=== PATIENT | female | born 1975 | race Caucasian/White ===

== ENCOUNTER 2017-01-13 13:08 | Outpatient (CLI) | payer MEDICAID | END 2017-01-13 13:09 | disposition home or self-care (01) | DX: R42 Dizziness and giddiness (principal); R25.1 Tremor, unspecified; R53.83 Other fatigue ==

== ENCOUNTER 2017-08-22 19:18 | Outpatient (CLI) | payer MEDICAID | END 2017-08-22 19:19 | disposition home or self-care (01) | LOC: LAB.R 19:18 | PROVIDERS: ATTEND Nurse Practitioner Family | DX: N39.0 Urinary tract infection, site not specified (principal); Z11.3 Encounter for screening for infections with a predominantly sexual mode of transmission | CPT/HCPCS: 87086; 87491; 87591 ==

== ENCOUNTER 2017-11-24 08:23 | Outpatient (CLI) | payer MEDICAID ==
[2017-11-24 12:44] LABS: BASOPHILS % (AUTO) 0.5 %; EOSINOPHILS # (AUTO) 0.4 10^3/uL (0.0-0.7); EOSINOPHILS % (AUTO) 6.6 %; LYMPHOCYTES % (AUTO) 31.1 %; MEAN CORPUSCULAR HEMOGLOBIN 29.8 pg (27.0-31.0); MEAN CORPUSCULAR HGB CONC 33.6 g/dL (32.0-36.0); MEAN CORPUSCULAR VOLUME 88.8 fL (81.0-99.0); MEAN PLATELET VOLUME 11.2 fL (7.9-10.8); MONOCYTES # (AUTO) 0.5 10^3/uL (0.0-1.0); MONOCYTES % (AUTO) 7.8 %; NEUTROPHILS # (AUTO) 3.4 10^3/uL (1.5-6.6); PLT - PLATELET COUNT 168 10^3/uL (130-450); RED BLOOD COUNT 4.34 10^6/uL (4.20-5.40); RED CELL DISTRIBUTION WIDTH 13.9 % (12.0-15.0); WHITE BLOOD COUNT 6.3 x10^3/uL (4.8-10.8)
[2017-11-24 13:12] LABS: PLATELET ESTIMATE, MANUAL NORMAL (130-450,000) (NORMAL); PLATELET MORPHOLOGY 1+ LARGE PLATELETS (NORMAL); RBC MORPHOLOGY (MULTIPLE) NORMAL APPEARANCE (NORMAL)
[2017-11-24 13:14] LABS: % IRON SATURATION 21 % (20-50); ALBUMIN 4.2 g/dL (3.2-5.5); ALBUMIN/GLOBULIN RATIO 1.5 (1.0-2.2); ALKALINE PHOSPHATASE 67 IU/L (42-121); ALT ALANINE AMINOTRANSFERASE 18 IU/L (10-60); AST ASPARTATE AMINOTRANSFERASE 31 IU/L (10-42); BILIRUBIN,TOTAL 0.7 mg/dL (0.2-1.0); BUN - BLOOD UREA NITROGEN 11 mg/dL (6-20); CALCIUM 8.9 mg/dL (8.5-10.3); CARBON DIOXIDE - CO2 27 mmol/L (21-32); CHLORIDE 101 mmol/L (101-111); CHOL/HDL RATIO 2.8 (<4.4); CHOLESTEROL 193 mg/dL; CREATININE 0.9 mg/dL (0.4-1.0); GFR - MDRD 68 (>89); GLUCOSE 87 mg/dL (70-100); HDL CHOLESTEROL 69 mg/dL; IRON 80 ug/dL (28-170); LDL CHOLESTEROL,CALCULATED 103 mg/dL; LDL/HDL RATIO 1.5 (<4.4); SODIUM 136 mmol/L (135-145); TOTAL IRON BINDING CAPACITY 372 ug/dL (250-450); TRANSFERRIN 266 mg/dL (192-382); VLDL CHOLESTEROL 21 mg/dL
== END 2017-11-24 08:24 | disposition home or self-care (01) ==
LOC: LAB.F 08:23
PROVIDERS: ATTEND Nurse Practitioner Family
DX: R53.83 Other fatigue (principal); Z13.6 Encounter for screening for cardiovascular disorders
CPT/HCPCS: 36415; 80053; 80061; 83540; 83721; 84443; 84466; 85025

== ENCOUNTER 2018-02-10 13:10 | Outpatient (CLI) | payer MEDICAID ==
--- NOTE | 2018-02-11 16:36 | MRI Report ---
EXAM: LEFT KNEE MRI WITHOUT CONTRAST EXAM DATE: 02/10/2018 01:51 PM. CLINICAL HISTORY: Left knee pain for years. COMPARISON: None. TECHNIQUE: Multiplanar, multisequence T1-weighted and fluid-sensitive sequences of the knee without c ontrast. Other: None. FINDINGS: Bones: No fractures. Red marrow reconversion is in the visualized bones. Articular Cartilage: Unremarkable. Medial Meniscus: The medial meniscus is intact. Lateral Meniscus: The lateral meniscus is intact. Cruciate Ligaments: The anterior and posterior cruciate ligaments are intact. Collateral Ligaments: The medial collateral and lateral collateral ligamentous structures are intact. Tendons: The quadriceps, patellar, semimembranosus, and popliteus tendons are unremarkable. Musculature: No edema or fatty atrophy. Other: No effusion. A moderate-sized popliteal cyst has ruptured. It measures 3.6 x 1.2 x 7.0 cm. No loose bodies. The medial and lateral retinacula are intact. Pre-patellar subcutaneous edema is seen. IMPRESSION: Ruptured, moderate-sized popliteal cyst. [facility]CULOSKE[facility] SECTION Referring Provider Line: [phone] SITE ID: [id number]
== END 2018-02-10 13:11 | disposition home or self-care (01) ==
LOC: DI 13:10
PROVIDERS: ATTEND Nurse Practitioner Family
DX: M25.562 Pain in left knee (principal); M66.0 Rupture of popliteal cyst

== ENCOUNTER 2018-07-26 15:54 | Outpatient (CLI) | payer MEDICAID ==
--- NOTE | 2018-07-26 16:38 | XRAY Report ---
Reason: CHEST PAIN,NON CARDIAC Procedure Date: 07/26/2018 Accession Number: [id number] / [id number] Procedure: XR - Chest 2 View X-Ray CPT Code: 05004 FULL RESULT: EXAM: CHEST RADIOGRAPHY EXAM DATE: 07/26/2018 04:18 PM. CLINICAL HISTORY: CHEST PAIN,NON CARDIAC. COMPARISON: None. TECHNIQUE: 2 views. FINDINGS: Lungs/Pleura: No focal opacities evident. No pleural effusion. No pneumothorax. Normal volumes. Mediastinum: Heart and mediastinal contours are unremarkable. Other: None. IMPRESSION: Normal 2-view chest radiography. [facility]
== END 2018-07-26 15:55 | disposition home or self-care (01) ==
LOC: DI 15:54
PROVIDERS: ATTEND Nurse Practitioner Family
DX: R07.89 Other chest pain (principal)
CPT/HCPCS: 71046

== ENCOUNTER 2019-05-05 11:17 | Emergency (ER) | payer MEDICAID ==
[2019-05-05 12:21] LABS: BASOPHILS # (AUTO) 0.1 10^3/uL (0.0-0.1); BASOPHILS % (AUTO) 0.5 %; EOSINOPHILS # (AUTO) 0.2 10^3/uL (0.0-0.7); EOSINOPHILS % (AUTO) 2.2 %; HGB - HEMOGLOBIN 14.9 g/dL (12.0-16.0); LYMPHOCYTES # (AUTO) 1.1 10^3/uL (1.5-3.5); MEAN CORPUSCULAR HEMOGLOBIN 30.7 pg (27.0-31.0); MEAN CORPUSCULAR HGB CONC 32.8 g/dL (32.0-36.0); MEAN CORPUSCULAR VOLUME 93.6 fL (81.0-99.0); MEAN PLATELET VOLUME 12.9 fL (7.9-10.8); MONOCYTES # (AUTO) 0.6 10^3/uL (0.0-1.0); MONOCYTES % (AUTO) 6.6 %; NEUTROPHILS # (AUTO) 7.1 10^3/uL (1.5-6.6); NEUTROPHILS % (AUTO) 78.3 %; PLT - PLATELET COUNT 131 10^3/uL (130-450); RED BLOOD COUNT 4.85 10^6/uL (4.20-5.40); RED CELL DISTRIBUTION WIDTH 12.8 % (12.0-15.0); WHITE BLOOD COUNT 9.1 x10^3/uL (4.8-10.8)
--- NOTE | 2019-05-05 12:32 | ED Physician Documentation ---
History of Present Illness - Stated complaint Stated Complaint: FAINTING SPELLS, DIZZINESS - Chief complaint Chief Complaint: Neuro - Additonal information Additional information: This is a 43-year-old female who presents with an episode of syncope today. Patient was at home with her son, when she began to feel lightheaded, then she passed out. Her son is with her and states that she did not obviously hit her head. She may have stopped breathing for around 20 seconds, but had a pulse. He then yelled at her and she opened her eyes and woke up, however she was slightly confused for the next several minutes. He did not see any convulsions posturing or seizure-like activity. He is very familiar seizures as his previous partner had a seizure disorder. Patient is now feeling well other than being somewhat dehydrated. She denies chest pain, shortness of breath. She has had an episode of syncope in the past, but has not had the confusion afterwards. She denies tongue biting. She had some leakage of urine but no large volume incontinence. No vomiting or nausea or fever. No headache or vision change. Review of Systems Constitutional: denies: Fever Eyes: denies: Loss of vision Throat: denies: Oral lesions / sores Cardiac: denies: Chest pain / pressure Respiratory: denies: Dyspnea GI: denies: Abdominal Pain : denies: Dysuria Skin: denies: Laceration (s) Musculoskeletal: denies: Neck pain Neurologic: reports: Syncope PD PAST MEDICAL HISTORY - Past Medical History Past Medical History: Yes Cardiovascular: None Respiratory: None Neuro: None GI: None RINKMAN: None : None HEENT: None Psych: Depression, Anxiety Musculoskeletal: None Derm: None - Past Surgical History Past Surgical History: Yes /RINKMAN: section - Allergies Allergies/Adverse Reactions: Allergies Allergy/AdvReac Type Severity Reaction Status Date / Time nortriptyline Allergy Unknown Verified 05/05/19 11:27 - Social History Does the pt smoke?: Yes Smoking Status: Current every day smoker Does the pt drink ETOH?: Yes Does the pt have substance abuse?: Yes Substance Use and Type: Marijuana - Immunizations Immunizations are current?: Yes - POLST Patient has POLST: No Results - Vitals Vitals: Vital Signs - 24 hr 05/05/19 05/05/19 05/05/19 11:27 12:14 12:30 Temperature 36.3 C L Heart Rate 53 L 52 L 52 L Respiratory 16 18 12 Rate Blood Pressure 140/77 H 151/94 H 143/96 H O2 Saturation 99 99 99 05/05/19 13:00 Temperature Heart Rate 55 L Respiratory 14 Rate Blood Pressure 132/95 H O2 Saturation 97 Oxygen O2 Source Room air - EKG (time done) 11:36 Rate: Rate (enter#) Other comments: Other comments (EKG, my interpretation: Rate 53, rhythm sinus bradycardia, axis normal, intervals within normal limits, there is no ST segment elevation or depression.) - Labs Labs: Laboratory Tests 05/05/19 05/05/19 05/05/19 12:15 12:15 12:15 WBC 9.1 RBC 4.85 Hgb 14.9 Hct 45.4 MCV 93.6 MCH 30.7 MCHC 32.8 RDW 12.8 Plt Count 131 MPV 12.9 H Neut # (Auto) 7.1 H Lymph # (Auto) 1.1 L [place] # (Auto) 0.6 Eos # (Auto) 0.2 Baso # (Auto) 0.1 Absolute Nucleated RBC 0.00 Total Counted 100 Band Neuts % (Manual) 13 H Abnorm Lymph % (Manual) 0 Metamyelocytes % 2 H Myelocytes % 1 H Nucleated RBC % 0.0 Neutrophils # (Manual) 7.7 H Lymphocytes # (Manual) 0.5 L Monocytes # (Manual) 0.5 Eosinophils # (Manual) 0.0 Basophils # (Manual) 0.1 Manual Slide Review Indicated Sodium 140 Potassium 3.9 Chloride 104 Carbon Dioxide 26 Anion Gap 10.0 BUN 9 Creatinine 0.8 Estimated GFR (MDRD) 78 L Glucose 101 H Calcium 9.2 Total Bilirubin 0.6 AST 21 ALT 14 Alkaline Phosphatase 50 Troponin I Troponin I High Sens 3.2 Total Protein 7.1 Albumin 4.5 Globulin 2.6 Albumin/Globulin Ratio 1.7 Lipase 26 Urine Color Urine Clarity Urine pH Ur Specific [place] Urine Protein Urine Glucose (UA) Urine Ketones Urine Occult Blood Urine Nitrite Urine Bilirubin Urine Urobilinogen Ur Leukocyte Esterase Ur Microscopic Review Urine Culture Comments 05/05/19 05/05/19 12:15 13:09 WBC RBC Hgb Hct MCV MCH MCHC RDW Plt Count MPV Neut # (Auto) Lymph # (Auto) [place] # (Auto) Eos # (Auto) Baso # (Auto) Absolute Nucleated RBC Total Counted Band Neuts % (Manual) Abnorm Lymph % (Manual) Metamyelocytes % Myelocytes % Nucleated RBC % Neutrophils # (Manual) Lymphocytes # (Manual) Monocytes # (Manual) Eosinophils # (Manual) Basophils # (Manual) Manual Slide Review Sodium Potassium Chloride Carbon Dioxide Anion Gap BUN Creatinine Estimated GFR (MDRD) Glucose Calcium Total Bilirubin AST ALT Alkaline Phosphatase Troponin I < 0.04 Troponin I High Sens Total Protein Albumin Globulin Albumin/Globulin Ratio Lipase Urine Color YELLOW Urine Clarity CLEAR Urine pH 7.0 Ur Specific [place] 1.010 Urine Protein NEGATIVE Urine Glucose (UA) NEGATIVE Urine Ketones NEGATIVE Urine Occult Blood NEGATIVE Urine Nitrite NEGATIVE Urine Bilirubin NEGATIVE Urine Urobilinogen 0.2 (NORMAL) Ur Leukocyte Esterase NEGATIVE Ur Microscopic Review NOT INDICATED Urine Culture Comments NOT INDICATED PD MEDICAL DECISION MAKING - ED course Complexity details: considered differential (Dysrhythmia, dehydration, ACS, vasovagal episode, anemia, electrolyte abnormality, seizure) ED course: On examination patient is well-appearing bradycardia which is patient's baseline, neurologic exam is unremarkable with no deficits. EKG was obtained which showed sinus bradycardia without signs of ischemia or dysrhythmia, no Gleqr-Csbiradde-Dfuks, no QT prolongation, no signs of Brugada syndrome Or hypertrophic cardiomyopathy. Labs are unrevealing, including CBC, CMP, troponin, Urinalysis. Patient is very asymptomatic with no chest pain, no shortness of breath, no abdominal pain. She had a witnessed syncope, with no signs of seizure, she has no tongue biting. I feel that seizure is unlikely. She has no headache, normal neurologic exam I do not feel that she will benefit from imaging of her head today. I think most likely she suffered a vasovagal episode versus lightheadedness and syncope secondary to some mild dehydration. I discussed her work-up as well as the diagnostic uncertainty, recommend that she follow-up closely with her PCP, and she states adequately hydrated, but she avoid any activities that could cause injury to her others if she passes out again. She knows to return to emerge department if she has any concerning symptoms or further episodes of passing out. She was able to ambulate independently without issue, is tolerating p.o. Patient was discharged home in care of family. Departure - Departure Disposition: 01 Home, Self Care Clinical Impression: Syncope Qualifiers: Syncope type: unspecified Qualified Code(s): R55 - Syncope and collapse Condition: Good Instructions: ED Fainting Unkn Cause Follow-Up: Gabriela Moss ARNP [Primary Care Provider] - Within 1 week Comments: You were seen today because you passed out. There is unclear what caused this, but your labs and exam today were reassuring. If you have any further passing out, any chest pain, shortness of breath, fever, confusion, or other concerning symptoms, return to the emergency department immediately. Otherwise please follow-up with your primary care provider. Make sure that you are hydrating adequately, and avoid activities that could be dangerous if you pass out, such as driving, climbing at heights, or bathing/swimming unsupervised. Discharge Date/Time: 05/05/19 15:08
[2019-05-05 12:34] LABS: ALBUMIN 4.5 g/dL (3.2-5.5); ALBUMIN/GLOBULIN RATIO 1.7 (1.0-2.2); BILIRUBIN,TOTAL 0.6 mg/dL (0.2-1.0); CALCIUM 9.2 mg/dL (8.5-10.3); CREATININE 0.8 mg/dL (0.4-1.0); TOTAL PROTEIN 7.1 g/dL (6.7-8.2)
[2019-05-05 12:59] LABS: ABNORMAL LYMPHS % (MANUAL) 0 %
[2019-05-05 13:00] LABS: BAND NEUTROPHILS % (MANUAL) 13 %; BASOPHILS # (MANUAL) 0.1 10^3/uL (0-0.1); BASOPHILS % (MANUAL) 1 %; LYMPHOCYTES # (MANUAL) 0.5 10^3/uL (1.5-3.5); LYMPHOCYTES % (MANUAL) 6 %; METAMYELOCYTES % (MANUAL) 2 %; MONOCYTES # (MANUAL) 0.5 10^3/uL (0.0-1.0); MYELOCYTES % (MANUAL) 1 %
[2019-05-05 13:15] VITALS: BP 132/95
[2019-05-05 13:17] LABS: BILIRUBIN,URINE NEGATIVE (NEGATIVE); GLUCOSE, URINE (UA) NEGATIVE (NEGATIVE); KETONES,URINE (UA) NEGATIVE (NEGATIVE); LEUKOCYTE ESTERASE, URINE NEGATIVE (NEGATIVE); NITRITE,URINE NEGATIVE (NEGATIVE); OCCULT BLOOD,URINE NEGATIVE (NEGATIVE); PROTEIN,URINE NEGATIVE (NEGATIVE); UROBILINOGEN,URINE 0.2 (NORMAL) E.U./dL (NORMAL)
[2019-05-05 13:23] LABS: CLARITY,URINE CLEAR (CLEAR)
--- NOTE | 2019-05-05 13:44 | XRAY Report ---
Reason: cough Procedure Date: 05/05/2019 Accession Number: [id number] / [id number] Procedure: XR - Chest 2 View X-Ray CPT Code: 82306 FULL RESULT: EXAM: CHEST RADIOGRAPHY EXAM DATE: 05/05/2019 01:15 PM. CLINICAL HISTORY: Cough. COMPARISON: CHEST 2 VIEW 07/26/2018 4:18 PM. TECHNIQUE: 2 views. FINDINGS: Lungs/Pleura: No focal opacities evident. No pleural effusion. No pneumothorax. Normal volumes. Mediastinum: Heart and mediastinal contours are unremarkable. Other: None. IMPRESSION: Normal 2-view chest radiography. [facility]
== END 2019-05-05 15:08 | disposition home or self-care (01) ==
LOC: ED 11:17
DX: R55 Syncope and collapse (principal); F17.200 Nicotine dependence, unspecified, uncomplicated
CPT/HCPCS: 36415; 71046; 80053; 81001; 81003; 83690; 84484; 85025; 87086; 93005; 99283; 99284

== ENCOUNTER 2019-10-28 10:00 | Outpatient (CLI) | payer MEDICAID | END 2019-10-28 23:59 | disposition home or self-care (01) | LOC: LAB.R 10:00 | PROVIDERS: ATTEND Physician Assistant Medical | DX: N39.0 Urinary tract infection, site not specified (principal) | CPT/HCPCS: 87086; 87181 ==

== ENCOUNTER 2020-10-23 08:00 | Outpatient (CLI) | payer MEDICAID | END 2020-10-23 23:59 | disposition home or self-care (01) | LOC: LAB.R 08:00 | PROVIDERS: ATTEND Physician Assistant Medical | DX: B00.89 Other herpesviral infection (principal) | CPT/HCPCS: 87252 ==

== ENCOUNTER 2020-10-23 15:00 | Outpatient (CLI) | payer MEDICAID | END 2020-10-23 23:59 | disposition home or self-care (01) | LOC: LAB.S 15:00 | PROVIDERS: ATTEND Physician Assistant Medical | DX: J02.9 Acute pharyngitis, unspecified (principal) | CPT/HCPCS: 87070 ==

== ENCOUNTER 2020-12-11 08:00 | Outpatient (CLI) | payer MEDICAID ==
[2020-12-11 20:05] LABS: BILIRUBIN,URINE NEGATIVE (NEGATIVE); GLUCOSE, URINE (UA) NEGATIVE (NEGATIVE); KETONES,URINE (UA) TRACE mg/dL (NEGATIVE); LEUKOCYTE ESTERASE, URINE NEGATIVE (NEGATIVE); NITRITE,URINE NEGATIVE (NEGATIVE); OCCULT BLOOD,URINE TRACE-INTA (NEGATIVE); PH,URINE 6.5 PH (5.0-7.5); PROTEIN,URINE NEGATIVE (NEGATIVE); UROBILINOGEN,URINE 0.2 (NORMAL) E.U./dL (NORMAL)
[2020-12-11 20:08] LABS: BASOPHILS # (AUTO) 0.1 10^3/uL (0.0-0.1); BASOPHILS % (AUTO) 0.6 %; EOSINOPHILS # (AUTO) 0.6 10^3/uL (0.0-0.7); EOSINOPHILS % (AUTO) 7.3 %; HCT - HEMATOCRIT 46.3 % (37.0-47.0); HGB - HEMOGLOBIN 15.3 g/dL (12.0-16.0); LYMPHOCYTES % (AUTO) 25.4 %; MEAN CORPUSCULAR VOLUME 93.7 fL (81.0-99.0); MEAN PLATELET VOLUME 13.3 fL (7.9-10.8); MONOCYTES # (AUTO) 0.5 10^3/uL (0.0-1.0); MONOCYTES % (AUTO) 6.8 %; NEUTROPHILS # (AUTO) 4.7 10^3/uL (1.5-6.6); NEUTROPHILS % (AUTO) 59.6 %; PLT - PLATELET COUNT 134 10^3/uL (130-450); RED BLOOD COUNT 4.94 10^6/uL (4.20-5.40); RED CELL DISTRIBUTION WIDTH 13.4 % (12.0-15.0); WHITE BLOOD COUNT 7.9 x10^3/uL (4.8-10.8)
[2020-12-11 20:12] LABS: AMORPHOUS SEDIMENT,UR Marked /LPF; BACTERIA,URINE None Seen /HPF (None Seen); CLARITY,URINE CLOUDY (CLEAR); RBC,URINE 0-5 /HPF (0-5); SQUAMOUS EPITHELIAL CELL,UR FEW Squamous (<= Few); WBC,URINE 0-3 /HPF (0-5)
[2020-12-11 20:19] LABS: ALBUMIN 4.1 g/dL (3.2-5.5); ALBUMIN/GLOBULIN RATIO 1.5 (1.0-2.2); BILIRUBIN,TOTAL 1.3 mg/dL (0.2-1.0); CALCIUM 8.6 mg/dL (8.5-10.3); CREATININE 0.8 mg/dL (0.4-1.0); POTASSIUM 3.6 mmol/L (3.5-5.0); TOTAL PROTEIN 6.9 g/dL (6.7-8.2)
[2020-12-11 20:41] LABS: PLATELET MORPHOLOGY 1+ LARGE PLATELETS (NORMAL); RBC MORPHOLOGY (MULTIPLE) NORMAL APPEARANCE (NORMAL)
[2020-12-11 20:42] LABS: PLATELET ESTIMATE, MANUAL NORMAL (130-450,000) (NORMAL)
== END 2020-12-11 23:59 | disposition home or self-care (01) ==
LOC: LAB.S 08:00
PROVIDERS: ATTEND Emergency Medicine
DX: R11.2 Nausea with vomiting, unspecified (principal)
CPT/HCPCS: 36415; 80053; 81001; 83690; 85025; 87086

== ENCOUNTER 2021-01-05 14:39 | Outpatient (CLI) | payer MEDICAID ==
[2021-01-06 02:02] LABS: CHLAMYDIA TRACHOMATIS DNA NEGATIVE (NEGATIVE); NEISSERIA GONORRHOEAE DNA NEGATIVE (NEGATIVE); TRICHOMONAS VAGINALIS DNA NEGATIVE (NEGATIVE)
== END 2021-01-05 23:59 | disposition home or self-care (01) ==
LOC: LAB.R 14:39
PROVIDERS: ATTEND Physician Assistant
DX: Z72.89 Other problems related to lifestyle (principal)
CPT/HCPCS: 87491; 87591; 87661

== ENCOUNTER 2021-03-29 13:23 | Outpatient (CLI) | payer MEDICAID | END 2021-03-29 13:24 | disposition critical access hospital (66) | LOC: EMS 13:23 | DX: R55 Syncope and collapse (principal); R11.10 Vomiting, unspecified; R61 Generalized hyperhidrosis; R53.1 Weakness; R68.83 Chills (without fever) | CPT/HCPCS: A0425; A0427; A0999 ==

== ENCOUNTER 2021-03-29 13:58 | Emergency (ER) | payer MEDICAID ==
[2021-03-29 14:14] VITALS: BP 163/76
[2021-03-29] MEDS ORDERED: SODIUM CHLORIDE 0.9% 1,000 ML IV STA (14:37)
--- NOTE | 2021-03-29 14:58 | ED Physician Documentation ---
History of Present Illness - Stated complaint Stated Complaint: VOMITING - Chief complaint Chief Complaint: Allergic Rx - History obtained from History obtained from: Patient - Additonal information Additional information: Received [employer] Covid vaccine, about a minute later became dizzy and weak and passed out. She came to quickly and her son caught her so there was no injury. 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 : None, Incontinence, Frequency HEENT: None Psych: Depression, Anxiety Musculoskeletal: None Derm: None - Past Surgical History Past Surgical History: Yes /GAME TRAPPER: section - Allergies Allergies/Adverse Reactions: Allergies Allergy/AdvReac Type Severity Reaction Status Date / Time nortriptyline Allergy Unknown Verified 03/29/21 14:10 - Social History Does the pt smoke?: Yes Smoking Status: Current every day smoker Does the pt drink ETOH?: Yes Does the pt have substance abuse?: Yes - Immunizations Immunizations are current?: Yes - POLST Patient has POLST: No PD ED PE NORMAL - Vitals Vital signs reviewed: Yes - General General: Alert and oriented X 3, No acute distress - HEENT HEENT: PERRL, Pharynx benign - Cardiac Cardiac: RRR, No murmur - Respiratory Respiratory: No respiratory distress, Clear bilaterally - Abdomen Abdomen: Soft, Non tender - Back Back: No CVA TTP, No spinal TTP - Derm Derm: Normal color, Warm and dry - Extremities Extremities: No edema, No calf tenderness / cord - Neuro Neuro: Alert and oriented X 3, Normal speech Results - Vitals Vitals: Vital Signs - 24 hr 03/29/21 03/29/21 14:10 14:14 Temperature 36.5 C 36.5 C Heart Rate 54 L 54 L Respiratory 16 16 Rate Blood Pressure 163/76 H 163/76 H O2 Saturation 98 98 Oxygen O2 Source Room air - EKG (time done) 1442 Rate: Rate (enter#) (56) Rhythm: NSR [place]: Normal QRS: LVH Ischemia: Normal ST segments - Labs Labs: Laboratory Tests 03/29/21 03/29/21 14:59 14:59 WBC 15.2 H RBC 4.94 Hgb 15.2 Hct 46.5 MCV 94.1 MCH 30.8 MCHC 32.7 RDW 13.7 Plt Count 127 L MPV 12.3 H Neut # (Auto) 12.9 H Lymph # (Auto) 1.1 L [place] # (Auto) 1.0 Eos # (Auto) 0.1 Baso # (Auto) 0.1 Absolute Nucleated RBC 0.00 Nucleated RBC % 0.0 Sodium 135 Potassium 3.4 L Chloride 100 L Carbon Dioxide 23 Anion Gap 12.0 BUN 11 Creatinine 0.7 Estimated GFR (MDRD) 90 Glucose 115 H Calcium 8.2 L Total Bilirubin 0.8 AST 18 ALT 14 Alkaline Phosphatase 54 Total Protein 6.3 L Albumin 4.0 Globulin 2.3 Albumin/Globulin Ratio 1.7 Lipase 25 PD MEDICAL DECISION MAKING - ED course ED course: 45-year-old woman presents with what sounds like a vasovagal reaction afternoon vaccination today. No signs of allergic reaction or anaphylaxis. We will observe her for a little bit and check some baseline labs. After period of observations her symptoms had resolved and she requested discharge. Departure - Departure Disposition: 01 Home, Self Care Clinical Impression: Syncope Qualifiers: Syncope type: vasovagal syncope Qualified Code(s): R55 - Syncope and collapse Condition: Good Record reviewed to determine appropriate education?: Yes Instructions: ED Syncope Vasovagal Comments: Call your doctor to arrange a follow-up appointment, make the next available appointment. In the interim, return anytime if worse or if new symptoms develop. Discharge Date/Time: 03/29/21 15:45
[2021-03-29 15:11] LABS: BASOPHILS # (AUTO) 0.1 10^3/uL (0.0-0.1); BASOPHILS % (AUTO) 0.5 %; EOSINOPHILS # (AUTO) 0.1 10^3/uL (0.0-0.7); EOSINOPHILS % (AUTO) 0.8 %; HCT - HEMATOCRIT 46.5 % (37.0-47.0); HGB - HEMOGLOBIN 15.2 g/dL (12.0-16.0); LYMPHOCYTES # (AUTO) 1.1 10^3/uL (1.5-3.5); LYMPHOCYTES % (AUTO) 7.2 %; MEAN CORPUSCULAR HEMOGLOBIN 30.8 pg (27.0-31.0); MEAN CORPUSCULAR HGB CONC 32.7 g/dL (32.0-36.0); MEAN CORPUSCULAR VOLUME 94.1 fL (81.0-99.0); MEAN PLATELET VOLUME 12.3 fL (7.9-10.8); MONOCYTES % (AUTO) 6.4 %; NEUTROPHILS # (AUTO) 12.9 10^3/uL (1.5-6.6); NEUTROPHILS % (AUTO) 84.6 %; PLT - PLATELET COUNT 127 10^3/uL (130-450); RED BLOOD COUNT 4.94 10^6/uL (4.20-5.40); RED CELL DISTRIBUTION WIDTH 13.7 % (12.0-15.0); WHITE BLOOD COUNT 15.2 x10^3/uL (4.8-10.8)
[2021-03-29 15:19] LABS: ALBUMIN/GLOBULIN RATIO 1.7 (1.0-2.2); BILIRUBIN,TOTAL 0.8 mg/dL (0.2-1.0); CALCIUM 8.2 mg/dL (8.5-10.3); CREATININE 0.7 mg/dL (0.4-1.0); POTASSIUM 3.4 mmol/L (3.5-5.0); TOTAL PROTEIN 6.3 g/dL (6.7-8.2)
== END 2021-03-29 15:45 | disposition home or self-care (01) ==
LOC: EDUNIT# → ED 13:58
DX: R55 Syncope and collapse (principal); T50.B95A Adverse effect of other viral vaccines, initial encounter; Y84.8 Other medical procedures as the cause of abnormal reaction of the patient, or of later complication, without mention of misadventure at the time of the procedure; F17.200 Nicotine dependence, unspecified, uncomplicated
CPT/HCPCS: 36415; 80053; 83690; 85025; 93005; 99282; 99283

== ENCOUNTER 2021-08-09 11:25 | Outpatient (CLI) | payer MEDICAID | END 2021-08-09 11:26 | disposition critical access hospital (66) | LOC: EMS 11:25 | DX: M25.512 Pain in left shoulder (principal) | CPT/HCPCS: A0425; A0427 ==

== ENCOUNTER 2021-08-09 11:49 | Emergency (ER) | payer MEDICAID ==
[2021-08-09] MEDS ORDERED: KETOROLAC 30 MG/ML VIAL IVP STA (12:02)
[2021-08-09] MEDS ORDERED: diazePAM INJ 5 MG/ML SYRINGE IVP STA (12:02)
--- NOTE | 2021-08-09 12:07 | ED Physician Documentation ---
History of Present Illness - Stated complaint Stated Complaint: SHOULDER PAIN - Chief complaint Chief Complaint: Ext Problem - History obtained from History obtained from: Patient - Additonal information Additional information: Comes emergency department chief complaint of left shoulder pain that started this morning. Patient states she felt the pain back by her left scapula and thought that she had "slept wrong". She states she went to take a shower and pain started getting worse. She states it hurts to move, and no position makes it better. No chest pain or shortness of breath. No lightheadedness. No injury or history of any shoulder problems previously. No other complaints at this time. Review of Systems Ten Systems: 10 systems reviewed and negative Constitutional: reports: Reviewed and negative Eyes: reports: Reviewed and negative Ears: reports: Reviewed and negative Nose: reports: Reviewed and negative Throat: reports: Reviewed and negative Cardiac: reports: Reviewed and negative Respiratory: reports: Reviewed and negative GI: reports: Reviewed and negative : reports: Reviewed and negative Skin: reports: Reviewed and negative Musculoskeletal: reports: Joint pain Neurologic: reports: Reviewed and negative Psychiatric: reports: Reviewed and negative Endocrine: reports: Reviewed and negative Immunocompromised: reports: Reviewed and negative PD PAST MEDICAL HISTORY - Past Medical History Cardiovascular: None Respiratory: None Neuro: None GI: None 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 : None, Incontinence, Frequency HEENT: None Psych: Depression, Anxiety Musculoskeletal: None Derm: None - Past Surgical History Past Surgical History: Yes /AIR LAUNCH WEAPONS 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: section - Present Medications Home Medications: Ambulatory Orders Medication Instructions Recorded Confirmed Cyclobenzaprine [Flexeril] 10 mg PO TID PRN #20 tablet 08/09/21 HYDROcod/ACETAM 5/325 [Bluejacket 5/325] 1 - 2 tablet PO Q6H PRN #14 tablet 08/09/21 - Allergies Allergies/Adverse Reactions: Allergies Allergy/AdvReac Type Severity Reaction Status Date / Time nortriptyline Allergy Unknown Verified 08/09/21 12:01 - Social History Does the pt smoke?: Yes Smoking Status: Current every day smoker Does the pt drink ETOH?: Yes Does the pt have substance abuse?: Yes - Immunizations Immunizations are current?: Yes - POLST Patient has POLST: No PD ED PE NORMAL - Vitals Vital signs reviewed: Yes - General General: Alert and oriented X 3, Well developed/nourished, Other (Patient is wincing and gripping her left shoulder) - HEENT HEENT: Atraumatic, PERRL, EOMI, Moist mucous membranes - Neck Neck: Supple, no meningeal sign - Cardiac Cardiac: RRR, No murmur - Respiratory Respiratory: No respiratory distress, Clear bilaterally - Abdomen Abdomen: Soft, Non tender, Non distended - Derm Derm: Normal color, Warm and dry, No rash - Extremities Extremities: No deformity, No edema, No calf tenderness / cord, Other (Patient is holding her left arm across her body, gripping back toward the posterior aspect of the shoulder. Marked tenderness over the lateral aspect of left shoulder as well as intrascapular musculature. No contusion, deformity, or edema.). 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, No motor deficit, No sensory deficit, Normal speech - Psych Psych: Normal mood, Normal affect Results - Vitals Vitals: Oxygen O2 Source Room air - EKG (time done) 1244 Rate: Rate (enter#) (54) Rhythm: NSR [place]: Other (indeterminate axis) Intervals: Normal MD QRS: LVH Ischemia: Normal ST segments Compare to prior EKG: Old EKG unavailable Computer interpretation: Agree with computer - Labs Labs: Laboratory Tests 08/09/21 08/09/21 08/09/21 13:02 13:02 13:02 WBC 12.3 H RBC 5.09 Hgb 16.0 Hct 48.0 H MCV 94.3 MCH 31.4 H MCHC 33.3 RDW 13.0 Plt Count 165 MPV 12.3 H Neut # (Auto) 10.4 H Lymph # (Auto) 1.0 L [place] # (Auto) 0.7 Eos # (Auto) 0.2 Baso # (Auto) 0.1 Absolute Nucleated RBC 0.00 Nucleated RBC % 0.0 D-Dimer 219.3 Sodium 139 Potassium 3.4 L Chloride 103 Carbon Dioxide 25 Anion Gap 11.0 BUN 11 Creatinine 0.7 Estimated GFR (MDRD) 89 Glucose 108 H Calcium 8.9 Total Bilirubin 0.5 AST 25 ALT 20 Alkaline Phosphatase 60 Troponin I High Sens Total Protein 7.1 Albumin 4.7 Globulin 2.4 Albumin/Globulin Ratio 2.0 Lipase 32 08/09/21 13:02 WBC RBC Hgb Hct MCV MCH MCHC RDW Plt Count MPV Neut # (Auto) Lymph # (Auto) [place] # (Auto) Eos # (Auto) Baso # (Auto) Absolute Nucleated RBC Nucleated RBC % D-Dimer Sodium Potassium Chloride Carbon Dioxide Anion Gap BUN Creatinine Estimated GFR (MDRD) Glucose Calcium Total Bilirubin AST ALT Alkaline Phosphatase Troponin I High Sens 3.4 Total Protein Albumin Globulin Albumin/Globulin Ratio Lipase - Rads (name of study) L shoulder XR Radiology: Final report received, EMP read indepedently, See rad report (neg) chest XR Radiology: Final report received, EMP read indepedently, See rad report (neg) PD MEDICAL DECISION MAKING - ED course Complexity details: reviewed results, re-evaluated patient, considered differential, d/w patient ED course: Patient was treated symptomatically in the emergency department and worked up with x-rays of the shoulder and chest, as well as EKG, all of which were negative. The pt had point tenderness and positional pain, and her sx were most consistent with a musculoskeletal etiology. Pt was treated with Valium, Toradol, Dilaudid, and Flexeril, in addition to the morphine she had received en-route. The pt stated none of it had helped her pain at all. She states that when she has had pain issues previously, 2 tabs of Vicodin has helped. I d/w pt that we have not discovered an emergent condition today. I will give her a prescription for a small amount of Vicodin at home. The pt is advised to follow up with her PCP. Departure - Departure Disposition: 01 Home, Self Care Clinical Impression: Pain of left scapula Shoulder pain, left Qualifiers: Chronicity: acute Qualified Code(s): M25.512 - Pain in left shoulder Condition: Stable Instructions: ED Spasm Muscle, ED Shoulder Pain [facility] Prescriptions: Cyclobenzaprine [Flexeril] 10 mg PO TID PRN #20 tablet PRN Reason: Spasms HYDROcod/ACETAM 5/325 [Bluejacket 5/325] 1 - 2 tablet PO Q6H PRN #14 tablet PRN Reason: Pain Comments: You have been tested with basic labs, as well as various tests to look for potential emergent causes of your symptoms. There is no evidence of a heart attack, blood clot, pneumothorax, aneurysm, or pneumonia. Your shoulder and chest x-rays look good. Your EKG also shows no evidence of an emergent cardiac condition. You have been treated with IV muscle relaxers, oral muscle relaxer, anti-inflammatory, and a strong narcotic pain medication, both in the ambulance and here in the emergency department. It is not clear why you continue to have some edge pain. You have been prescribed Vicodin, which you say has worked for you before. You may take up to 2 tablets every 4-6 hours as needed for pain. Please make an appointment with your primary care physician to be seen this week to follow-up your emergency department visit. Discharge Date/Time: 08/09/21 14:20
[2021-08-09 12:12] VITALS: BP 236/205
[2021-08-09] MEDS ORDERED: HYDROmorphone 1 MG/ML CARPUJECT IVP STA (12:46)
--- NOTE | 2021-08-09 12:52 | XRAY Report ---
PROCEDURE: Shoulder 3 View LT INDICATIONS: pain TECHNIQUE: 3 views of the shoulder were acquired. COMPARISON: None. FINDINGS: Bones: No fractures or dislocations. No suspicious bony lesions. Visualized ribs appear intact. Soft tissues: No suspicious soft tissue calcifications. IMPRESSION: No evidence acute bony abnormality of the left shoulder. If clinical suspicion and/or symptoms persist, further assessment with repeat plain films or advanced imaging (e.g., CT, MRI, or bone scan) may be helpful for further assessment. Reviewed by: Elijah Ch MD on 08/09/2021 12:51 PM PST Approved by: Elijah Ch MD on 08/09/2021 12:51 PM PST Station ID: [id number]
--- NOTE | 2021-08-09 12:53 | XRAY Report ---
PROCEDURE: Chest 1 View X-Ray INDICATIONS: chest pain TECHNIQUE: One view of the chest was acquired. COMPARISON: 05/05/2019 FINDINGS: Surgical changes and devices: None. Lungs and pleura: No pleural effusions or pneumothorax. Lungs are grossly clear. Mediastinum: Mediastinal contours appear normal. Heart size is normal. Bones and chest wall: No suspicious bony lesions. Overlying soft tissues appear unremarkable. IMPRESSION: No gross infiltrates. Reviewed by: Elijah Ch MD on 08/09/2021 12:51 PM [facility] Approved by: Elijah Ch MD on 08/09/2021 12:51 PM [facility] Station ID: [id number]
[2021-08-09] MEDS ORDERED: DEXAMETHASONE 10 MG/ML VIAL IVP STA (12:54)
[2021-08-09 13:10] LABS: BASOPHILS # (AUTO) 0.1 10^3/uL (0.0-0.1); BASOPHILS % (AUTO) 0.5 %; EOSINOPHILS # (AUTO) 0.2 10^3/uL (0.0-0.7); EOSINOPHILS % (AUTO) 1.6 %; LYMPHOCYTES % (AUTO) 8.4 %; MEAN CORPUSCULAR HEMOGLOBIN 31.4 pg (27.0-31.0); MEAN CORPUSCULAR HGB CONC 33.3 g/dL (32.0-36.0); MEAN CORPUSCULAR VOLUME 94.3 fL (81.0-99.0); MEAN PLATELET VOLUME 12.3 fL (7.9-10.8); MONOCYTES # (AUTO) 0.7 10^3/uL (0.0-1.0); MONOCYTES % (AUTO) 5.3 %; NEUTROPHILS # (AUTO) 10.4 10^3/uL (1.5-6.6); NEUTROPHILS % (AUTO) 83.9 %; PLT - PLATELET COUNT 165 10^3/uL (130-450); RED BLOOD COUNT 5.09 10^6/uL (4.20-5.40); WHITE BLOOD COUNT 12.3 x10^3/uL (4.8-10.8)
[2021-08-09 13:22] LABS: ALBUMIN 4.7 g/dL (3.2-5.5); BILIRUBIN,TOTAL 0.5 mg/dL (0.2-1.0); CALCIUM 8.9 mg/dL (8.5-10.3); CREATININE 0.7 mg/dL (0.4-1.0); POTASSIUM 3.4 mmol/L (3.5-5.0); TOTAL PROTEIN 7.1 g/dL (6.7-8.2)
[2021-08-09] MEDS ORDERED: CYCLOBENZAPRINE 10 MG TABLET PO STA (13:52)
== END 2021-08-09 14:20 | disposition home or self-care (01) ==
LOC: EDUNIT# → ED 11:49
DX: M25.512 Pain in left shoulder (principal); F17.200 Nicotine dependence, unspecified, uncomplicated
CPT/HCPCS: 36415; 71045; 73030; 80053; 83690; 84484; 85025; 85379; 93005; 96374; 96375; 99284; 99285; A9270; J1170

== ENCOUNTER 2021-08-20 15:56 | Emergency (ER) | payer MEDICAID ==
[2021-08-20] MEDS ORDERED: KETOROLAC 60 MG/2 ML VIAL IM STA (17:25)
[2021-08-20] MEDS ORDERED: DEXAMETHASONE 10 MG/ML VIAL PO STA (17:25)
[2021-08-20] MEDS ORDERED: CHERRY SYRUP 10 ML UDC PO ONE (17:25)
--- NOTE | 2021-08-20 17:28 | ED Physician Documentation ---
PD HPI BACK PAIN - Stated complaint Stated Complaint: PX RT NECK/SHOULD/ARM - Chief complaint Chief Complaint: Back Pain - History obtained from History obtained from: Patient - History of Present Illness Timing - onset: How many days ago (12) Timing - duration: Days (12) Timing - details: Abrupt onset, Still present Location: Upper, Left Quality: Pain, Spasm, Sharp Associated symptoms: Numbness (To the left hand and volar forearm). No: Fever, Weakness Improves with: Rest, Position, Meds Worsened by: Movement Similar symptoms before: Diagnosis Recently seen: Clinic, Emergency Dept - Additional information Additional information: 46-year-old female reports that 12 days ago she awoke with pain in the left side of her upper back and this has persisted. She did seek treatment as the pain was severe and she had some relief with Toradol administered in the urgent care clinic. She has recently been started on some prednisone and despite that still no relief with her symptoms. She is to having some numbness to the fingers on the left hand as well as the volar surface of the forearm. She feels like her hand wants to cramp up. She was seen and treated in the emergency department on 09 August and at that time she had a prescription for 14 Vicodin. She states that helped very little. She has not had any significant relief from her pain and comes into the emergency department today in tears. She has not been able to get into see her primary care doctor in follow-up. She does not recall an injury prior to this but she does recall that about a week before this all started she did have an episode where she ended up on the floor of her kitchen. She has been evaluated previously for syncopal episodes and she states that with this fall she did feel bruised but did not have any significant pain and certainly not the pain that she is experiencing in her left shoulder. Review of Systems Constitutional: denies: Fever, Chills Eyes: denies: Decreased vision Ears: denies: Ear pain Nose: denies: Congestion Throat: denies: Sore throat Cardiac: denies: Chest pain / pressure, Palpitations Respiratory: denies: Dyspnea, Cough GI: denies: Abdominal Pain, Nausea, Vomiting, Constipation, Diarrhea : denies: Dysuria, Frequency Skin: denies: Rash Musculoskeletal: reports: Neck pain, Back pain, Extremity pain Neurologic: reports: Numbness, Syncope. 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: section - Present Medications Home Medications: Ambulatory Orders Medication Instructions Recorded Confirmed Cyclobenzaprine [Flexeril] 10 mg PO TID PRN #20 tablet 08/09/21 HYDROcod/ACETAM 5/325 [[place] 5/325] 1 - 2 tablet PO Q6H PRN #14 tablet 08/09/21 Hydrocodone/Acetaminophen 1 - 2 each PO Q6HR PRN #14 tablet 08/20/21 [Hydrocodone-Acetamin 10-325 mg] - Allergies Allergies/Adverse Reactions: Allergies Allergy/AdvReac Type Severity Reaction Status Date / Time nortriptyline Allergy Unknown Verified 08/20/21 16:07 - Social History Does the pt smoke?: Yes Smoking Status: Current every day smoker Does the pt drink ETOH?: Yes Does the pt have substance abuse?: Yes - Immunizations Immunizations are current?: Yes - POLST Patient has POLST: No PD ED PE NORMAL - Vitals Vital signs reviewed: Yes (Marked hypertension) - General General: Alert and oriented X 3, Well developed/nourished - HEENT HEENT: Atraumatic, PERRL, EOMI - Neck Neck: Supple, no meningeal sign, No bony TTP, Other (There is dense muscle spasm overlying the insertion of the spinal accessory over the posterior aspect of the left shoulder over the supraspinatus. There is no specific point tenderness to the bony cervical spine. Palpation of this area induces the pain the pain the patient is having) - Cardiac Cardiac: RRR, No murmur - Respiratory Respiratory: No respiratory distress, Clear bilaterally - Abdomen Abdomen: Soft, Non tender - Derm Derm: Normal color, Warm and dry, No rash - Extremities Extremities: No deformity, No edema - Neuro Neuro: Alert and oriented X 3, documentation improvement specialist 2-12 intact, No motor deficit, No sensory deficit, Normal speech Eye Opening: Spontaneous Motor: Obeys Commands Verbal: Oriented GCS Score: 15 - Psych Psych: Normal mood, Normal affect Results - Vitals Vitals: Vital Signs - 24 hr 08/20/21 08/20/21 08/20/21 16:03 17:18 18:46 Temperature 36.8 C Heart Rate 75 90 59 L Respiratory 20 20 16 Rate Blood Pressure 218/140 H 220/137 H 186/104 H O2 Saturation 98 96 98 Oxygen O2 Source Room air Procedures - IVC sono (time) 1740 Bedside IVC sono: IVC measures (cm) (0.65), IVC collapsed c insp (cm) (complete), Profound dehydration (est 3 liter deficit) PD MEDICAL DECISION MAKING - ED course Complexity details: reviewed old records, reviewed results, re-evaluated patient, considered differential, d/w patient ED course: 46-year-old female with dense spasm of muscles in her left upper back has had poor relief with the usual treatments. She comes into the emergency department today appearing to be in pain markedly elevated blood pressure and I reviewed the patient's chart to find that she had been evaluated for syncopal episodes previously and I inquired about her hydration status. She ensured she assured me she drinks plenty of fluid. She tells me that she drinks Snapple tea and that she feels she has addiction to this. I became concerned about dehydration contributing to this patient's symptoms not improving and interrogated her inferior vena cava with a bedside ultrasound. I was surprised to find the degree of dehydration. Her vessel measured a scant 0.65 cm collapses completely with respiration indicating a volume deficit of more than 3 L. I discussed with the patient this with the patient and offered additional treatment to include intravenous fluid. She is administered dexamethasone 10 mg orally as well as Toradol 60 mg IM. IV line was begun after the patient had been treated. Departure - Departure Disposition: 01 Home, Self Care Clinical Impression: Cervical radiculopathy, Dehydration Condition: Stable Instructions: ED Dehydration, ED Cervical Radiculopathy Follow-Up: Maria Elena Hooker ARNP [Primary Care Provider] - Prescriptions: Hydrocodone/Acetaminophen [Hydrocodone-Acetamin 10-325 mg] 1 - 2 each PO Q6HR PRN #14 tablet PRN Reason: Pain
[2021-08-20] MEDS ORDERED: SODIUM CHLORIDE 0.9% 1,000 ML IV STA (17:43)
[2021-08-20 18:50] VITALS: BP 186/104
== END 2021-08-20 19:05 | disposition home or self-care (01) ==
LOC: ED 15:56
DX: M54.12 Radiculopathy, cervical region (principal); M62.830 Muscle spasm of back; E86.0 Dehydration; R03.0 Elevated blood-pressure reading, without diagnosis of hypertension; F17.200 Nicotine dependence, unspecified, uncomplicated
CPT/HCPCS: 96360; 96372; 99283; 99284; A9270

== ENCOUNTER 2021-08-24 11:28 | Emergency (ER) | payer MEDICAID ==
--- NOTE | 2021-08-24 12:27 | ED Physician Documentation ---
PD HPI NECK PAIN - Stated complaint Stated Complaint: BACK PAIN - Chief complaint Chief Complaint: Back Pain - History obtained from History obtained from: Patient - Additional information Additional information: 46-year-old woman who awoke on August 09 with severe pain in the left side of the neck shoulder and radiating down the left arm. She has a burning pain that also feels like someone is running a car up and down her left arm and doing doughnuts. She is numb in the left arm. She was seen here initially and given symptomatic relief which was modestly helpful. Seen again 3 days ago and diagnosed with dehydration, IV fluids and pushing oral fluids have not been helpful. 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 - Present Medications Home Medications: Ambulatory Orders Medication Instructions Recorded Confirmed Cyclobenzaprine [Flexeril] 10 mg PO TID PRN #20 tablet 08/09/21 08/24/21 HYDROcod/ACETAM 5/325 [[place] 5/325] 1 - 2 tablet PO Q6H PRN #14 tablet 08/09/21 08/24/21 Hydrocodone/Acetaminophen 1 - 2 each PO Q6HR PRN #14 tablet 08/20/21 08/24/21 [Hydrocodone-Acetamin 10-325 mg] Meloxicam [Mobic] 7.5 mg PO BID PRN #20 tablet 08/24/21 Oxycodone HCl/Acetaminophen 1 - 2 each PO Q6H PRN #20 tablet 08/24/21 [Percocet 5-325 mg Tablet] predniSONE [Deltasone] 20 mg PO [id number] #21 tab 08/24/21 - Allergies Allergies/Adverse Reactions: Allergies Allergy/AdvReac Type Severity Reaction Status Date / Time nortriptyline Allergy Unknown Verified 08/24/21 11:49 - Social History Does the pt smoke?: Yes Smoking Status: Current every day smoker Does the pt drink ETOH?: Yes Does the pt have substance abuse?: Yes - Immunizations Immunizations are current?: Yes - POLST Patient has POLST: No PD ED PE NORMAL - Vitals Vital signs reviewed: Yes - General General: Alert and oriented X 3, Other (She appears uncomfortable and is crying) - HEENT HEENT: PERRL, EOMI - Neck Neck: Supple, no meningeal sign, No bony TTP - Cardiac Cardiac: RRR, No murmur - Abdomen Abdomen: Normal bowel sounds, Soft, Non tender - Back Back: No CVA TTP, No spinal TTP - Derm Derm: Normal color, Warm and dry - Extremities Extremities: Other (Is relative numbness on both sides of the left forearm, she is unable to digital content coordinator with the left forearm due to pain. I am unable to assess strength in the left arm due to pain.) - Neuro Neuro: Alert and oriented X 3, Normal speech Results - Vitals Vitals: Vital Signs - 24 hr 08/24/21 08/24/21 11:46 15:21 Temperature 36.4 C L 36.7 C Heart Rate 79 68 Respiratory 22 17 Rate Blood Pressure 196/118 H 170/88 H O2 Saturation 96 100 Oxygen O2 Source Room air - Rads (name of study) MRI [facility] Radiology: Final report received, EMP read contemporaneously PD MEDICAL DECISION MAKING - ED course ED course: C3-C4: Mild bilateral foraminal narrowing. C4-C5: Mild canal narrowing. Moderate L and mild R foraminal stenosis. C5-C6: Minimal canal narrowing. Moderate bilateral foraminal stenosis, with nerve root compression on both sides. C6-C7: Mild canal narrowing. Mild R foraminal stenosis. Moderate L foraminal narrowing with slight nerve root compression. C7-T1: Prominent L paramedian disc osteophyte complex/protrusion. There is L-sided mild to moderate canal narrowing. There is slight mass effect on the L aspect of the cord. There is severe L foraminal stenosis with nerve root compression. Mild R foraminal narrowing. IMPRESSION: Prominent L C7-T1 paramedian disc osteophyte complex/protrusion with associated mass effect on the cord and severe L foraminal stenosis. Case discussed with Dr. Rakesh Panda, on-call spinal surgeon in [place] who did review her images. States this patient probably will need surgery but can follow-up as an outpatient. Patient comfortable with plan. I am prescribing a short course of short-acting opioid pain medication for this patient. I have reviewed the patients REGULATORY AUDITOR and no concerning findings were noted. I have discussed that the opioids are for short term therapy only, and will not be refilled from the ED. Departure - Departure Disposition: 01 Home, Self Care Clinical Impression: Cervical radiculopathy Condition: Good Record reviewed to determine appropriate education?: Yes Instructions: ED Cervical Radiculopathy Follow-Up: RAKESH PANDA MD [Physician No Access] - Prescriptions: predniSONE [Deltasone] 20 mg PO [id number] #21 tab Meloxicam [Mobic] 7.5 mg PO BID PRN #20 tablet PRN Reason: Pain Oxycodone HCl/Acetaminophen [Percocet 5-325 mg Tablet] 1 - 2 each PO Q6H PRN #20 tablet PRN Reason: pain Comments: As discussed, you do definitely have a pinched nerve in your neck. You are likely to need surgery based on my conversation with the spine surgeon doroteo. You should call his office for an appointment. Return for new or worsening symptoms. Prescription sent electronically to [facility] in [place] I am prescribing a short course of narcotic pain medication for you. These are potentially dangerous and addictive medications that should be used carefully. These medications may constipate you. Take an mkhe-vuf-xnufgqg stool softener (docusate) twice daily with plenty of water while taking these medications. If you go 24 hours without a bowel movement, take nucg-[id number] miralax, per package instructions. Do not drink or drive while taking these medications. If you received narcotic or sedating medications while in the emergency department, do not drive for 24 hours. Store this medication in a safe, secure place and out of reach of children. It is a violation of federal law to give or sell this medication to another person or to use in a manner other than prescribed. The ED will not refill narcotic prescriptions, including prescriptions lost or stolen. To dispose of unwanted medications: 1. [facility] [address] in [place] has a medication drop box. They accept prescription medications (in pill form) Monday through Monday 9:00 a.m. to 5:00 p.m. 2. The [facility] accepts prescription medications (in pill form only) for disposal year round. Call for more information. 3. Contact the [facility] for the next [employer] sponsored prescription drug collection event. , [phone], or [phone]; Note that many narcotic pain relievers also contain Tylenol/acetaminophen. Please ensure that your total dose of acetaminophen from all sources does not exceed 3 g (3000 mg) per day.
[2021-08-24] MEDS: DEXAMETHASONE 10 MG/ML VIAL IVP STA (12:42)
[2021-08-24] MEDS: KETOROLAC 30 MG/ML VIAL IVP STA ×2 (12:42→14:29)
--- NOTE | 2021-08-24 14:16 | MRI Report ---
PROCEDURE: Cervical Spine W/O INDICATIONS: intractable cervical radiculopathy TECHNIQUE: Noncontrast sagittal T1 spin echo and T2 fast spin echo, sagittal STIR, foraminal oblique sagittal T2 fast spin echo, and axial gradient echo or T2 fast spin echo through the cervical spine. COMPARISON: None. FINDINGS: Image quality: Excellent Alignment and Curvature: Straightening of the normal lordotic curvature. Bone Marrow: No acute fracture. Multilevel endplate degenerative sclerosis and spurring. Diffuse fa cet arthropathy. Spinal Cord: Visualized spinal cord has normal size and signal. No cerebellar tonsillar herniation. Paraspinous Soft Tissues: No paravertebral masses. Prevertebral soft tissues are normal in thicknes s. C2-C3: Normal in appearance. C3-C4: No canal stenosis. Mild bilateral foraminal narrowing. C4-C5: Mild canal narrowing. Moderate left and mild right foraminal stenosis. C5-C6: Minimal canal narrowing. Moderate bilateral foraminal stenosis, with nerve root compression o n both sides. C6-C7: Mild canal narrowing. Mild right foraminal stenosis. Moderate left foraminal narrowing with s light nerve root compression. C7-T1: Prominent left paramedian disc osteophyte complex/protrusion. There is left-sided mild to mod erate canal narrowing. There is slight mass effect on the left aspect of the cord. There is severe le ft foraminal stenosis with nerve root compression. Mild right foraminal narrowing. IMPRESSION: Prominent left C7-T1 paramedian disc osteophyte complex/protrusion with associated mass effect on the cord and severe left foraminal stenosis. Additional bilateral foraminal stenoses as detailed above by spinal level. Reviewed by: Andres Mcdaniels MD on 08/24/2021 2:15 PM PST Approved by: Andres Mcdaniels MD on 08/24/2021 2:15 PM PST Station ID: [id number]
[2021-08-24] MEDS: ACETAMINOPHEN 325 MG TABLET PO STA (14:29)
[2021-08-24 15:21] VITALS: BP 170/88
== END 2021-08-24 16:35 | disposition home or self-care (01) ==
LOC: ED 11:28
DX: M50.13 Cervical disc disorder with radiculopathy, cervicothoracic region (principal); R20.0 Anesthesia of skin; F17.200 Nicotine dependence, unspecified, uncomplicated
CPT/HCPCS: 72141; 96374; 96375; 99284; A9270

== ENCOUNTER 2021-09-09 09:31 | Outpatient (CLI) | payer MEDICAID ==
--- NOTE | 2021-09-09 10:07 | CT Report ---
PROCEDURE: CERVICAL SPINE WO INDICATIONS: Cervical radiculopathy, herniated cervical disc TECHNIQUE: Noncontrast 3 mm thick sections acquired from the skull base to the T4 level. Sagittal and coronal r eformats were then constructed. For radiation dose reduction, the following was used: automated exp osure control, adjustment of mA and/or kV according to patient size. COMPARISON: 08/24/2021 cervical spine MRI FINDINGS: Normal configuration of the craniocervical junction. Straightening of the usual cervical lordosis wit h otherwise normal alignment. Vertebral body heights maintained. From C3-C4 through C6-C7, there is mild degenerative endplate irregularity related to degenerative di sc disease. There is also some endplate sclerosis and posterior osteophytic ridging of the endplates. No suspicious lytic or blastic osseous lesion. Regional unenhanced soft tissues are within normal limits. Included portions of the lung apices are c lear. At C2-C3, no spinal canal or neural foraminal stenosis. At C3-C4, posterior disc osteophyte complex minimally flattens the ventral thecal sac without mass ef fect upon the cord. Mild bilateral neural foraminal narrowing due to facet and uncovertebral hypertro phy. At C4-C5, posterior disc osteophyte complex flattens the ventral cord. Facet and uncovertebral hypert rophy contribute to mild bilateral neural foraminal narrowing. At C5-C6, posterior discussed by complex flattens the ventral cord. Moderate bilateral neural foramin al narrowing due to facet and uncovertebral hypertrophy. At C6-C7, mild spinal canal stenosis with flattening of the ventral cord due to posterior disc osteop hyte complex. Facet and uncovertebral hypertrophy contribute to moderate bilateral neural foraminal n arrowing. At C7-T1, prominent disc extrusion in the left lateral recess with mild flattening and displacement o f the cord. Severe left neural foraminal narrowing due to the disc extrusion along with some uncovert ebral spurring. Annular component of the disc does not appear to be calcified. IMPRESSION: Multilevel multifactorial degenerative changes similar to 08/24/2021 MRI. Severe neural foraminal stenosis and mild-moderate spinal canal stenosis due to prominent left latera l recess zone disc extrusion with associated osteophytic ridging. Additional lesser degenerative changes at the remaining levels as described above. Reviewed by: Johnie Ferrer MD on 09/09/2021 10:06 AM PST Approved by: Johnie Ferrer MD on 09/09/2021 10:06 AM PST Station ID: [id number]
== END 2021-09-09 09:32 | disposition home or self-care (01) ==
LOC: DI 09:31
PROVIDERS: ATTEND Neurological Surgery
DX: M50.11 Cervical disc disorder with radiculopathy, high cervical region (principal); M48.02 Spinal stenosis, cervical region; M47.22 Other spondylosis with radiculopathy, cervical region; M51.14 Intervertebral disc disorders with radiculopathy, thoracic region

== ENCOUNTER 2021-09-09 09:38 | Outpatient (CLI) | payer MEDICAID ==
--- NOTE | 2021-09-09 10:49 | XRAY Report ---
PROCEDURE: Cervical Spine Complete INDICATIONS: CERVICAL RADICULOPATHY TECHNIQUE: 5 view(s) of the cervical spine were acquired. COMPARISON: Cervical spine MRI dated 08/04/21. FINDINGS: Bones: No fractures or dislocations to the T1 level. The lateral masses of C1 appear intact on the odontoid view. No suspicious bony lesions. Diffuse cervical spondylitic change with multilevel aerographer cornelia disc height loss and anterior osteophyte and uncovertebral joint hypertrophy. No abnormal motion on flexion and extension. Soft tissues: No prevertebral soft tissue swelling. IMPRESSION: Cervical spondylitic change. No abnormal motion on flexion and extension. Reviewed by: Elijah Ch MD on 09/09/2021 10:48 AM RUST Approved by: Elijah Ch MD on 09/09/2021 10:48 AM RUST Station ID: [id number]
== END 2021-09-09 09:39 | disposition home or self-care (01) ==
LOC: DI 09:38
PROVIDERS: ATTEND Neurological Surgery
DX: M47.22 Other spondylosis with radiculopathy, cervical region (principal); M50.11 Cervical disc disorder with radiculopathy, high cervical region; M48.02 Spinal stenosis, cervical region; M51.14 Intervertebral disc disorders with radiculopathy, thoracic region

== ENCOUNTER 2021-11-07 17:54 | Emergency (ER) | payer MEDICAID ==
--- NOTE | 2021-11-07 18:36 | ED Physician Documentation ---
History of Present Illness - Stated complaint Stated Complaint: SOA, S/P SURGERY - Chief complaint Chief Complaint: Resp - History obtained from History obtained from: Patient - History of Present Illness Timing: How many days ago (2) Pain level max: 4 Pain level now: 3 - Additonal information Additional information: 46-year-old female states that she is status post a C7/T1 spinal fusion on October 29 at [facility] in [place]. She states that 2 days ago began having difficulty breathing. She states that she has had swelling in her bilateral ankles up to her mid thigh. Has had issues with fluid retention in the past. Does not have any history of pulmonary emboli or heart failure. Worse with walking, better with rest. 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 : None, Incontinence, Frequency HEENT: None Psych: Depression, Anxiety Musculoskeletal: None Derm: None - Past Surgical History Past Surgical History: Yes /PACKAGE COLLECTOR: section - Present Medications Home Medications: Ambulatory Orders Medication Instructions Recorded Confirmed Cyclobenzaprine [Flexeril] 10 mg PO TID PRN #20 tablet 08/09/21 08/24/21 HYDROcod/ACETAM 5/325 [Sunflower 5/325] 1 - 2 tablet PO Q6H PRN #14 tablet 08/09/21 08/24/21 Hydrocodone/Acetaminophen 1 - 2 each PO Q6HR PRN #14 tablet 08/20/21 08/24/21 [Hydrocodone-Acetamin 10-325 mg] Meloxicam [Mobic] 7.5 mg PO BID PRN #20 tablet 08/24/21 Oxycodone HCl/Acetaminophen 1 - 2 each PO Q6H PRN #20 tablet 08/24/21 [Percocet 5-325 mg Tablet] predniSONE [Deltasone] 20 mg PO [id number] #21 tab 08/24/21 Furosemide [Lasix] 20 mg PO DAILY #7 tablet 11/07/21 - Allergies Allergies/Adverse Reactions: Allergies Allergy/AdvReac Type Severity Reaction Status Date / Time nortriptyline Allergy Unknown Verified 11/07/21 18:10 - Social History Does the pt smoke?: Yes Smoking Status: Current every day smoker Does the pt drink ETOH?: Yes Does the pt have substance abuse?: Yes - Immunizations Immunizations are current?: Yes - POLST Patient has POLST: No PD ED PE NORMAL - Vitals Vital signs reviewed: Yes - General General: Alert and oriented X 3, No acute distress - HEENT HEENT: Moist mucous membranes - Neck Neck: Supple, no meningeal sign - Cardiac Cardiac: RRR, Strong equal pulses - Respiratory Respiratory: No respiratory distress, Clear bilaterally - Abdomen Abdomen: Soft, Non tender, Non distended - Derm Derm: Warm and dry - Extremities Extremities: Other (1+ BLE pitting edema) - Neuro Neuro: Alert and oriented X 3 - Psych Psych: Normal mood, Normal affect Results - Vitals Vitals: Vital Signs - 24 hr 11/07/21 11/07/21 11/07/21 18:03 18:15 18:50 Temperature 36.4 C L Heart Rate 59 L 64 61 Respiratory 24 18 18 Rate Blood Pressure 158/96 H 149/98 H 149/90 H O2 Saturation 97 98 94 11/07/21 20:21 Temperature Heart Rate 63 Respiratory 16 Rate Blood Pressure 165/100 H O2 Saturation 95 Oxygen O2 Source Room air - EKG (time done) 1852 Rate: Rate (enter#) (59) Rhythm: NSR Intervals: 1st degree AVB, Wide QRS, LBBB Ischemia: Non specific changes - Labs Labs: Laboratory Tests 11/07/21 11/07/21 11/07/21 18:48 18:48 18:48 WBC 8.2 RBC 3.89 L Hgb 12.0 Hct 37.6 MCV 96.7 MCH 30.8 MCHC 31.9 L RDW 13.2 Plt Count 197 MPV 11.8 H Neut # (Auto) 5.0 Lymph # (Auto) 1.8 [place] # (Auto) 0.7 Eos # (Auto) 0.6 Baso # (Auto) 0.0 Absolute Nucleated RBC 0.00 Nucleated RBC % 0.0 Sodium 138 Potassium 3.7 Chloride 98 L Carbon Dioxide 32 Anion Gap 8.0 BUN 14 Creatinine 0.8 Estimated GFR (MDRD) 77 L Glucose 94 Calcium 8.5 Total Bilirubin 1.0 AST 69 H ALT 76 H Alkaline Phosphatase 102 Troponin I High Sens 4.7 Total Protein 6.2 L Albumin 3.6 Globulin 2.6 Albumin/Globulin Ratio 1.4 - Rads (name of study) CT pulmonary angiogram Radiology: Final report received, EMP read contemporaneously, See rad report (No pulmonary embolism. No acute abnormality.) PD MEDICAL DECISION MAKING - ED course Complexity details: reviewed results, re-evaluated patient, considered differential, d/w patient ED course: Patient is a 46-year-old female with dyspnea about 1 week status post C7-T1 fusion. She does have peripheral edema. No pulmonary edema. No pulmonary embolism. No significant lab abnormalities. We will start her on a diuretic for home and see if this improves her symptoms. Patient is well-appearing, nontoxic. Afebrile. No hypoxia. No respiratory distress. Patient counseled regarding signs and symptoms for which I believe and urgent re-evaluation would be necessary. Patient with good understanding of and agreement to plan and is comfortable going home at this time This document was made in part using voice recognition software. While efforts are made to proofread this document, sound alike and grammatical errors may occur. Departure - Departure Disposition: 01 Home, Self Care Clinical Impression: Peripheral edema Dyspnea Qualifiers: Dyspnea type: unspecified Qualified Code(s): R06.00 - Dyspnea, unspecified Condition: Good Instructions: ED Dyspnea Shortness of Breath Follow-Up: RAKESH CORONA MD [Physician No Access] - Within 1 week Prescriptions: Furosemide [Lasix] 20 mg PO DAILY #7 tablet Comments: We will place you on a diuretic to help with the fluid retention for the next week. Your CT scan does not show any acute abnormalities tonight. There is no evidence of pulmonary embolism. Continue your current medications at home. You were given a dose of Lasix tonight, you can start the remainder of the pills tomorrow. They were sent to [facility] in [place]. Return if you worsen.
[2021-11-07] MEDS ORDERED: IOVERSOL 320 100 ML VIAL IVP ONE ×2 (18:43→20:21)
[2021-11-07 19:20] LABS: BASOPHILS % (AUTO) 0.5 %; EOSINOPHILS # (AUTO) 0.6 10^3/uL (0.0-0.7); EOSINOPHILS % (AUTO) 7.6 %; HCT - HEMATOCRIT 37.6 % (37.0-47.0); LYMPHOCYTES # (AUTO) 1.8 10^3/uL (1.5-3.5); LYMPHOCYTES % (AUTO) 22.2 %; MEAN CORPUSCULAR HEMOGLOBIN 30.8 pg (27.0-31.0); MEAN CORPUSCULAR HGB CONC 31.9 g/dL (32.0-36.0); MEAN CORPUSCULAR VOLUME 96.7 fL (81.0-99.0); MEAN PLATELET VOLUME 11.8 fL (7.9-10.8); MONOCYTES # (AUTO) 0.7 10^3/uL (0.0-1.0); MONOCYTES % (AUTO) 8.5 %; NEUTROPHILS % (AUTO) 60.7 %; PLT - PLATELET COUNT 197 10^3/uL (130-450); RED BLOOD COUNT 3.89 10^6/uL (4.20-5.40); RED CELL DISTRIBUTION WIDTH 13.2 % (12.0-15.0); WHITE BLOOD COUNT 8.2 x10^3/uL (4.8-10.8)
[2021-11-07 19:40] LABS: ALBUMIN 3.6 g/dL (3.2-5.5); ALBUMIN/GLOBULIN RATIO 1.4 (1.0-2.2); CALCIUM 8.5 mg/dL (8.5-10.3); CREATININE 0.8 mg/dL (0.4-1.0); POTASSIUM 3.7 mmol/L (3.5-5.0); TOTAL PROTEIN 6.2 g/dL (6.7-8.2)
[2021-11-07 20:22] VITALS: BP 165/100
[2021-11-07] MEDS ORDERED: oxyCODONE 5 MG TABLET PO STA (20:30)
[2021-11-07] MEDS ORDERED: FUROSEMIDE 20 MG/2 ML VIAL IVP STA (20:31)
--- NOTE | 2021-11-07 20:40 | CT Report ---
PROCEDURE: ANGIO CHEST W/WO INDICATIONS: dyspnea s/p spine surgery CONTRAST: IV CONTRAST: Optiray 320 ml: 100 PO CONTRAST: *NO PO CONTRAST TECHNIQUE: After the administration of intravenous contrast, 2 mm axial images were acquired from the pulmonary apices to the posterior costophrenic angles during the arterial phase. In addition, 1 mm lung kernel and 5 mm soft tissue kernel reconstructions were performed. 3-dimensional coronal oblique maximum int ensity projection (MIP) reformats, 8 mm axial MIP, and 5 mm coronal and sagittal MPR reformats were t hen performed through the thorax. For radiation dose reduction, the following was used: automated exp osure control, adjustment of mA and/or kV according to patient size. COMPARISON: None FINDINGS: Image quality: Excellent. Pulmonary arteries: Pulmonary arteries are normal in size, and demonstrate no intraluminal filling d efects to suggest central pulmonary embolism. Lungs and pleura: Lungs are clear. No pleural effusions or pneumothorax. Central and peripheral ai rways are patent. Mediastinum: Heart size is normal, without pericardial effusion. No mediastinal or hilar adenopathy . Thoracic aorta is normal in caliber and enhancement. Esophagus is normal in caliber, without hiat al hernia. There is subtle soft tissue swelling in the neck consistent with recent ACDF. Bones and chest wall: No suspicious bony lesions. Ribs and thoracic spine appear intact throughout. No axillary or supraclavicular adenopathy. The thyroid is normal in size and there are no incident al findings. Abdomen: Visualized upper abdominal solid organs appear normal in the early arterial phase of enhanc ement. IMPRESSION: No pulmonary embolism. Reviewed by: Jay Severino on 11/07/2021 8:39 PM PST Approved by: Jay Severino on 11/07/2021 8:39 PM PST Station ID: [id number]
== END 2021-11-07 21:10 | disposition home or self-care (01) ==
LOC: ED 17:54
DX: R60.0 Localized edema (principal); R06.02 Shortness of breath; Z98.1 Arthrodesis status; I44.0 Atrioventricular block, first degree; I44.7 Left bundle-branch block, unspecified; F17.200 Nicotine dependence, unspecified, uncomplicated
CPT/HCPCS: 36415; 71275; 80053; 84484; 85025; 93005; 96374; 99283; 99284; A9270; Q9967

== ENCOUNTER 2021-11-09 14:46 | Emergency (ER) | payer MEDICAID ==
[2021-11-09] MEDS ORDERED: SODIUM CHLORIDE 0.9% 1,000 ML IV STA (15:21)
[2021-11-09] MEDS ORDERED: LORazepam 2 MG/ML VIAL IVP STA (15:21)
--- NOTE | 2021-11-09 15:28 | ED Physician Documentation ---
PD HPI DYSPNEA - Stated complaint Stated Complaint: SOA - Chief complaint Chief Complaint: Resp - History obtained from History obtained from: Patient - History of Present Illness Timing - onset: How many days ago (5) Timing - onset during: Rest Timing - duration: Days (5) Timing - details: Gradual onset, Still present Inciting event(s): Other (post surgery appeared to have fluid retention) Improved by: Lasix Worsened by: No: Exertion, Laying flat Associated symptoms: No: Fever, Cough, Hemoptysis, Wheezing, Chest pain / discomfort Similar symptoms before: Diagnosis (fluid retention) Recently seen: Emergency Dept - Additional information Additional information: 46-year-old female had her cervical spine fusion done on the of last month. She developed acute shortness of breath and was seen in the emergency department evaluated by Dr. Padilla 2 days ago. In that visit she was acutely short of breath a CT angio of the chest was performed and she did appear to have some fluid retention and she was placed on Lasix. She felt that these medicine helped with her shortness of breath. Today she has persistence of shortness of breath and returns to the emergency department for further evaluation. She has taken 2 doses of Lasix. She does have a history of anxiety and panic attacks. She believes that the fluid retention is now resolved. Review of Systems Constitutional: denies: Fever Eyes: denies: Photophobia Ears: denies: Ear pain Nose: denies: Rhinorrhea / runny nose, Congestion Throat: denies: Sore throat Cardiac: denies: Chest pain / pressure, Palpitations Respiratory: reports: Dyspnea. denies: Cough, Wheezing GI: denies: Abdominal Pain, Nausea, Vomiting : denies: Dysuria, Frequency Skin: denies: Rash Musculoskeletal: reports: Neck pain. 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 ATTENDANT: section - Present Medications Home Medications: Ambulatory Orders Medication Instructions Recorded Confirmed Cyclobenzaprine [Flexeril] 10 mg PO TID PRN #20 tablet 08/09/21 08/24/21 HYDROcod/ACETAM 5/325 [Roland 5/325] 1 - 2 tablet PO Q6H PRN #14 tablet 08/09/21 08/24/21 Hydrocodone/Acetaminophen 1 - 2 each PO Q6HR PRN #14 tablet 08/20/21 08/24/21 [Hydrocodone-Acetamin 10-325 mg] Meloxicam [Mobic] 7.5 mg PO BID PRN #20 tablet 08/24/21 Oxycodone HCl/Acetaminophen 1 - 2 each PO Q6H PRN #20 tablet 08/24/21 [Percocet 5-325 mg Tablet] predniSONE [Deltasone] 20 mg PO [id number] #21 tab 08/24/21 Furosemide [Lasix] 20 mg PO DAILY #7 tablet 11/07/21 LORazepam [Ativan] 1 mg PO Q6H PRN #14 tablet 11/09/21 - Allergies Allergies/Adverse Reactions: Allergies Allergy/AdvReac Type Severity Reaction Status Date / Time nortriptyline Allergy Unknown Verified 11/09/21 15:00 - Social History Does the pt smoke?: Yes Smoking Status: Current every day smoker Does the pt drink ETOH?: Yes Does the pt have substance abuse?: Yes - Immunizations Immunizations are current?: Yes - POLST Patient has POLST: No PD ED PE NORMAL - Vitals Vital signs reviewed: Yes (tachypneic) - General General: Alert and oriented X 3, Well developed/nourished, Other (appears anxious and is teary eyed. 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, No motor deficit, No sensory deficit, Normal speech Eye Opening: Spontaneous Motor: Obeys Commands Verbal: Oriented GCS Score: 15 Results - Vitals Vitals: Vital Signs - 24 hr 11/09/21 11/09/21 15:00 17:04 Temperature 36.6 C 36.6 C Heart Rate 54 L 55 L Respiratory 28 H 12 Rate Blood Pressure 120/71 161/101 H O2 Saturation 97 96 Oxygen O2 Source Room air - Labs Labs: Laboratory Tests 11/09/21 11/09/21 11/09/21 15:40 15:40 15:40 WBC 8.0 RBC 4.40 Hgb 13.8 Hct 41.2 MCV 93.6 MCH 31.4 H MCHC 33.5 RDW 13.2 Plt Count 237 MPV 11.3 H Neut # (Auto) 4.9 Lymph # (Auto) 1.9 [place] # (Auto) 0.7 Eos # (Auto) 0.5 Baso # (Auto) 0.0 Absolute Nucleated RBC 0.00 Nucleated RBC % 0.0 Sodium 133 L Potassium 3.2 L Chloride 98 L Carbon Dioxide 26 Anion Gap 9.0 BUN 11 Creatinine 0.7 Estimated GFR (MDRD) 89 Glucose 98 Calcium 9.0 Total Bilirubin 0.6 AST 110 H ALT 138 H Alkaline Phosphatase 105 Troponin I High Sens B-Natriuretic Peptide 98 Total Protein 6.7 Albumin 3.7 Globulin 3.0 Albumin/Globulin Ratio 1.2 Lipase 26 Urine Color Urine Clarity Urine pH Ur Specific [place] Urine Protein Urine Glucose (UA) Urine Ketones Urine Occult Blood Urine Nitrite Urine Bilirubin Urine Urobilinogen Ur Leukocyte Esterase Ur Microscopic Review Urine Culture Comments Urine HCG, Qual Nasal Adenovirus (PCR) Nasal B. parapertussis DNA (PCR) Nasal Coronavir 229E PCR Nasal Coronavir HKU1 PCR Nasal Coronavir NL63 PCR Nasal Coronavir OC43 PCR Nasal Enterovir/Rhinovir PCR Nasal Influenza B PCR Nasal Influenza A PCR Nasal Parainfluen 1 PCR Nasal Parainfluen 2 PCR Nasal Parainfluen 3 PCR Nasal Parainfluen 4 PCR Nasal RSV (PCR) Nasal B.pertussis DNA PCR Nasal C.pneumoniae (PCR) Tommy Human Metapneumo PCR Nasal M.pneumoniae (PCR) Nasal SARS-CoV-2 (PCR) 11/09/21 11/09/21 11/09/21 15:40 15:40 16:18 WBC RBC Hgb Hct MCV MCH MCHC RDW Plt Count MPV Neut # (Auto) Lymph # (Auto) [place] # (Auto) Eos # (Auto) Baso # (Auto) Absolute Nucleated RBC Nucleated RBC % Sodium Potassium Chloride Carbon Dioxide Anion Gap BUN Creatinine Estimated GFR (MDRD) Glucose Calcium Total Bilirubin AST ALT Alkaline Phosphatase Troponin I High Sens 4.2 B-Natriuretic Peptide Total Protein Albumin Globulin Albumin/Globulin Ratio Lipase Urine Color YELLOW Urine Clarity CLEAR Urine pH 7.0 Ur Specific [place] 1.010 Urine Protein NEGATIVE Urine Glucose (UA) NEGATIVE Urine Ketones NEGATIVE Urine Occult Blood NEGATIVE Urine Nitrite NEGATIVE Urine Bilirubin NEGATIVE Urine Urobilinogen 1 (NORMAL) Ur Leukocyte Esterase NEGATIVE Ur Microscopic Review NOT INDICATED Urine Culture Comments NOT INDICATED Urine HCG, Qual NEGATIVE Nasal Adenovirus (PCR) NOT DETECTED Nasal B. parapertussis DNA (PCR) NOT DETECTED Nasal Coronavir 229E PCR NOT DETECTED Nasal Coronavir HKU1 PCR NOT DETECTED Nasal Coronavir NL63 PCR NOT DETECTED Nasal Coronavir OC43 PCR NOT DETECTED Nasal Enterovir/Rhinovir PCR NOT DETECTED Nasal Influenza B PCR NOT DETECTED Nasal Influenza A PCR NOT DETECTED Nasal Parainfluen 1 PCR NOT DETECTED Nasal Parainfluen 2 PCR NOT DETECTED Nasal Parainfluen 3 PCR NOT DETECTED Nasal Parainfluen 4 PCR NOT DETECTED Nasal RSV (PCR) NOT DETECTED Nasal B.pertussis DNA PCR NOT DETECTED Nasal C.pneumoniae (PCR) NOT DETECTED Tommy Human Metapneumo PCR NOT DETECTED Nasal M.pneumoniae (PCR) NOT DETECTED Nasal SARS-CoV-2 (PCR) NOT DETECTED - Rads (name of study) chest Radiology: Prelim report reviewed (Impression: No acute cardiopulmonary pathology.), EMP read indepedently, See rad report Procedures - IVC sono (time) 1520 Bedside IVC sono: IVC measures (cm) (1.3), IVC collapsed c insp (cm) (complete), Dehydration (est <1 liter deficit) PD MEDICAL DECISION MAKING - ED course Complexity details: reviewed old records, reviewed results, re-evaluated patient, considered differential, d/w patient ED course: 46-year-old female presents to the emergency department acutely short of breath and she has recently been evaluated for pulmonary embolism congestive failure and lung disease. There were no specific findings on prior evaluation. She did take medication for fluid retention and she felt that this seemed to help. Today she is again short of breath and we do not find any evidence of fluid retention in fact today her IVC is collapsing and she is administered some fluid. She has a clear chest x-ray and normal BNP and troponin. She is short of breath just talking and she is administered Ativan with marked improvement. I suspect the patient is having some issue with anxiety and she is as well. We did find one abnormality to her physical testing in the form of elevated LFTs. These were mildly elevated and they are elevated more today than they were 2 days ago. I will provide for the patient some Ativan for treatment of anxiety and she will need a follow-up for her LFTs. Departure - Departure Disposition: 01 Home, Self Care Clinical Impression: Anxiety about health Dyspnea Qualifiers: Dyspnea type: shortness of breath Qualified Code(s): R06.02 - Shortness of breath; R06.00 - Dyspnea, unspecified; R06.01 - Orthopnea Condition: Stable Instructions: ED Dyspnea Shortness of Breath, ED Panic Attack Follow-Up: Maria Elena Hooker ARNP [Primary Care Provider] - Prescriptions: LORazepam [Ativan] 1 mg PO Q6H PRN #14 tablet PRN Reason: Anxiety Comments: Madyson, today we did not find any abnormality to your lungs or your heart. It did appear that you are anxious and the antianxiety medicine helped. I have prescribed some Ativan for you to take on as-needed basis and this is been E scribed to [facility] in [place]. We did have one finding today with some elevated liver functions and they were slightly elevated and will require a repeat blood draw sometime in the next month.
[2021-11-09 15:49] LABS: BASOPHILS % (AUTO) 0.5 %; EOSINOPHILS # (AUTO) 0.5 10^3/uL (0.0-0.7); EOSINOPHILS % (AUTO) 5.7 %; HCT - HEMATOCRIT 41.2 % (37.0-47.0); HGB - HEMOGLOBIN 13.8 g/dL (12.0-16.0); LYMPHOCYTES # (AUTO) 1.9 10^3/uL (1.5-3.5); LYMPHOCYTES % (AUTO) 23.5 %; MEAN CORPUSCULAR HEMOGLOBIN 31.4 pg (27.0-31.0); MEAN CORPUSCULAR HGB CONC 33.5 g/dL (32.0-36.0); MEAN CORPUSCULAR VOLUME 93.6 fL (81.0-99.0); MEAN PLATELET VOLUME 11.3 fL (7.9-10.8); MONOCYTES # (AUTO) 0.7 10^3/uL (0.0-1.0); MONOCYTES % (AUTO) 8.7 %; NEUTROPHILS # (AUTO) 4.9 10^3/uL (1.5-6.6); NEUTROPHILS % (AUTO) 61.2 %; PLT - PLATELET COUNT 237 10^3/uL (130-450); RED CELL DISTRIBUTION WIDTH 13.2 % (12.0-15.0)
[2021-11-09 15:52] LABS: BILIRUBIN,URINE NEGATIVE (NEGATIVE); GLUCOSE, URINE (UA) NEGATIVE (NEGATIVE); KETONES,URINE (UA) NEGATIVE (NEGATIVE); LEUKOCYTE ESTERASE, URINE NEGATIVE (NEGATIVE); NITRITE,URINE NEGATIVE (NEGATIVE); OCCULT BLOOD,URINE NEGATIVE (NEGATIVE); PROTEIN,URINE NEGATIVE (NEGATIVE); UROBILINOGEN,URINE 1 (NORMAL) E.U./dL (NORMAL)
[2021-11-09 15:59] LABS: ALBUMIN 3.7 g/dL (3.2-5.5); ALBUMIN/GLOBULIN RATIO 1.2 (1.0-2.2); BILIRUBIN,TOTAL 0.6 mg/dL (0.2-1.0); CREATININE 0.7 mg/dL (0.4-1.0); POTASSIUM 3.2 mmol/L (3.5-5.0); TOTAL PROTEIN 6.7 g/dL (6.7-8.2)
--- NOTE | 2021-11-09 16:05 | XRAY Report ---
PROCEDURE: Chest 1 View X-Ray INDICATIONS: chest pain TECHNIQUE: One view of the chest was acquired. COMPARISON: 08/09/2021 FINDINGS: Surgical changes and devices: Fusion hardware in lower cervical spine is seen.. Lungs and pleura: No pleural effusions or pneumothorax. Lungs are clear. Mediastinum: Mediastinal contours appear normal. Heart size is normal. Bones and chest wall: No suspicious bony lesions. Overlying soft tissues appear unremarkable. IMPRESSION: No acute cardiopulmonary pathology. Reviewed by: Yvan Sunshine MD on 11/09/2021 4:04 PM PST Approved by: Yvan Sunshine MD on 11/09/2021 4:04 PM PST Station ID: [id number]
[2021-11-09 16:13] LABS: CLARITY,URINE CLEAR (CLEAR); HCG UR QUAL NEGATIVE
[2021-11-09 17:07] VITALS: BP 161/101
[2021-11-09 17:15] LABS: B. PARAPERTUSSIS- RESP PCR PAN NOT DETECTED; B. PERTUSSIS- RESP PCR PANEL NOT DETECTED; C. PNEUMONIAE- RESP PCR PANEL NOT DETECTED; CORONAVIRUS 229E-RESP PCR NOT DETECTED; CORONAVIRUS HKU1-RESP PCR NOT DETECTED; CORONAVIRUS NL63-RESP PCR NOT DETECTED; CORONAVIRUS OC43-RESP PCR NOT DETECTED; HUMAN METAPNEUMOVIRUS NOT DETECTED; INFLUENZA A- RESP PCR PANEL NOT DETECTED; INFLUENZA B - RESP PCR PANEL NOT DETECTED; M. PNEUMONIAE- RESP PCR PANEL NOT DETECTED; PARAINFLUENZA VIRUS 1 NOT DETECTED; PARAINFLUENZA VIRUS 2 NOT DETECTED; PARAINFLUENZA VIRUS 3 NOT DETECTED; PARAINFLUENZA VIRUS 4 NOT DETECTED; RHINOVIRUS/ENTEROVIRUS NOT DETECTED; RSV- RESP PCR PANEL NOT DETECTED; SARS-CoV-2 -RESP PCR PANEL NOT DETECTED
== END 2021-11-09 17:54 | disposition home or self-care (01) ==
LOC: ED 14:46
DX: E86.0 Dehydration (principal); F41.1 Generalized anxiety disorder; R06.01 Orthopnea
CPT/HCPCS: 0202U; 36415; 71045; 80053; 81003; 81025; 83690; 83880; 84484; 85025; 96374; 99284; J2060; 81001; 87086

== ENCOUNTER 2021-12-09 14:10 | Outpatient (CLI) | payer MEDICAID ==
--- NOTE | 2021-12-09 16:54 | XRAY Report ---
PROCEDURE: Cervical Spine 2 View INDICATIONS: STATUS POST CERVICAL SPINE FUSION TECHNIQUE: 4 view(s) of the cervical spine were acquired. COMPARISON: 09/09/2021. FINDINGS: Bones: Patient is status post interval anterior fusion at C7-T1 level. No fractures or dislocations t o the C7-T1 level. Straightening of normal cervical lordosis is seen. Degenerative endplate changes and loss of disc height throughout cervical spine is seen. The lateral masses of C1 appear intact on the odontoid view. No suspicious bony lesions. Soft tissues: No prevertebral soft tissue swelling. IMPRESSION: Post ACDF changes at C7-T1 level. No gross hardware complication. No acute fracture or d islocation. Degenerative disc disease throughout cervical spine. Reviewed by: Yvan Sunshine MD on 12/09/2021 4:53 PM PST Approved by: Yvan Sunshine MD on 12/09/2021 4:53 PM PST Station ID: [id number]
== END 2021-12-09 14:11 | disposition home or self-care (01) ==
LOC: DI.S 14:10
PROVIDERS: ATTEND Nurse Practitioner Adult Health
DX: Z98.1 Arthrodesis status (principal); M50.33 Other cervical disc degeneration, cervicothoracic region

== ENCOUNTER 2022-01-18 09:42 | Outpatient (CLI) | payer MEDICAID ==
[2022-01-18] MEDS ORDERED: IOVERSOL 320 100 ML VIAL IVP ONE ×2 (10:11→10:33)
[2022-01-18 10:16] LABS: CREATININE 0.8 mg/dL (0.4-1.0)
--- NOTE | 2022-01-18 12:24 | CT Report ---
PROCEDURE: ANGIO CHEST W/WO INDICATIONS: DYSPNEA,ATAXIA, VERTIGO CONTRAST: IV CONTRAST: Optiray 320 ml: 80 PO CONTRAST: *NO PO CONTRAST TECHNIQUE: After the administration of intravenous contrast, 2 mm axial images were acquired from the pulmonary apices to the posterior costophrenic angles during the arterial phase. In addition, 1 mm lung kernel and 5 mm soft tissue kernel reconstructions were performed. For radiation dose reduction, the followi ng was used: automated exposure control, adjustment of mA and/or kV according to patient size. COMPARISON: 11/07/2021 FINDINGS: Image quality: Excellent. Pulmonary arteries: Pulmonary arteries are normal in size, and demonstrate no intraluminal filling d efects to suggest central pulmonary embolism. Lungs and pleura: Lungs are clear. No pleural effusions or pneumothorax. Central and peripheral ai rways are patent. Mediastinum: Heart size is enlarged, without pericardial effusion. No mediastinal or hilar adenopat hy. Thoracic aorta is normal in caliber and enhancement. Esophagus is normal in caliber, without hi atal hernia. Bones and chest wall: No suspicious bony lesions. Ribs and thoracic spine appear intact throughout. No axillary or supraclavicular adenopathy. The thyroid is normal in size and there are no incident al findings. Abdomen: Visualized upper abdominal solid organs appear normal in the early arterial phase of enhanc ement. IMPRESSION: Cardiomegaly without pulmonary embolism, aortic dissection or aneurysm Reviewed by: Simone Pastrana MD on 01/18/2022 11:22 AM SEB Approved by: Simone Pastrana MD on 01/18/2022 11:22 AM AKADALBERTO Station ID: [id number]
--- NOTE | 2022-01-18 15:14 | MRI Report ---
PROCEDURE: MRI brain without contrast INDICATIONS: DYSPNEA,ATAXIA, VERTIGO TECHNIQUE: Noncontrast axial T1 spin echo, axial T2 fast spin echo, sagittal and axial FLAIR, coronal T2 fast sp in echo, axial gradient echo, axial diffusion and ADC through the brain. COMPARISON: None. FINDINGS: Image quality: Excellent. CSF Spaces: Basal cisterns are patent. No extra-axial fluid collections. Ventricles are normal in size and shape. Brain: No intracranial masses or hemorrhage. Hercules/white matter interface is normal. Brainstem appe ars normal. Diffusion-weighted images demonstrate no acute infarct. Normal intravascular flow voids are present. Skull and face: Calvarium has normal marrow signal. Orbits appear normal. Sinuses: Sinuses and mastoids are clear. IMPRESSION: Normal MRI of the brain Reviewed by: Simone Pastrana MD on 01/18/2022 2:13 PM AKADALBERTO Approved by: Simone Pastrana MD on 01/18/2022 2:13 PM AKADALBERTO Station ID: [id number]
== END 2022-01-18 09:43 | disposition home or self-care (01) ==
LOC: DI 09:42
PROVIDERS: ATTEND Neurological Surgery
DX: Z01.812 Encounter for preprocedural laboratory examination (principal); Z98.1 Arthrodesis status; I51.7 Cardiomegaly; R27.0 Ataxia, unspecified; R47.1 Dysarthria and anarthria; R13.10 Dysphagia, unspecified; R42 Dizziness and giddiness; R06.00 Dyspnea, unspecified
CPT/HCPCS: 36415; 70551; 71275; 82565; Q9967

== ENCOUNTER 2022-01-18 16:03 | Outpatient (CLI) | payer MEDICAID ==
--- NOTE | 2022-01-18 16:18 | XRAY Report ---
PROCEDURE: Chest 2 View X-Ray INDICATIONS: Dyspnea TECHNIQUE: 2 view(s) of the chest. COMPARISON: None. FINDINGS: Surgical changes and devices: Cervical ACDF hardware. Lungs and pleura: No pleural effusions or pneumothorax. Lungs are clear. Mediastinum: Mediastinal contours are normal. Heart size is normal. Bones and chest wall: No suspicious bony abnormalities. Soft tissues appear unremarkable. IMPRESSION: No acute cardiopulmonary process demonstrated radiographically. Reviewed by: Johnie Ferrer MD on 01/18/2022 4:17 PM PDT Approved by: Johnie Ferrer MD on 01/18/2022 4:17 PM PDT Station ID: [id number]
== END 2022-01-18 16:04 | disposition home or self-care (01) ==
LOC: DI.S 16:03
PROVIDERS: ATTEND Neurological Surgery
DX: R06.00 Dyspnea, unspecified (principal); R27.0 Ataxia, unspecified; R42 Dizziness and giddiness; R47.1 Dysarthria and anarthria; R13.10 Dysphagia, unspecified; Z98.1 Arthrodesis status

== ENCOUNTER 2022-02-07 13:31 | Outpatient (CLI) | payer MEDICAID ==
--- NOTE | 2022-02-07 15:36 | XRAY Report ---
PROCEDURE: Cervical Spine 2 View INDICATIONS: STATUS POST CERVICAL FUSION TECHNIQUE: 7 view(s) of the cervical spine were acquired. COMPARISON: December 09, 2021. FINDINGS: C-SPINE: No acute, displaced fracture. Straightening, which may be due to spasm or position. The vert ebral body heights are maintained. Mild endplate osteophytosis and disc height loss most prominent at C5-C7. Discectomy and anterior cervical fixation and C7-T1. No abnormal subluxation with flexion or extension. SOFT TISSUES: No prevertebral soft tissue thickening. IMPRESSION: 1.No acute osseous abnormality of the cervical spine. Reviewed by: Gasper Underwood MD on 02/07/2022 3:35 PM PDT Approved by: Gasper Underwood MD on 02/07/2022 3:35 PM PDT Station ID: [id number]
== END 2022-02-07 13:32 | disposition home or self-care (01) ==
LOC: DI.S 13:31
PROVIDERS: ATTEND Neurological Surgery
DX: Z98.1 Arthrodesis status (principal)

== ENCOUNTER 2022-02-15 14:41 | Outpatient (CLI) | payer MEDICAID | END 2022-02-15 14:42 | disposition home or self-care (01) | LOC: RT 14:41 | PROVIDERS: ATTEND Registered Nurse | DX: R06.09 Other forms of dyspnea (principal) | CPT/HCPCS: 94060; 94729 ==

== ENCOUNTER 2022-03-29 11:54 | Outpatient (CLI) | payer MEDICAID ==
[2022-03-29 14:09] LABS: BASOPHILS # (AUTO) 0.1 10^3/uL (0.0-0.1); BASOPHILS % (AUTO) 0.9 %; EOSINOPHILS # (AUTO) 0.7 10^3/uL (0.0-0.7); EOSINOPHILS % (AUTO) 8.1 %; HCT - HEMATOCRIT 44.7 % (37.0-47.0); HGB - HEMOGLOBIN 14.5 g/dL (12.0-16.0); LYMPHOCYTES # (AUTO) 2.6 10^3/uL (1.5-3.5); LYMPHOCYTES % (AUTO) 31.5 %; MEAN CORPUSCULAR HEMOGLOBIN 30.3 pg (27.0-31.0); MEAN CORPUSCULAR HGB CONC 32.4 g/dL (32.0-36.0); MEAN CORPUSCULAR VOLUME 93.3 fL (81.0-99.0); MEAN PLATELET VOLUME 12.7 fL (7.9-10.8); MONOCYTES # (AUTO) 0.6 10^3/uL (0.0-1.0); NEUTROPHILS # (AUTO) 4.2 10^3/uL (1.5-6.6); NEUTROPHILS % (AUTO) 52.3 %; PLT - PLATELET COUNT 166 10^3/uL (130-450); RED BLOOD COUNT 4.79 10^6/uL (4.20-5.40); RED CELL DISTRIBUTION WIDTH 13.5 % (12.0-15.0); WHITE BLOOD COUNT 8.1 x10^3/uL (4.8-10.8)
[2022-03-29 14:19] LABS: CALCIUM 8.9 mg/dL (8.5-10.3); CREATININE 0.9 mg/dL (0.4-1.0); POTASSIUM 3.7 mmol/L (3.5-5.0)
== END 2022-03-29 11:55 | disposition home or self-care (01) ==
LOC: LAB.S 11:54
PROVIDERS: ATTEND Registered Nurse
DX: R60.9 Edema, unspecified (principal)
CPT/HCPCS: 36415; 80048; 85025

== ENCOUNTER 2022-06-03 08:13 | Outpatient (CLI) | payer MEDICAID ==
[2022-06-03 14:48] LABS: BASOPHILS % (AUTO) 0.6 %; EOSINOPHILS # (AUTO) 0.2 10^3/uL (0.0-0.7); EOSINOPHILS % (AUTO) 4.9 %; HCT - HEMATOCRIT 39.1 % (37.0-47.0); HGB - HEMOGLOBIN 12.6 g/dL (12.0-16.0); LYMPHOCYTES % (AUTO) 40.6 %; MEAN CORPUSCULAR HEMOGLOBIN 30.9 pg (27.0-31.0); MEAN CORPUSCULAR HGB CONC 32.2 g/dL (32.0-36.0); MEAN CORPUSCULAR VOLUME 95.8 fL (81.0-99.0); MEAN PLATELET VOLUME 12.4 fL (7.9-10.8); MONOCYTES # (AUTO) 0.5 10^3/uL (0.0-1.0); MONOCYTES % (AUTO) 10.5 %; NEUTROPHILS # (AUTO) 2.1 10^3/uL (1.5-6.6); NEUTROPHILS % (AUTO) 43.2 %; PLT - PLATELET COUNT 138 10^3/uL (130-450); RED BLOOD COUNT 4.08 10^6/uL (4.20-5.40); RED CELL DISTRIBUTION WIDTH 13.5 % (12.0-15.0); WHITE BLOOD COUNT 4.9 x10^3/uL (4.8-10.8)
[2022-06-03 15:43] LABS: ALBUMIN 4.2 g/dL (3.2-5.5); ALBUMIN/GLOBULIN RATIO 1.7 (1.0-2.2); ALKALINE PHOSPHATASE 54 IU/L (42-121); ALT ALANINE AMINOTRANSFERASE 15 IU/L (10-60); AST ASPARTATE AMINOTRANSFERASE 21 IU/L (10-42); BILIRUBIN,TOTAL 0.7 mg/dL (0.2-1.0); BUN - BLOOD UREA NITROGEN 8 mg/dL (6-20); CALCIUM 9.1 mg/dL (8.5-10.3); CARBON DIOXIDE - CO2 32 mmol/L (21-32); CHLORIDE 99 mmol/L (101-111); CHOL/HDL RATIO 5.9 (<4.4); CHOLESTEROL 224 mg/dL; CREATININE 0.9 mg/dL (0.4-1.0); GFR - MDRD 67 (>89); GLUCOSE 92 mg/dL (70-100); HDL CHOLESTEROL 38 mg/dL; LDL CHOLESTEROL,CALCULATED 141 mg/dL; LDL/HDL RATIO 3.7 (<4.4); POTASSIUM 3.4 mmol/L (3.5-5.0); SODIUM 137 mmol/L (135-145); TOTAL PROTEIN 6.7 g/dL (6.7-8.2); TRIGLYCERIDES 224 mg/dL; VLDL CHOLESTEROL 45 mg/dL
[2022-06-03 15:53] LABS: THYROID STIMULATING HORMONE 38.2 uIU/mL (0.34-5.60)
[2022-06-03 17:09] LABS: FREE T4 (FREE THYROXINE) 0.49 ng/dL (0.58-1.64)
== END 2022-06-03 08:14 | disposition home or self-care (01) ==
LOC: LAB.S 08:13
PROVIDERS: ATTEND Registered Nurse
DX: Z79.899 Other long term (current) drug therapy (principal); Z13.220 Encounter for screening for lipoid disorders; Z13.29 Encounter for screening for other suspected endocrine disorder
CPT/HCPCS: 36415; 80053; 80061; 83721; 84439; 84443; 85025

== ENCOUNTER 2022-06-06 11:13 | Outpatient (CLI) | payer MEDICAID | END 2022-06-06 11:14 | disposition home or self-care (01) | LOC: LAB 11:13 | PROVIDERS: ATTEND Obstetrics & Gynecology | DX: Z53.9 Procedure and treatment not carried out, unspecified reason (principal) | CPT/HCPCS: 36415; 80053; 85025; 86850; 86900; 86901 ==

== ENCOUNTER 2022-06-07 08:57 | Inpatient (IN) | payer MEDICAID ==
[2022-06-06 11:36] LABS: BASOPHILS % (AUTO) 0.8 %; EOSINOPHILS # (AUTO) 0.3 10^3/uL (0.0-0.7); EOSINOPHILS % (AUTO) 6.1 %; HCT - HEMATOCRIT 39.4 % (37.0-47.0); HGB - HEMOGLOBIN 13.2 g/dL (12.0-16.0); LYMPHOCYTES # (AUTO) 1.7 10^3/uL (1.5-3.5); LYMPHOCYTES % (AUTO) 33.5 %; MEAN CORPUSCULAR HEMOGLOBIN 31.4 pg (27.0-31.0); MEAN CORPUSCULAR HGB CONC 33.5 g/dL (32.0-36.0); MEAN CORPUSCULAR VOLUME 93.6 fL (81.0-99.0); MEAN PLATELET VOLUME 11.7 fL (7.9-10.8); MONOCYTES # (AUTO) 0.4 10^3/uL (0.0-1.0); MONOCYTES % (AUTO) 8.5 %; NEUTROPHILS # (AUTO) 2.5 10^3/uL (1.5-6.6); NEUTROPHILS % (AUTO) 50.7 %; PLT - PLATELET COUNT 161 10^3/uL (130-450); RED BLOOD COUNT 4.21 10^6/uL (4.20-5.40); RED CELL DISTRIBUTION WIDTH 13.2 % (12.0-15.0)
[2022-06-06 11:46] LABS: ALBUMIN 4.5 g/dL (3.2-5.5); ALBUMIN/GLOBULIN RATIO 1.7 (1.0-2.2); BILIRUBIN,TOTAL 0.8 mg/dL (0.2-1.0); CALCIUM 9.2 mg/dL (8.5-10.3); CREATININE 1.1 mg/dL (0.4-1.0); POTASSIUM 3.1 mmol/L (3.5-5.0); TOTAL PROTEIN 7.2 g/dL (6.7-8.2)
[2022-06-07] MEDS ORDERED: METHYLENE BLUE 0.5% 50 MG/10 ML AMPULE ONE (09:14)
[2022-06-07] MEDS ORDERED: ACETAMINOPHEN 500 MG TABLET PO ONE (09:16)
[2022-06-07] MEDS ORDERED: CELECOXIB 100 MG CAPSULE PO ONE (09:16)
[2022-06-07] MEDS ORDERED: CEFAZOLIN 2G/50ML 0.9% NS 2 GM/50 ML BAG IV ONE (09:16)
[2022-06-07] MEDS ORDERED: GABAPENTIN 400 MG CAPSULE ONE (09:17)
[2022-06-07] MEDS ORDERED: LACTATED RINGERS 1,000 ML IV ONE ×4 (09:34→21:12)
--- NOTE | 2022-06-07 10:04 | ANESTHESIA ---
Pre-Anesthesia VS, & Labs - Diagnosis abnormal uterine bleeding - Procedure hysterectomy, BSO Vital Signs: Temp Pulse Resp BP Pulse Ox 37 C 58 L 16 153/99 H 100 06/07/22 09:29 06/07/22 09:29 06/07/22 09:29 06/07/22 09:29 06/07/22 09:29 Height: 5 ft 1 in Weight (kg): 91 kg Body Mass Index: 37.9 BMI Classification: Obese - NPO >8 hours - Is Patient ?: No - Lab Results Current Lab Results: Laboratory Tests 06/07/22 09:42: POC Whole Bld Glucose 104 H Home Medications and Allergies Home Medications: Ambulatory Orders Cyclobenzaprine [Flexeril] 10 mg PO TID PRN 05/31/22 traMADol [Ultram] 50 mg PO Q6HR PRN 05/31/22 Albuterol Sulfate [Proair Hfa Inhaler] 2 puffs INH Q4H PRN 05/26/22 Amitriptyline [Elavil] 10 mg PO QPM 05/26/22 Baclofen [Lioresal] 10 mg PO BID PRN 05/26/22 Escitalopram Oxalate 20 mg PO DAILY 05/26/22 Gabapentin [Neurontin] 300 mg PO BID 05/26/22 Lisinopril/Hydrochlorothiazide [Zestoretic 20-12.5 mg Tablet] 2 tab PO DAILY 05/26/22 Ondansetron Odt [Zofran Odt] 4 mg PO Q4HR PRN 05/26/22 Pantoprazole Sodium 20 mg PO DAILY PRN 05/26/22 tiZANidine [Zanaflex] 4 mg PO BID PRN 05/26/22 Cyclobenzaprine [Flexeril] 10 mg PO TID PRN 05/31/22 traMADol [Ultram] 50 mg PO Q6HR PRN 05/31/22 Allergies/Adverse Reactions: Allergies Allergy/AdvReac Type Severity Reaction Status Date / Time nortriptyline Allergy Unknown Verified 05/25/22 19:40 duloxetine [From Cymbalta] AdvReac Severe Unknown Verified 05/31/22 10:34 sertraline [From Zoloft] AdvReac Severe Unknown Verified 05/31/22 10:34 venlafaxine AdvReac Severe Unknown Verified 05/31/22 10:34 fluoxetine [From Prozac] AdvReac Intermediate Unknown Verified 05/31/22 10:34 Anes History & Medical History - Anesthetic History Anesthesia Complications: reports: No previous complications - Medical History Cardiovascular: reports: Hypertension Pulmonary: reports: Shortness of breath, Other Gastrointestinal: reports: GERD Urinary: reports: Incontinence, Renal insuffiency (history ARF), Frequency Neuro: reports: Other (Chronic neck pain w/ numbness due to foraminal narrowing which necessitated the spinal fusion ) Musculoskeletal: reports: Osteoarthritis, Chronic back pain, Other Endocrine/Autoimmune: reports: None Blood Disorders: reports: None Skin: reports: Other Smoking Status: Former smoker History of Cancer?: No - Surgical History Gynecologic: reports: section Neurologic: reports: Other Orthopedic: reports: Other (ACD of cervical spine 7 months ago, has laryngeal nerve injury) Exam General: Alert Dental: WNL Mouth Opening: Greater than 4 Fingerbreadths Mallampati classification: II Thyromental Distance: greater than 6 cm Respiratory: Lungs clear Cardiovascular: Regular rate, Normal S1, Normal S2 Plan Anesthesia Type: General, Transverse Abdominis Plane (TAP) Block Consent for Procedure(s) Verified and Reviewed: Yes Code Status: Attempt Resuscitation ASA classification: 2-Mild systemic disease Is this case an emergency?: No
[2022-06-07] MEDS ORDERED: ePHEDrine 50 MG/ML VIAL IVP PRN (10:08)
[2022-06-07] MEDS ORDERED: fentaNYL 100 MCG/2 ML VIAL IVP PRN (10:08)
[2022-06-07] MEDS ORDERED: MORPHINE 2 MG/ML CARPUJECT IVP PRN (10:08)
[2022-06-07] MEDS ORDERED: NALOXONE 0.4 MG/ML VIAL IVP PRN (10:08)
[2022-06-07] MEDS ORDERED: METOCLOPRAMIDE 10 MG/2 ML VIAL IVP PRN (10:08)
[2022-06-07] MEDS ORDERED: ATROPINE ABBOJECT 1 MG/10 ML SYRINGE IVP PRN (10:08)
[2022-06-07] MEDS ORDERED: HYDROmorphone 0.5 MG/0.5 ML SYRINGE IVP PRN (10:08)
[2022-06-07] MEDS ORDERED: ONDANSETRON 4 MG/2 ML VIAL IVP PRN (10:08)
[2022-06-07] MEDS ORDERED: PROPOFOL 200 MG/20 ML VIAL IVP ONE (10:46)
[2022-06-07] MEDS ORDERED: ROCURONIUM 50 MG/5 ML VIAL ONE ×2 (10:46→14:04)
[2022-06-07] MEDS ORDERED: LIDOCAINE-MPF 2% 5 ML VIAL ONE (10:46)
[2022-06-07] MEDS ORDERED: fentaNYL 100 MCG/2 ML VIAL ONE ×4 (10:48→14:10)
[2022-06-07] MEDS ORDERED: MIDAZOLAM 2 MG/2 ML VIAL ONE (10:48)
[2022-06-07] MEDS ORDERED: ONDANSETRON 4 MG/2 ML VIAL ONE ×2 (11:30→18:32)
[2022-06-07] MEDS ORDERED: DEXAMETHASONE 4 MG/ML VIAL ONE (11:30)
[2022-06-07] MEDS ORDERED: LABETALOL 5 MG/1 ML 20 ML MDV ONE (11:51)
[2022-06-07] MEDS ORDERED: SEVOFLURANE 250 ML LIQUID INH ONE (12:39)
[2022-06-07] MEDS ORDERED: hydrALAZINE INJ 20 MG/ML VIAL ONE ×2 (14:15→14:37)
[2022-06-07] MEDS ORDERED: ceFAZolin 1 GM VIAL ONE (14:44)
[2022-06-07] MEDS ORDERED: VASOPRESSIN 20 UNIT/ML VIAL ONE (15:18)
[2022-06-07] MEDS ORDERED: SODIUM CHLORIDE 0.9% 10 ML VIAL IVP ONE (16:18)
[2022-06-07] MEDS ORDERED: ROPIVACAINE 0.5% PF 20 ML AMPULE ONE ×2 (16:48→16:51)
[2022-06-07] MEDS ORDERED: ACETAMINOPHEN 500 MG TABLET PO SCH (18:00)
[2022-06-07] MEDS ORDERED: KETOROLAC 30 MG/ML VIAL IVP SCH (18:00)
[2022-06-07] MEDS ORDERED: SUGAMMADEX 200 MG/2 ML VIAL IVP ONE (18:04)
--- NOTE | 2022-06-07 18:05 | OPERATIVE REPORT ---
Operative Report - General Admit Date: 06/07/22 Planned Procedure: Total abdominal hysterectomy, bilateral salpingectomy, cystoscopy Pre-Op Diagnosis: Uterine fibroids, abdominal pain Procedure Performed: Total abdominal hysterectomy, bilateral salpingectomy, cystoscopy Post Op Diagnosis: Same - Procedure Note Primary Surgeon: Carmelo Ramsey MD Secondary Surgeon: Kelsey Colón MD; Michelle العراقي MD Anesthesia Provider: Vi Wellington CRNA Anesthesia Technique: General ET tube Pathology: Uterus, cervix, bilateral fallopian tubes IV Fluids (mL): 2,000 Estimated Blood Loss (mL): 1,000 Urine Output (mL): 1,000 Complications: None - Other Other Information/Narrative: The patient was taken to the operative room where general anesthesia was obtained without difficulty. The patient was placed in dorsal low lithotomy position. Winston catheter was placed. SCDs were placed on the patient's legs. The patient was prepped and draped in the usual sterile fashion. A Pfannenstiel skin incision was performed over the site of her previous sections. This was carried down to the underlying fascia. The fascia was opened with Garcia scissors. Using David clamps, the fascia was elevated and dissected off the rectus muscles superiorly then inferiorly. The peritoneum was identified and entered sharply. The incision was extended cranially and caudally. At that point, the omental adhesions were noted to the anterior abdominal wall and were suture-ligated then cut and cauterized with the LigaSure device. After good visualization was achieved, the Nirmala retractor was placed in the abdomen and rolled to provide retraction, ensuring no other organs were in its way. Upon visualization of the pelvis, a small uterus with several large fibroids was seen. Wet packings were placed to remove bowel from the field. Slight Trendelenburg position was used to better visualize the uterus. The right tube was identified and grasped with a Brightwood clamp and cut and cauterized along the mesosalpinx. This was done to the previous site of tubal ligation. The right utero-ovarian ligament was coagulated and cut and from the uterus on the right-hand side. The uterus was then elevated with a David clamp along the round ligament which was then cauterized and cut, making way down to the bladder. The bladder flap was carefully dissected with a combination of sharp and blunt dissection. There were many adhesions from previous C-sections. The left side was then also grasped and coagulated and cut and met to the previous bladder flap incision. The left ear ovarian ligament was then coagulated and cut the left ovary from the uterus. The left side of the uterus was less adhesed, so the vessels were skeletonized and cauterized and cut marching down the cervix. After freeing space, it was noted that the cervix and the fibroid were very close together and difficult to separate, so the surg romina went vaginally to place a uterine manipulator. Sterile attire was changed. At this point, pressure from the manipulator allowed us to delineate the cervix from the surrounding fibroid. The right sized fibroid was then carefully shelled from the broad ligament and carried down to the abdominal wall, with vessels skeletonized, cut, and coagulated. Due to the difficulty of the dissection, Dr. العراقي was called to assist. After freeing the rest of the uterus, the vagina was from the cervix and the uterus was removed from the abdomen. The vaginal cuff was closed with a running stitch of 0 vicryl. The left fallopian tube was then identified, grasped with ildefonso clamps, and coagulated and cut, removing it from the mesosalpinx. Attention was then turned to the cystoscopy. The cystoscope was then introduced after removal of the Winston. Under direct visualization using normal saline distending media the ureters were identified bilaterally. The bladder was distended and the anatomic boundaries of the bladder were inspected and found to be free from injury. Methylene blue was added intravenously. After 5 minutes, there was no fluid seen, the sutures were removed from the cuff. Jets were still not seen, so 25 ml of manitol was placed in the bladder and bilateral, brisk jets were seen from the ureters. The bladder was drained and the cystoscope was removed. The Winston catheter was replaced in a sterile fashion. The vaginal cuff was closed with interrupted sutures. The pelvis was irrigated and checked for bleeding. The cavity from the fibroid was oozing, so floseal was used. Hemostasis was noted. The nirmala retractor was removed from the abdomen. No bleeding was noted from the abdominal muscles. A David clamp was used to grasp the corner of the fascia. This was closed with an 0 PDS loop suture. This was closed in a running fashion. The subcutaneous tissue was irrigated. Skin was closed with a running suture of 4 oh the subcutaneous tissue was closed with a running suture of 2-0 Vicryl. The Monocryl. Steri-Strips were used on the skin incision which was then covered with a Telfa and ABD pads. The patient was then cleaned and dried and legs brought down out of lithotomy position simultaneously. Sponge lap and needle counts were reported correct by the nursing staff following the procedure. A tap block was performed after the procedure. The patient was then transferred to PACU in stable condition.
[2022-06-07 18:30] LABS: HCT - HEMATOCRIT 37.9 % (37.0-47.0); HGB - HEMOGLOBIN 12.7 g/dL (12.0-16.0)
[2022-06-07] MEDS ORDERED: ACETAMINOPHEN 1,000 MG/100 ML 1,000 MG/100 ML BAG IV ONE (18:39)
[2022-06-07] MEDS ORDERED: KETOROLAC 30 MG/ML VIAL IVP PRN (18:40)
[2022-06-07] MEDS ORDERED: PROMETHAZINE INJ 25 MG in SODIUM CHLORIDE 0.9% 50 ML IV PRN (18:40)
[2022-06-07] MEDS ORDERED: KETOROLAC 30 MG/ML VIAL ONE (18:52)
[2022-06-07] MEDS ORDERED: ACETAMINOPHEN 1,000 MG/100 ML 100 ML IV ONE (18:53)
[2022-06-07] MEDS: PROMETHAZINE 25 MG/1 ML VIAL ONE ×2 (18:55→20:38)
[2022-06-07] MEDS ORDERED: ePHEDrine 50 MG/ML VIAL IVP ONE (18:58)
[2022-06-07] MEDS: ePHEDrine 50 MG/ML VIAL IVP PRN ×2 (19:22→19:58)
--- NOTE | 2022-06-07 21:25 | ANESTHESIA POST OP EVALUATION ---
Anesthesia Post Eval - Post Anesthesia Eval Vitals: Last Vital Signs Temp 36.4 C L 06/07/22 21:13 Pulse 76 06/07/22 21:13 Resp 12 06/07/22 21:13 BP 93/62 06/07/22 21:13 Pulse Ox 97 06/07/22 21:13 CV Function Including HR & BP: Stable Pain Control: Satisfactory Nausea & Vomiting: Negative Mental Status: Baseline Respiratory Status: Airway Patent Hydration Status: Satisfactory Anesthesia Complications: None
[2022-06-07] MEDS: LACTATED RINGERS 1,000 ML IV SCH ×3 (22:02→22:03)
[2022-06-07] MEDS: ONDANSETRON ODT 4 MG TABLET TL PRN (22:11)
[2022-06-07] MEDS: DOCUSATE SODIUM 100 MG CAPSULE PO SCH (22:30)
[2022-06-07 22:58] LABS: HCT - HEMATOCRIT 39.7 % (37.0-47.0); HGB - HEMOGLOBIN 13.5 g/dL (12.0-16.0)
[2022-06-07] MEDS: oxyCODONE 5 MG TABLET PO PRN (23:58)
[2022-06-08] MEDS: KETOROLAC 30 MG/ML VIAL IVP SCH ×3 (04:22→16:38)
[2022-06-08] MEDS: ONDANSETRON ODT 4 MG TABLET TL PRN (04:28)
[2022-06-08] MEDS: ACETAMINOPHEN 500 MG TABLET PO SCH ×4 (04:30→21:48)
[2022-06-08 05:56] LABS: BASOPHILS # (AUTO) 0.1 10^3/uL (0.0-0.1); BASOPHILS % (AUTO) 0.4 %; HCT - HEMATOCRIT 36.7 % (37.0-47.0); HGB - HEMOGLOBIN 12.5 g/dL (12.0-16.0); LYMPHOCYTES # (AUTO) 1.5 10^3/uL (1.5-3.5); LYMPHOCYTES % (AUTO) 10.5 %; MEAN CORPUSCULAR HEMOGLOBIN 31.5 pg (27.0-31.0); MEAN CORPUSCULAR HGB CONC 34.1 g/dL (32.0-36.0); MEAN CORPUSCULAR VOLUME 92.4 fL (81.0-99.0); MEAN PLATELET VOLUME 12.4 fL (7.9-10.8); MONOCYTES # (AUTO) 0.9 10^3/uL (0.0-1.0); MONOCYTES % (AUTO) 6.2 %; NEUTROPHILS # (AUTO) 11.7 10^3/uL (1.5-6.6); NEUTROPHILS % (AUTO) 82.5 %; PLT - PLATELET COUNT 126 10^3/uL (130-450); RED BLOOD COUNT 3.97 10^6/uL (4.20-5.40); RED CELL DISTRIBUTION WIDTH 13.3 % (12.0-15.0); WHITE BLOOD COUNT 14.1 x10^3/uL (4.8-10.8)
[2022-06-08 06:05] LABS: CALCIUM 8.3 mg/dL (8.5-10.3); CREATININE 1.2 mg/dL (0.4-1.0); POTASSIUM 3.1 mmol/L (3.5-5.0)
[2022-06-08] MEDS: LACTATED RINGERS 1,000 ML IV SCH ×2 (07:27→18:01)
[2022-06-08] MEDS: SIMETHICONE CHEW 80 MG TABLET PO PRN ×2 (08:11→23:37)
[2022-06-08] MEDS: GABAPENTIN 300 MG CAPSULE PO SCH ×2 (08:11→21:48)
[2022-06-08] MEDS: DOCUSATE SODIUM 100 MG CAPSULE PO SCH ×2 (08:11→21:48)
--- NOTE | 2022-06-08 08:47 | PROVIDER PROGRESS NOTE ---
Subjective - Prog Note Date Prog Note Date: 06/08/22 - Subjective Pt reports feeling: No change Subjective: Did have intermittent hypotension overnight,. Patient in PACU received ephedrine to maintain blood pressures. Throughout, her mentation and pulse are stable. Repeat H/H also remained stable. Consulted telehealth intensivists for possible ICD placement, but blood pressures stabilized and was admitted to the floor. Nausea but no vomiting. Urge to void. Has not eaten nor ambulated Objective - Vital Signs/Intake & Output Reviewed Vital Signs: Yes Vital Signs: Vital Signs x48h Temp Pulse Resp BP Pulse Ox 06/08/22 07:26 97.9 F 89 20 119/85 H 95 06/08/22 05:00 97.7 F 85 18 120/82 H 97 Intake & Output: Intake & Output 06/05/22 06/06/22 06/07/22 06/08/22 23:59 23:59 23:59 23:59 Intake Total 2019 1471 Output Total 2145 600 Balance -125 871 - Objective General Appearance: positive: Mild distress - Lab Results Fish Bones: 06/08/22 05:48 06/08/22 05:48 Other Labs: Lab Results x24hrs 06/08/22 06/08/22 06/07/22 Range/Units 05:48 05:48 22:53 WBC 14.1 H (4.8-10.8) x10^3/uL RBC 3.97 L (4.20-5.40) 10^6/uL Hgb 12.5 13.5 (12.0-16.0) g/dL Hct 36.7 L 39.7 (37.0-47.0) % MCV 92.4 (81.0-99.0) fL MCH 31.5 H (27.0-31.0) pg MCHC 34.1 (32.0-36.0) g/dL RDW 13.3 (12.0-15.0) % Plt Count 126 L (130-450) 10^3/uL MPV 12.4 H (7.9-10.8) fL Neut # (Auto) 11.7 H (1.5-6.6) 10^3/uL Lymph # (Auto) 1.5 (1.5-3.5) 10^3/uL [place] # (Auto) 0.9 (0.0-1.0) 10^3/uL Eos # (Auto) 0.0 (0.0-0.7) 10^3/uL Baso # (Auto) 0.1 (0.0-0.1) 10^3/uL Absolute Nucleated RBC 0.00 x10^3/uL Nucleated RBC % 0.0 /100WBC Sodium 139 (135-145) mmol/L Potassium 3.1 L (3.5-5.0) mmol/L Chloride 103 (101-111) mmol/L Carbon Dioxide 22 (21-32) mmol/L Anion Gap 14.0 H (6-13) BUN 16 (6-20) mg/dL Creatinine 1.2 H (0.4-1.0) mg/dL Estimated GFR (MDRD) 48 L (>89) Glucose 132 H (70-100) mg/dL POC Whole Bld Glucose (70 - 100) mg/dL Calcium 8.3 L (8.5-10.3) mg/dL Total Bilirubin (0.2-1.0) mg/dL AST (10-42) IU/L ALT (10-60) IU/L Alkaline Phosphatase (42-121) IU/L Total Protein (6.7-8.2) g/dL Albumin (3.2-5.5) g/dL Globulin (2.1-4.2) g/dL Albumin/Globulin Ratio (1.0-2.2) Blood Type Antibody Screen Crossmatch IS Only 06/07/22 06/07/22 06/07/22 Range/Units 19:38 18:26 09:42 WBC (4.8-10.8) x10^3/uL RBC (4.20-5.40) 10^6/uL Hgb 12.7 (12.0-16.0) g/dL Hct 37.9 (37.0-47.0) % MCV (81.0-99.0) fL MCH (27.0-31.0) pg MCHC (32.0-36.0) g/dL RDW (12.0-15.0) % Plt Count (130-450) 10^3/uL MPV (7.9-10.8) fL Neut # (Auto) (1.5-6.6) 10^3/uL Lymph # (Auto) (1.5-3.5) 10^3/uL [place] # (Auto) (0.0-1.0) 10^3/uL Eos # (Auto) (0.0-0.7) 10^3/uL Baso # (Auto) (0.0-0.1) 10^3/uL Absolute Nucleated RBC x10^3/uL Nucleated RBC % /100WBC Sodium (135-145) mmol/L Potassium (3.5-5.0) mmol/L Chloride (101-111) mmol/L Carbon Dioxide (21-32) mmol/L Anion Gap (6-13) BUN (6-20) mg/dL Creatinine (0.4-1.0) mg/dL Estimated GFR (MDRD) (>89) Glucose (70-100) mg/dL POC Whole Bld Glucose 174 H 104 H (70 - 100) mg/dL Calcium (8.5-10.3) mg/dL Total Bilirubin (0.2-1.0) mg/dL AST (10-42) IU/L ALT (10-60) IU/L Alkaline Phosphatase (42-121) IU/L Total Protein (6.7-8.2) g/dL Albumin (3.2-5.5) g/dL Globulin (2.1-4.2) g/dL Albumin/Globulin Ratio (1.0-2.2) Blood Type Antibody Screen Crossmatch IS Only 06/06/22 06/06/22 06/06/22 Range/Units 11:27 11:27 11:27 WBC 5.0 (4.8-10.8) x10^3/uL RBC 4.21 (4.20-5.40) 10^6/uL Hgb 13.2 (12.0-16.0) g/dL Hct 39.4 (37.0-47.0) % MCV 93.6 (81.0-99.0) fL MCH 31.4 H (27.0-31.0) pg MCHC 33.5 (32.0-36.0) g/dL RDW 13.2 (12.0-15.0) % Plt Count 161 (130-450) 10^3/uL MPV 11.7 H (7.9-10.8) fL Neut # (Auto) 2.5 (1.5-6.6) 10^3/uL Lymph # (Auto) 1.7 (1.5-3.5) 10^3/uL [place] # (Auto) 0.4 (0.0-1.0) 10^3/uL Eos # (Auto) 0.3 (0.0-0.7) 10^3/uL Baso # (Auto) 0.0 (0.0-0.1) 10^3/uL Absolute Nucleated RBC 0.00 x10^3/uL Nucleated RBC % 0.0 /100WBC Sodium 138 (135-145) mmol/L Potassium 3.1 L (3.5-5.0) mmol/L Chloride 100 L (101-111) mmol/L Carbon Dioxide 30 (21-32) mmol/L Anion Gap 8.0 (6-13) BUN 9 (6-20) mg/dL Creatinine 1.1 H (0.4-1.0) mg/dL Estimated GFR (MDRD) 53 L (>89) Glucose 107 H (70-100) mg/dL POC Whole Bld Glucose (70 - 100) mg/dL Calcium 9.2 (8.5-10.3) mg/dL Total Bilirubin 0.8 (0.2-1.0) mg/dL AST 21 (10-42) IU/L ALT 16 (10-60) IU/L Alkaline Phosphatase 53 (42-121) IU/L Total Protein 7.2 (6.7-8.2) g/dL Albumin 4.5 (3.2-5.5) g/dL Globulin 2.7 (2.1-4.2) g/dL Albumin/Globulin Ratio 1.7 (1.0-2.2) Blood Type O POSITIVE Antibody Screen NEGATIVE Crossmatch IS Only See Detail Assessment/Plan - Problem List (1) S/P abdominal hysterectomy Impression: Patient stable this AM. Pain is generally well-controlled as expected after surgery CT IVP this AM Will add prochloperazine for nausea as this is her biggest concern. EBL at surgery. So far H/H has been stable, but I expect a drop tomorrow. We will continue IV fluids today as her creatinine remains slightly elevated. Will likely normalize after she takes p.o. and fluid equilibrates. Encouraged PO diet todayd Encouraged ambulation. Will remove catheter when ambulating. (2) Uterine fibroid Impression: Status post abdominal hysterectomy. Qualifiers: Uterine leiomyoma location: intramural and subserous Qualified Code(s): D25.1 - Intramural leiomyoma of uterus; D25.2 - Subserosal leiomyoma of uterus (3) Nausea Impression: Prochlorperazine as above (4) Hot flashes Impression: Not unusual after hysterectomy and dissection of ovaries from uterus. Continue to monitor at this time.
[2022-06-08] MEDS: PROCHLORPERAZINE 10 MG/2 ML VIAL IVP PRN (09:10)
[2022-06-08] MEDS ORDERED: ePHEDrine 50 MG/ML VIAL IVP ONE (10:12)
[2022-06-08] MEDS: oxyCODONE 5 MG TABLET PO PRN ×2 (12:56→23:34)
--- NOTE | 2022-06-08 14:29 | CT Report ---
PROCEDURE: IVP INDICATIONS: Decreased urinary flow after surgery CONTRAST: IV CONTRAST: Optiray 320 ml: 140 PO CONTRAST: *NO PO CONTRAST TECHNIQUE: After the administration of oral and intravenous contrast, 5 mm thick sections acquired from the diap hragms to the symphysis. 5 mm thick coronal and sagittal reformats were acquired. For radiation dos e reduction, the following was used: automated exposure control, adjustment of mA and/or kV accordin g to patient size. COMPARISON: CT abdomen pelvis 05/25/2022 FINDINGS: Image quality: Excellent. Lung bases: Linear left basilar opacity is present suggestive of atelectasis. Heart size is normal. Urinary system: Both kidneys are normal in size and enhancement. Contrast-filled renal calyces are normal in morphology. The right ureter lacks contrast opacification within the midportion. There is a short segment along the right ureteral orifice seen on series 7 images 68 through 71 where there is very faint contrast opacification of the ureter. There is a ill-defined adjacent area of patchy fluid . The left ureter also demonstrates ureteral nonopacification. However, this is at the distal 1.5 cm at the ureterovesicular junction. Bladder is decompressed with a Winston catheter. Nondependent air is present. Solid organs: Liver and spleen are normal in size and enhancement. Gallbladder is unremarkable. Bi liary system is non dilated. Pancreas enhances normally. No adrenal nodules. Peritoneum and bowel: Bowel loops demonstrate fluid-filled loops of small bowel with greatest AP dim ension measuring 3.5 cm.. There are several punctate areas of air identified along the posterior aspe ct of the superior most bladder seen on series 5 image 78. Nodes and vessels: No retroperitoneal or mesenteric adenopathy by size criteria. Aorta and inferior vena cava are normal in size. Abdominal wall: No ventral hernias. Subcutaneous air is noted along the anterior abdominal wall. Pelvis: No pathologic free pelvic fluid. No inguinal hernias or adenopathy. 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 Bones: No suspicious bony lesions. No vertebral body compression fractures. IMPRESSION: Surgical changes reflecting hysterectomy. Small punctate areas of free air identified consistent with recent surgery. Nonopacification of the mid right ureter as described above with ill-defined focus of fluid opacity. Appearance is suggestive although not definitive of ureteral injury and possibly currently. Dilated fluid-filled loops of small bowel most suggestive of mild partial small bowel obstruction. Reviewed by: Joan Anne MD on 06/08/2022 2:27 PM PDT Approved by: Joan Anne MD on 06/08/2022 2:27 PM PDT Station ID: [id number]
[2022-06-08 15:32] LABS: CALCIUM 8.2 mg/dL (8.5-10.3); CREATININE 1.1 mg/dL (0.4-1.0); POTASSIUM 2.9 mmol/L (3.5-5.0)
--- NOTE | 2022-06-08 17:00 | PROVIDER PROGRESS NOTE ---
Progress Note Pain is controlled, but patient has had limited movement. Walked with patient around room. Patient sat up and transferred herself. Ordered abdominal binder for patient. Winston out. Consulted urology to assess IVP read as it appears to have slowed in some segments, but may be due to peristalsis artifact. Creatinine stable at 1.1, BUN at 16. Good urine output. No hydroureter or hydronephrosis. No abdominal spilling of IV contrast. Pain controlled as expected. Encouraged ambulation and diet. CT scan reads partial small bowel obstruction, but ileus may be more likely given a long, open procedure. No vomiting, but no appetite. Will allow oral food if desires and continue to monitor.
[2022-06-08] MEDS: POTASSIUM CHLORIDE 20 MEQ TABLET PO SCH (21:48)
[2022-06-09] MEDS: ACETAMINOPHEN 500 MG TABLET PO SCH ×4 (03:39→22:05)
[2022-06-09] MEDS: LACTATED RINGERS 1,000 ML IV SCH (03:39)
[2022-06-09] MEDS: oxyCODONE 5 MG TABLET PO PRN ×4 (04:31→21:54)
[2022-06-09] MEDS: SIMETHICONE CHEW 80 MG TABLET PO PRN ×2 (04:33→12:47)
[2022-06-09 04:55] LABS: BASOPHILS # (AUTO) 0.1 10^3/uL (0.0-0.1); BASOPHILS % (AUTO) 0.5 %; EOSINOPHILS # (AUTO) 0.1 10^3/uL (0.0-0.7); EOSINOPHILS % (AUTO) 0.5 %; HCT - HEMATOCRIT 26.1 % (37.0-47.0); HGB - HEMOGLOBIN 8.7 g/dL (12.0-16.0); LYMPHOCYTES # (AUTO) 1.5 10^3/uL (1.5-3.5); LYMPHOCYTES % (AUTO) 13.6 %; MEAN CORPUSCULAR HEMOGLOBIN 31.3 pg (27.0-31.0); MEAN CORPUSCULAR HGB CONC 33.3 g/dL (32.0-36.0); MEAN CORPUSCULAR VOLUME 93.9 fL (81.0-99.0); MEAN PLATELET VOLUME 13.1 fL (7.9-10.8); MONOCYTES # (AUTO) 0.8 10^3/uL (0.0-1.0); MONOCYTES % (AUTO) 6.9 %; NEUTROPHILS # (AUTO) 8.7 10^3/uL (1.5-6.6); NEUTROPHILS % (AUTO) 78.1 %; PLT - PLATELET COUNT 80 10^3/uL (130-450); RED BLOOD COUNT 2.78 10^6/uL (4.20-5.40); WHITE BLOOD COUNT 11.1 x10^3/uL (4.8-10.8)
[2022-06-09 05:11] LABS: CALCIUM 7.8 mg/dL (8.5-10.3); CREATININE 0.9 mg/dL (0.4-1.0); POTASSIUM 3.1 mmol/L (3.5-5.0)
--- NOTE | 2022-06-09 08:28 | PROVIDER PROGRESS NOTE ---
Subjective - Prog Note Date Prog Note Date: 06/09/22 - Subjective Pt reports feeling: Improved Subjective: Patient improved overnight. Has lower as well as sitting up more in bed. Pain well controlled, as expected, worse when sitting up. Passing gas but no BM. Voiding without difficulty. Tolerating p.o., appetite. No dizziness or lightheadedness. Still has some hot flashes. Objective - Vital Signs/Intake & Output Reviewed Vital Signs: Yes Vital Signs: Vital Signs x48h Temp Pulse Resp BP Pulse Ox 06/09/22 08:00 98.2 F 84 18 156/90 H 96 06/09/22 04:35 98.2 F 83 18 154/80 H 97 Intake & Output: Intake & Output 06/06/22 06/07/22 06/08/22 06/09/22 23:59 23:59 23:59 23:59 Intake Total 2019 2911 1113.333 Output Total 2145 2300 601 Balance -125 611 512.333 - Lab Results Fish Bones: 06/09/22 04:21 06/09/22 04:21 Other Labs: Lab Results x24hrs 06/09/22 06/09/22 06/08/22 Range/Units 04:21 04:21 15:15 WBC 11.1 H (4.8-10.8) x10^3/uL RBC 2.78 L (4.20-5.40) 10^6/uL Hgb 8.7 L (12.0-16.0) g/dL Hct 26.1 L (37.0-47.0) % MCV 93.9 (81.0-99.0) fL MCH 31.3 H (27.0-31.0) pg MCHC 33.3 (32.0-36.0) g/dL RDW 14.0 (12.0-15.0) % Plt Count 80 L (130-450) 10^3/uL MPV 13.1 H (7.9-10.8) fL Neut # (Auto) 8.7 H (1.5-6.6) 10^3/uL Lymph # (Auto) 1.5 (1.5-3.5) 10^3/uL [place] # (Auto) 0.8 (0.0-1.0) 10^3/uL Eos # (Auto) 0.1 (0.0-0.7) 10^3/uL Baso # (Auto) 0.1 (0.0-0.1) 10^3/uL Absolute Nucleated RBC 0.00 x10^3/uL Nucleated RBC % 0.0 /100WBC Sodium 137 139 (135-145) mmol/L Potassium 3.1 L 2.9 L (3.5-5.0) mmol/L Chloride 105 102 (101-111) mmol/L Carbon Dioxide 28 24 (21-32) mmol/L Anion Gap 4.0 L 13.0 (6-13) BUN 15 16 (6-20) mg/dL Creatinine 0.9 1.1 H (0.4-1.0) mg/dL Estimated GFR (MDRD) 67 L 53 L (>89) Glucose 118 H 120 H (70-100) mg/dL Calcium 7.8 L 8.2 L (8.5-10.3) mg/dL - Other Results/Comments Other Results/Comments: Physical Constitutional: alert, no acute distress, well hydrated, well developed, well nourished, appropriate dress. Cardiovascular: Regular rate and rhythm. Respiratory: no respiratory distress. Abdomen: Appropriately tender, mostly around incisision. Incision clean, dry and intact. Bowel sounds normal in all quadrants. Psych: affect and mood appropriate, normal interaction, good eye contact. Back: No CVA tenderness Assessment/Plan - Problem List (1) S/P abdominal hysterectomy Impression: Normal postoperative course. Continue pain control. Increase ambulation and oral intake today. Possible discharge today, but I would prefer a bowel movement and reassessment of her H/H. Her blood loss seems appropriate after her surgery, but as it had not equilibrated yesterday, I want to ensure this is not an acute drop. Passing gas but no BM, risk for ileus, but asymptomatic at this time. No IV contrast seen on CT left distal ureter, may be peristalsis artifact. Discussed situation with Dr. Tsang at [facility] who recommends expectant management possible renal ultrasound in 1 week or sooner if she becomes symptomatic. (2) Uterine fibroid Impression: Satus post abdominal hysterectomy. Qualifiers: Uterine leiomyoma location: intramural and subserous Qualified Code(s): D25.1 - Intramural leiomyoma of uterus; D25.2 - Subserosal leiomyoma of uterus (3) Nausea Impression: Much improved. (4) Hot flashes Impression: Intermittent. Continue to monitor at this time. (5) Acute blood loss anemia Impression: H/H 15.2/39.4-8.7/26.1 today. Likely an appropriate fall postsurgically. We will repeat to ensure this is not an acute loss. (6) Hypertension Impression: Restart home lisinopril Qualifiers: Hypertension type: primary hypertension Qualified Code(s): I10 - Essential (primary) hypertension
[2022-06-09] MEDS: DOCUSATE SODIUM 100 MG CAPSULE PO SCH ×2 (09:05→20:53)
[2022-06-09] MEDS: GABAPENTIN 300 MG CAPSULE PO SCH ×2 (09:05→20:52)
[2022-06-09] MEDS: lisinopriL 20 MG TABLET PO SCH (09:05)
[2022-06-09] MEDS: POTASSIUM CHLORIDE 20 MEQ TABLET PO SCH ×2 (09:05→20:52)
[2022-06-09] MEDS: ONDANSETRON ODT 4 MG TABLET TL PRN (11:57)
[2022-06-09] MEDS: PROCHLORPERAZINE 10 MG/2 ML VIAL IVP PRN ×2 (12:47→21:56)
[2022-06-09] MEDS ORDERED: polyethylene glycoL 3350 17 GM PACKET PO PRN (13:04)
--- NOTE | 2022-06-09 13:08 | PROVIDER PROGRESS NOTE ---
Subjective - Prog Note Date Prog Note Date: 06/09/22 Prog Note Time: 13:04 - Subjective Subjective: Patient having increased incisional sharp pain. This happened when she tried sitting up. Still having decreased appetite. Had a few bites of breakfast, no lunch yet. Passing gas. Says she feels like she wants to have a BM, but hasn't. Says it feels like it comes down then goes back up. Wants to try additional medication. Will try one dose of miralax. Discussed risk of ileus vs bowel obstruction vs increasing diet. Ideally she will have a bm and increase tolerance of PO. If not, will consider NPO, fluid hydration, and bowel rest, although she is almost there already. Objective - Vital Signs/Intake & Output Vital Signs: Vital Signs x48h Temp Pulse Resp BP Pulse Ox 06/09/22 12:00 97.3 F L 84 18 159/85 H 96 06/09/22 08:00 98.2 F 84 18 156/90 H 96 Intake & Output: Intake & Output 06/06/22 06/07/22 06/08/22 06/09/22 23:59 23:59 23:59 23:59 Intake Total 2019 2911 1863.333 Output Total 2145 2300 601 Balance -062 222 4775.333 - Lab Results Fish Bones: 06/09/22 04:21 06/09/22 04:21 Other Labs: Lab Results x24hrs 06/09/22 06/09/22 06/08/22 Range/Units 04:21 04:21 15:15 WBC 11.1 H (4.8-10.8) x10^3/uL RBC 2.78 L (4.20-5.40) 10^6/uL Hgb 8.7 L (12.0-16.0) g/dL Hct 26.1 L (37.0-47.0) % MCV 93.9 (81.0-99.0) fL MCH 31.3 H (27.0-31.0) pg MCHC 33.3 (32.0-36.0) g/dL RDW 14.0 (12.0-15.0) % Plt Count 80 L (130-450) 10^3/uL MPV 13.1 H (7.9-10.8) fL Neut # (Auto) 8.7 H (1.5-6.6) 10^3/uL Lymph # (Auto) 1.5 (1.5-3.5) 10^3/uL [place] # (Auto) 0.8 (0.0-1.0) 10^3/uL Eos # (Auto) 0.1 (0.0-0.7) 10^3/uL Baso # (Auto) 0.1 (0.0-0.1) 10^3/uL Absolute Nucleated RBC 0.00 x10^3/uL Nucleated RBC % 0.0 /100WBC Sodium 137 139 (135-145) mmol/L Potassium 3.1 L 2.9 L (3.5-5.0) mmol/L Chloride 105 102 (101-111) mmol/L Carbon Dioxide 28 24 (21-32) mmol/L Anion Gap 4.0 L 13.0 (6-13) BUN 15 16 (6-20) mg/dL Creatinine 0.9 1.1 H (0.4-1.0) mg/dL Estimated GFR (MDRD) 67 L 53 L (>89) Glucose 118 H 120 H (70-100) mg/dL Calcium 7.8 L 8.2 L (8.5-10.3) mg/dL Assessment/Plan - Problem List (2) Uterine fibroid Qualifiers: Uterine leiomyoma location: intramural and subserous Qualified Code(s): D25.1 - Intramural leiomyoma of uterus; D25.2 - Subserosal leiomyoma of uterus (6) Hypertension Qualifiers: Hypertension type: primary hypertension Qualified Code(s): I10 - Essential (primary) hypertension
--- NOTE | 2022-06-09 16:21 | PHARMACY PROGRESS NOTE ---
- Best Possible Medication History Admit Date and Time: 06/07/22 0857 Processed by: Pharmacy Medication History completed: Yes Patient Interview: Completed Secondary Source(s): Written medication list, Insurance records As the person ultimately responsible for medication therapy, providers are able to order a medication from an existing home medication list in [facility] via the "Reconcile Routine" prior to Confirmation of that medication by geophysical support specialist. Such practice is discouraged except when the physician, in their clinical judgment, deems that a medical need exists for a medication without regard to previous use.
[2022-06-10] MEDS: SODIUM CHLORIDE FLUSH 0.9% 10 ML SYRINGE IVP SCH ×3 (01:27→15:56)
[2022-06-10] MEDS: ACETAMINOPHEN 500 MG TABLET PO SCH ×3 (03:46→16:40)
[2022-06-10] MEDS: oxyCODONE 5 MG TABLET PO PRN (04:50)
[2022-06-10 05:17] LABS: MAGNESIUM 1.8 mg/dL (1.7-2.8)
[2022-06-10 06:02] LABS: BASOPHILS # (AUTO) 0.1 10^3/uL (0.0-0.1); BASOPHILS % (AUTO) 0.5 %; EOSINOPHILS # (AUTO) 0.2 10^3/uL (0.0-0.7); EOSINOPHILS % (AUTO) 2.5 %; HCT - HEMATOCRIT 23.8 % (37.0-47.0); LYMPHOCYTES # (AUTO) 1.2 10^3/uL (1.5-3.5); LYMPHOCYTES % (AUTO) 12.5 %; MEAN CORPUSCULAR HEMOGLOBIN 32.1 pg (27.0-31.0); MEAN CORPUSCULAR HGB CONC 33.6 g/dL (32.0-36.0); MEAN CORPUSCULAR VOLUME 95.6 fL (81.0-99.0); MEAN PLATELET VOLUME 13.7 fL (7.9-10.8); MONOCYTES # (AUTO) 0.5 10^3/uL (0.0-1.0); MONOCYTES % (AUTO) 5.1 %; NEUTROPHILS # (AUTO) 7.6 10^3/uL (1.5-6.6); NEUTROPHILS % (AUTO) 78.4 %; NRBC ABSOLUTE COUNT (AUTO) 0.02 x10^3/uL; NUCLEATED RED BLOOD CELLS AUTO 0.2 /100WBC; PLT - PLATELET COUNT 67 10^3/uL (130-450); RED BLOOD COUNT 2.49 10^6/uL (4.20-5.40); RED CELL DISTRIBUTION WIDTH 13.8 % (12.0-15.0); WHITE BLOOD COUNT 9.7 x10^3/uL (4.8-10.8)
--- NOTE | 2022-06-10 06:04 | PROVIDER PROGRESS NOTE ---
Subjective - Prog Note Date Prog Note Date: 06/10/22 Prog Note Time: 06:00 - Subjective Pt reports feeling: No change Subjective: No acute events overnight. Patient's remains uncomfortable but pain well controlled. Passing gas, but no BM. Frustrated by lack of progress. Objective - Vital Signs/Intake & Output Reviewed Vital Signs: Yes Vital Signs: Vital Signs x48h Temp Pulse Resp BP BP Pulse Ox 06/10/22 04:45 97.7 F 79 16 154/84 H 97 06/09/22 23:35 97.7 F 97 16 130/76 95 Intake & Output: Intake & Output 06/07/22 06/08/22 06/09/22 06/10/22 23:59 23:59 23:59 23:59 Intake Total 2019 2911 2133.333 100 Output Total 214 2300 2526 600 Balance -125 611 -392.667 -500 - Objective General Appearance: positive: No acute distress Eyes Bilateral: positive: Normal inspection Respiratory: positive: No respiratory distress, Breath sounds nml Cardiovascular: positive: Regular rate & rhythm Abdomen: positive: Nml bowel sounds (appro), No distention, Tenderness (Appropriate after surgery), Other (Incision clean, dry, intact. Steri-Strips in place with some old, soaked blood from surgery.). negative: Guarding, Rebound Back: negative: CVA tenderness (R), CVA tenderness (L) Neurologic/Psychiatric: positive: Oriented x3, Mood/affect nml - Lab Results Fish Bones: 06/10/22 04:44 06/10/22 04:44 Other Labs: Lab Results x24hrs 06/10/22 06/06/22 Range/Units 04:44 11:27 Magnesium 1.8 (1.7-2.8) mg/dL Assessment/Plan - Problem List (1) S/P abdominal hysterectomy Impression: -Pain control normal postoperatively. We will continue with pain medications. We will try to decrease opioid use as this may be contributing to her issues with a bowel movement. -Still concern for ileus, although still passing gas. Will get abdominal x-ray today. (2) Uterine fibroid Qualifiers: Uterine leiomyoma location: intramural and subserous Qualified Code(s): D25.1 - Intramural leiomyoma of uterus; D25.2 - Subserosal leiomyoma of uterus (3) Nausea Impression: Slightly better. Decreased vomiting, but very limited p.o. food intake. (4) Hot flashes Impression: Symptoms continue, can continue to monitor at this time. (6) Hypertension Impression: Blood pressure remains elevated, will restart home hydrochlorothiazide Qualifiers: Hypertension type: primary hypertension Qualified Code(s): I10 - Essential (primary) hypertension (7) Electrolyte abnormality Impression: -Replacing potassium, phosphorus. -Will replete as necessary. (8) Thrombocytopenia Impression: Continue drop in platelets. This may be normal postoperative, but will recheck this afternoon (9) Insomnia Impression: Can use Unisom for longer sleep today. Plan for after x-ray before p.m. labs. Qualifiers: Insomnia type: other insomnia Qualified Code(s): G47.09 - Other insomnia
[2022-06-10 06:10] LABS: BUN - BLOOD UREA NITROGEN 10 mg/dL (6-20); CALCIUM 8.1 mg/dL (8.5-10.3); CARBON DIOXIDE - CO2 26 mmol/L (21-32); CHLORIDE 103 mmol/L (101-111); CREATININE 0.8 mg/dL (0.4-1.0); GFR - MDRD 77 (>89); GLUCOSE 115 mg/dL (70-100); IONIZED CALCIUM IF INDICATED YES; PHOSPHORUS 1.7 mg/dL (2.5-4.6); POTASSIUM 3.5 mmol/L (3.5-5.0); SODIUM 138 mmol/L (135-145)
[2022-06-10 06:36] LABS: CALCIUM, IONIZED 1.06 mmol/L (1.15-1.33); VBG PH 7.424 (7.31-7.41)
[2022-06-10] MEDS ORDERED: POTASSIUM PHOSPHATE 15 MMOL in SODIUM CHLORIDE 0.9% 250 ML IV ONE (07:00)
[2022-06-10] MEDS: PROCHLORPERAZINE 10 MG/2 ML VIAL IVP PRN (07:44)
[2022-06-10] MEDS: SIMETHICONE CHEW 80 MG TABLET PO SCH ×2 (07:44→13:47)
[2022-06-10] MEDS ORDERED: DOXYLAMINE 25 MG TABLET PO PRN (08:00)
--- NOTE | 2022-06-10 08:43 | XRAY Report ---
PROCEDURE: Abdomen 2 View X-Ray INDICATIONS: Possible Postoperative Ileus TECHNIQUE: 2 views of the abdomen were acquired. COMPARISON: CT IVP 06/08/2022. FINDINGS: Surgical changes and devices: None. Bowel: No pneumoperitoneum. No dilated gas-filled loops of small or large bowel visualized. Colonic gas is present to the level of the rectum. Minimal small bowel air fluid levels present on the uprigh t view. Soft tissues: No suspicious abdominal calcifications. Bones: No suspicious bony abnormalities. IMPRESSION: No dilated gas-filled loops of small bowel or colon visualized. Reviewed by: Stanislav Hernández MD on 06/10/2022 8:42 AM PDT Approved by: Stanislav Hernández MD on 06/10/2022 8:42 AM PDT Station ID: [id number]
[2022-06-10] MEDS ORDERED: hydroCHLOROthiazide 12.5 MG CAPSULE PO SCH (09:00)
[2022-06-10] MEDS ORDERED: ESCITALOPRAM 10 MG TABLET PO SCH (09:00)
[2022-06-10] MEDS: GABAPENTIN 300 MG CAPSULE PO SCH (09:14)
[2022-06-10] MEDS: DOCUSATE SODIUM 100 MG CAPSULE PO SCH (09:15)
[2022-06-10] MEDS: lisinopriL 20 MG TABLET PO SCH (09:15)
[2022-06-10] MEDS ORDERED: polyethylene glycoL 3350 17 GM PACKET PO PRN (11:00)
[2022-06-10] MEDS ORDERED: SENNA 8.6 MG TABLET PO SCH (11:00)
--- NOTE | 2022-06-10 15:16 | DISCHARGE SUMMARY ---
"Discharge Summary Admit Date: 06/07/22 Discharge Date: 06/10/22 Discharging Provider: Carmelo Ramsey MD Code Status: Attempt Resuscitation Condition at Discharge: Good Discharge Disposition: 01 Home, Self Care - DIAGNOSES Admission Diagnoses: Uterine fibroids Abdominal pain Discharge Diagnoses with Status of Each Condition: Uterine fibroids: Status post abdominal hysterectomy Abdominal pain: Stable - HPI History of Present Illness: Patient doing much better this afternoon. Had a bowel movement, although small. Ambulating without difficulty. Abdomen appropriately sore. Anxious about not doing well, but bowel major feel better. Blood pressures slightly elevated, but pre-existing hypertension and blood pressure medications were held due to hypotension after surgery. Will likely need to take some time for medications get back into her system as lisinopril started yesterday and hydrochlorothiazide restarted today. - CONSULTS | PROCEDURES Consultations: Anesthesia Procedures: Abdominal hysterectomy, bilateral salpingectomy, cystoscopy, CT IVP - HOSPITAL COURSE Hospital Course: Patient is a 46-year-old G2, P2 who presented for planned total abdominal hysterectomy, bilateral salpingectomy and cystoscopy. Surgery was long and complicated due to the large fibroids obscuring surgical view. Cystoscopy at the end of the procedure showed good ureteral jet flow. There is some concern over a kinked ureter, and had a postoperative CT IVP which showed mostly intact ureters, but with likely peristalsis artifact obscuring the midportion of the right ureter and distal 1.8 cm of the left ureter. Patient had normal kidney function after the procedure and no hydronephrosis. Postoperative course was complicated by decreased bowel function, expected after long surgery. On post operative day 3, she had a bowel movement, although small and felt better. Patient was discharged in good condition with follow-up arranged in clinic. Should have renal ultrasound performed in 1 to 2 weeks. - ALLERGIES Allergies/Adverse Reactions: Allergies Allergy/AdvReac Type Severity Reaction Status Date / Time nortriptyline Allergy Unknown Verified 05/25/22 19:40 duloxetine [From Cymbalta] AdvReac Severe Unknown Verified 05/31/22 10:34 sertraline [From Zoloft] AdvReac Severe Unknown Verified 05/31/22 10:34 venlafaxine AdvReac Severe Unknown Verified 05/31/22 10:34 fluoxetine [From Prozac] AdvReac Intermediate Unknown Verified 08/30/22 10:34 - MEDICATIONS Home Medications: Ambulatory Orders Medication Instructions Recorded Confirmed Albuterol Sulfate [Proair Hfa 2 puffs INH Q4H PRN 05/26/22 05/31/22 Inhaler] Amitriptyline [Elavil] 10 mg PO QPM 05/26/22 05/31/22 Baclofen [Lioresal] 10 mg PO BID PRN 05/26/22 05/31/22 Escitalopram Oxalate 20 mg PO DAILY 05/26/22 06/07/22 Gabapentin [Neurontin] 300 mg PO TID 05/26/22 06/09/22 Lisinopril/Hydrochlorothiazide 2 tab PO DAILY 05/26/22 06/07/22 [Zestoretic 20-12.5 mg Tablet] Ondansetron Odt [Zofran Odt] 4 mg PO Q4HR PRN 05/26/22 05/31/22 Pantoprazole Sodium 20 mg PO DAILY PRN 05/26/22 05/31/22 tiZANidine [Zanaflex] 4 mg PO BID PRN 05/26/22 05/31/22 Cyclobenzaprine [Flexeril] 10 mg PO TID PRN 05/31/22 05/31/22 Acetaminophen [Acetaminophen Extra 1,000 mg PO Q8H PRN #60 tablet 06/10/22 Strength] Docusate Sodium 100Mg Capsule 100 - 200 mg PO BID PRN #60 cap 06/10/22 [Colace 100Mg Capsule] Ibuprofen [Motrin] 600 mg PO Q6H PRN #30 tab 06/10/22 Metoclopramide [Reglan] 10 mg PO Q6H PRN #20 tablet 06/10/22 oxyCODONE [Roxicodone] 2.5 - 5 mg PO Q4H PRN #24 tablet 06/10/22 - PHYSICAL EXAM AT DISCHARGE General Appearance: positive: No acute distress Eyes Bilateral: positive: Normal inspection Neck: positive: Nml inspection Respiratory: positive: No respiratory distress, Breath sounds nml Cardiovascular: positive: Regular rate & rhythm Peripheral Pulses: positive: 2+ Abdomen: positive: Nml bowel sounds, Tenderness (Appropriate post surgery) Back: negative: CVA tenderness (R), CVA tenderness (L) Extremities: positive: Full ROM Neurologic/Psychiatric: positive: Oriented x3, CN's nml (2-12), Motor nml, Sensation nml, Mood/affect nml - LABS Result Diagrams: 06/10/22 15:52 06/10/22 04:44 - DIAGNOSTIC IMAGING Diagnostic Imaging Results Comments: CT IVP Reviewed Abdomian radiograph reviewed. - FOLLOW UP Follow Up: With Carmelo Ramsey MD in one week. - TIME SPENT Time Spent in Discharge (Minutes): 40"
[2022-06-10] MEDS: ONDANSETRON ODT 4 MG TABLET TL PRN (15:53)
[2022-06-10 15:57] LABS: BASOPHILS # (AUTO) 0.1 10^3/uL (0.0-0.1); BASOPHILS % (AUTO) 0.6 %; EOSINOPHILS # (AUTO) 0.2 10^3/uL (0.0-0.7); EOSINOPHILS % (AUTO) 1.9 %; HCT - HEMATOCRIT 26.5 % (37.0-47.0); HGB - HEMOGLOBIN 8.9 g/dL (12.0-16.0); LYMPHOCYTES # (AUTO) 1.5 10^3/uL (1.5-3.5); LYMPHOCYTES % (AUTO) 12.9 %; MEAN CORPUSCULAR HEMOGLOBIN 31.3 pg (27.0-31.0); MEAN CORPUSCULAR HGB CONC 33.6 g/dL (32.0-36.0); MEAN CORPUSCULAR VOLUME 93.3 fL (81.0-99.0); MEAN PLATELET VOLUME 12.6 fL (7.9-10.8); MONOCYTES # (AUTO) 0.5 10^3/uL (0.0-1.0); MONOCYTES % (AUTO) 4.4 %; NEUTROPHILS % (AUTO) 78.5 %; NRBC ABSOLUTE COUNT (AUTO) 0.04 x10^3/uL; NUCLEATED RED BLOOD CELLS AUTO 0.4 /100WBC; PLT - PLATELET COUNT 72 10^3/uL (130-450); RED BLOOD COUNT 2.84 10^6/uL (4.20-5.40); RED CELL DISTRIBUTION WIDTH 13.9 % (12.0-15.0); WHITE BLOOD COUNT 11.4 x10^3/uL (4.8-10.8)
--- NOTE | 2022-06-10 16:16 | Discharge Plan ---
Discharge Plan Problem Reviewed?: Yes Disposition: Home, Self Care Condition: Good Prescriptions: Acetaminophen [Acetaminophen Extra Strength] 1,000 mg PO Q8H PRN #60 tablet PRN Reason: Pain Docusate Sodium 100Mg Capsule [Colace 100Mg Capsule] 100 - 200 mg PO BID PRN #60 cap PRN Reason: Constipation Ibuprofen [Motrin] 600 mg PO Q6H PRN #30 tab PRN Reason: Pain Metoclopramide [Reglan] 10 mg PO Q6H PRN #20 tablet PRN Reason: Nausea / Vomiting oxyCODONE [Roxicodone] 2.5 - 5 mg PO Q4H PRN #24 tablet PRN Reason: Severe Pain Activity Restrictions: Additional Comments Shower Restrictions: No Driving Restrictions: Yes (For two weeks and while taking opioid medications) Weight Bearing: Full Weight Instruction Topics: Hysterectomy Recovery, Hysterectomy Abdominal Dc No Smoking: If you smoke, Please STOP! Call for help. Follow-up with: Carmelo Ramsey MD [Provider Admit Priv/Credential] -
[2022-06-10] MEDS ORDERED: LABETALOL 100 MG TABLET PO SCH (17:05)
[2022-06-10 17:49] VITALS: BP 174/94
[2022-06-11] MEDS ORDERED: LABETALOL 100 MG TABLET PO SCH (09:00)
== END 2022-06-10 17:36 | disposition home or self-care (01) | DRG 742 ==
LOC: MS2 08:57
PROVIDERS: ADMIT Obstetrics & Gynecology; ATTEND Obstetrics & Gynecology
PROC: 0UT70ZZ Resection of Bilateral Fallopian Tubes, Open Approach (ICD-10-PCS; 2022-06-07)
PROC: 0TJB8ZZ Inspection of Bladder, Via Natural or Artificial Opening Endoscopic (ICD-10-PCS; 2022-06-07)
PROC: 0UT90ZZ Resection of Uterus, Open Approach (ICD-10-PCS; principal; 2022-06-07 10:15)
DX: D25.2 Subserosal leiomyoma of uterus (principal); D62 Acute posthemorrhagic anemia; D25.1 Intramural leiomyoma of uterus; I10 Essential (primary) hypertension; I95.81 Postprocedural hypotension; E87.8 Other disorders of electrolyte and fluid balance, not elsewhere classified; G47.00 Insomnia, unspecified; D69.6 Thrombocytopenia, unspecified; F17.290 Nicotine dependence, other tobacco product, uncomplicated; R11.0 Nausea
CPT/HCPCS: 36415; 74019; 74178; 80048; 80053; 82310; 82330; 83735; 84100; 85014; 85018; 85025; 86850; 86900; 86901; 86920; 93005; A9270; J0131; J0690; J3490; J7040; J7120; Q0162; Q9967

== ENCOUNTER 2022-06-17 18:36 | Outpatient (CLI) | payer MEDICAID ==
--- NOTE | 2022-06-18 02:24 | Ultrasound Report ---
PROCEDURE: Retroperitoneal INDICATIONS: ABN KIDNEY FUNCTION TEST TECHNIQUE: Real-time scanning was performed of the kidneys and bladder, with image documentation. COMPARISON: CT IVP 06/08/2022. FINDINGS: Kidneys: Right kidney measures 10 cm long; left kidney measures 11.1 cm long. Right renal cortical thickness is 0.5 cm; left renal cortical thickness is 0.8 cm. No solid masses, hydronephrosis, or sh adowing renal stones. Bladder: Initial bladder volume is 42 mL. Patient was unable to void. Pre-void images demonstrate no intraluminal masses or stones. Bilateral ureteral jets are noted with color Doppler interrogation. Miscellaneous: No free abdominal fluid. IMPRESSION: 1. No evidence of hydronephrosis. 2. Bilateral renal cortical thinning. Reviewed by: Gustavo Mckinley MD on 06/18/2022 2:22 AM PDT Approved by: Gustavo Mckinley MD on 06/18/2022 2:22 AM PDT Station ID: [id number]
== END 2022-06-17 18:37 | disposition home or self-care (01) ==
LOC: DI 18:36
PROVIDERS: ATTEND Obstetrics & Gynecology
DX: R94.4 Abnormal results of kidney function studies (principal)

== ENCOUNTER 2022-07-13 13:20 | Outpatient (CLI) | payer MEDICAID ==
--- NOTE | 2022-07-14 09:03 | MRI Report ---
PROCEDURE: Cervical Spine W/O INDICATIONS: CHRONIC CERVICAL SPINE MYELOPATHY TECHNIQUE: Noncontrast sagittal T1 spin echo and T2 fast spin echo, sagittal STIR, foraminal oblique sagittal T2 fast spin echo, and axial gradient echo or T2 fast spin echo through the cervical spine. COMPARISON: None. FINDINGS: Image quality: Excellent. Alignment and Curvature: There is normal bony alignment. Bone Marrow: Marrow demonstrates normal overall signal. Spinal Cord: Visualized spinal cord has normal size and signal. No cerebellar tonsillar herniation. Paraspinous Soft Tissues: No paravertebral masses. Prevertebral soft tissues are normal in thicknes s. C2-C3: No disc bulge. The foramina and central canal are patent. C3-C4: Mild diffuse disc bulge with mild bilateral foraminal narrowing. No central canal stenosis. C4-C5: Mild diffuse disc bulge and disc osteophytes. Moderate left and mild right foraminal stenosis . The central canal has mild stenosis. C5-C6: Mild diffuse disc bulge and disc osteophytes. Moderate bilateral foraminal stenosis. Moderate central canal stenosis. C6-C7: Mild diffuse disc bulge causes mild bilateral foraminal stenosis. There is moderate central c anal stenosis. C7-T1: Postoperative changes of ACDF at C7-T1 the foramina and central canal are patent. IMPRESSION: 1. Postoperative changes of ACDF at C7-T1. Otherwise no significant interval change. 2. No focal protrusion or extrusion. 3. Multilevel to moderate central canal stenosis as above. Reviewed by: Jay Severino on 07/14/2022 9:02 AM PDT Approved by: Jay Severino on 07/14/2022 9:02 AM PDT Station ID: [id number]
== END 2022-07-13 13:21 | disposition home or self-care (01) ==
LOC: DI 13:20
PROVIDERS: ATTEND Nurse Practitioner Family
DX: M50.31 Other cervical disc degeneration, high cervical region (principal); M48.02 Spinal stenosis, cervical region; Z98.1 Arthrodesis status

== ENCOUNTER 2022-08-03 12:59 | Outpatient (CLI) | payer MEDICAID ==
--- NOTE | 2022-08-04 10:28 | Mammography Report ---
BILATERAL DIGITAL SCREENING MAMMOGRAM 3D/2D: 08/03/2022 CLINICAL: Routine screening. Comparison is made to exam dated: 08/05/2014 mammogram - [facility]. There are scattered areas of fibroglandular density in both breasts (category b / 25%-50% glandular t issue). No significant masses, calcifications, or other findings are seen in either breast. There has been no significant interval change. IMPRESSION: NEGATIVE There is no mammographic evidence of malignancy. A 1 year screening mammogram is recommended. Based on the Tyrer Cuzick model (a risk assessment model) the patients lifetime risk is 8.7% and her 10 year risk is 1.8%. According to the ACR, ACS, and NCCN guidelines, an annual breast MRI exam fanny g with mammogram is recommended if the patients lifetime risk is 20% or greater. This exam was interpreted at Station ID: [id number]. NOTE: For mammograms, a report in lay terms will be sent to the patient. Approximately 15% of breast malignancies will not be visualized mammographically. In the management of a palpable breast mass, a negative mammogram must not discourage biopsy of a clinically suspicious lesion. Electronically Signed By: Tiana barboza/trista:08/03/2022 16:51:31 ACR BI-RADS Category 1: Negative 3341F PARENCHYMAL PATTERN: (A) - The breast(s) demonstrate(s) scattered fibroglandular densities. BI-RADS CATEGORY: (1) - 1 RECOMMENDATION: (ANNUAL) - Recommend routine annual screening mammography. [id number] 1 year screening LATERALITY: (B)
== END 2022-08-03 13:00 | disposition home or self-care (01) ==
LOC: DI.S 12:59
PROVIDERS: ATTEND Obstetrics & Gynecology
DX: Z12.31 Encounter for screening mammogram for malignant neoplasm of breast (principal)

== ENCOUNTER 2022-10-14 14:46 | Emergency (ER) | payer MEDICAID ==
--- OUTSIDE RECORDS SUMMARY | 2022-10-14 15:44 | EXTERNAL MEDICAL SUMMARY RPT | Continuity of Care Document ---
:1975 Author Organization [facility] Address [address] [place] [address] Phone Care Team Providers Name Role Phone Unavailable Unavailable Unavailable Maria Elena Mays Unavailable Unavailable Allergies No information. Encounters No information. Functional Status No information. Immunizations No information. Medications date description facility 2022-07-19 00:00 ondansetron [facility] 2022-07-20 00:00 ondansetron [facility] 2022-08-04 00:00 ondansetron [facility] 2022-08-31 00:00 ondansetron [facility] 2022-09-01 00:00 ondansetron [facility] 2022-09-02 00:00 ondansetron [facility] 2022-09-14 00:00 ondansetron [facility] 2022-07-19 00:00 hydrocodone-acetaminophen [facility] 2022-07-20 00:00 hydrocodone-acetaminophen [facility] 2022-08-04 00:00 hydrocodone-acetaminophen [facility] 2022-08-31 00:00 hydrocodone-acetaminophen [facility] 2022-09-01 00:00 hydrocodone-acetaminophen [facility] 2022-09-02 00:00 hydrocodone-acetaminophen [facility] [place] 2022-09-14 00:00 hydrocodone-acetaminophen [facility] 2022-07-19 00:00 ondansetron [facility] 2022-07-20 00:00 ondansetron [facility] 2022-08-04 00:00 ondansetron [facility] 2022-08-31 00:00 ondansetron [facility] 2022-09-01 00:00 ondansetron [facility] 2022-09-02 00:00 ondansetron [facility] [place] 2022-09-14 00:00 ondansetron [facility] [place] 2022-09-01 00:00 fluconazole [facility] 2022-09-01 00:00 fluconazole [facility] 2022-09-01 00:00 trazodone [facility] [place] 2022-09-01 00:00 gabapentin [facility] 2022-07-19 00:00 losartan [facility] 2022-07-20 00:00 losartan [facility] 2022-08-04 00:00 losartan [facility] 2022-08-31 00:00 losartan [facility] 2022-09-01 00:00 losartan [facility] [place] 2022-09-02 00:00 losartan [facility] 2022-09-14 00:00 losartan [facility] 2022-09-01 00:00 fluconazole [facility] [place] 2022-07-19 00:00 losartan [facility] 2022-07-20 00:00 losartan [facility] [place] 2022-08-04 00:00 losartan [facility] 2022-08-31 00:00 losartan [facility] [place] 2022-09-01 00:00 losartan [facility] 2022-09-02 00:00 losartan [facility] [place] 2022-09-14 00:00 losartan [facility] 2022-09-01 00:00 gabapentin [facility] 2022-09-01 00:00 tizanidine [facility] 2022-07-19 00:00 ondansetron [facility] [place] 2022-07-20 00:00 ondansetron [facility] [place] 2022-08-04 00:00 ondansetron [facility] [place] 2022-08-31 00:00 ondansetron [facility] [place] 2022-09-01 00:00 ondansetron [facility] [place] 2022-09-02 00:00 ondansetron [facility] [place] 2022-09-14 00:00 ondansetron [facility] [place] 2022-09-01 00:00 trazodone [facility] 2022-09-01 00:00 trazodone [facility] [place] 2022-09-01 00:00 fluconazole [facility] 2022-09-01 00:00 gabapentin [facility] 2022-09-01 00:00 tizanidine [facility] 2022-07-19 00:00 ondansetron [facility] [place] 2022-07-20 00:00 ondansetron [facility] [place] 2022-08-04 00:00 ondansetron [facility] [place] 2022-08-31 00:00 ondansetron [facility] [place] 2022-09-01 00:00 ondansetron [facility] [place] 2022-09-02 00:00 ondansetron [facility] [place] 2022-09-14 00:00 ondansetron [facility] [place] 2022-07-19 00:00 hydrocodone-acetaminophen [facility] [place] 2022-07-20 00:00 hydrocodone-acetaminophen [facility] [place] 2022-08-04 00:00 hydrocodone-acetaminophen [facility] [place] 2022-08-31 00:00 hydrocodone-acetaminophen [facility] [place] 2022-09-01 00:00 hydrocodone-acetaminophen [facility] [place] 2022-09-02 00:00 hydrocodone-acetaminophen [facility] [place] 2022-09-14 00:00 hydrocodone-acetaminophen [facility] [place] 2022-07-19 00:00 hydrocodone-acetaminophen [facility] 2022-07-20 00:00 hydrocodone-acetaminophen [facility] [place] 2022-08-04 00:00 hydrocodone-acetaminophen [facility] [place] 2022-08-31 00:00 hydrocodone-acetaminophen [facility] [place] 2022-09-01 00:00 hydrocodone-acetaminophen [facility] [place] 2022-09-02 00:00 hydrocodone-acetaminophen [facility] [place] 2022-09-14 00:00 hydrocodone-acetaminophen [facility] [place] 2022-07-19 00:00 losartan [facility] [place] 2022-07-20 00:00 losartan [facility] [place] 2022-08-04 00:00 losartan [facility] [place] 2022-08-31 00:00 losartan [facility] [place] 2022-09-01 00:00 losartan [facility] [place] 2022-09-02 00:00 losartan [facility] [place] 2022-09-14 00:00 losartan [facility] [place] 2022-09-01 00:00 gabapentin [facility] [place] 2022-09-01 00:00 tizanidine [facility] [place] 2022-09-01 00:00 trazodone [facility] [place] 2022-07-19 00:00 hydrocodone-acetaminophen [facility] [place] 2022-07-20 00:00 hydrocodone-acetaminophen [facility] [place] 2022-08-04 00:00 hydrocodone-acetaminophen [facility] [place] 2022-08-31 00:00 hydrocodone-acetaminophen [facility] [place] 2022-09-01 00:00 hydrocodone-acetaminophen [facility] [place] 2022-09-02 00:00 hydrocodone-acetaminophen [facility] [place] 2022-09-14 00:00 hydrocodone-acetaminophen [facility] [place] 2022-09-01 00:00 tizanidine [facility] [place] 2022-07-19 00:00 losartan [facility] [place] 2022-07-20 00:00 losartan [facility] [place] 2022-08-04 00:00 losartan [facility] 2022-08-31 00:00 losartan [facility] [place] 2022-09-01 00:00 losartan [facility] [place] 2022-09-02 00:00 losartan [facility] 2022-09-14 00:00 losartan [facility] Problems date description facility 2022-07-19 00:00 Anxiety state, unspecified [facility] 2022-07-19 00:00 Knee pain [facility] 2022-07-19 00:00 Eczema [facility] 2022-07-19 00:00 Femoral acetabular impingement Walk-In Clinic [facility] 2022-07-19 00:00 Anxiety Walk-In [facility] 2022-07-19 00:00 Arthritis of hip Walk-In [facility] 2022-07-19 00:00 Contact dermatitis and other Walk-In [facility] Primary Care & eczema, unspecified cause Ancillary Serv [facility] 2022-07-19 00:00 Arthropathy unspecified, involving [facility]-In [facility] Primary Care & pelvic region and thigh [facility] Serv[facility] 2022-07-19 00:00 Pain in joint involving lower leg Walk -In [facility] 2022-07-19 00:00 Other specified disorders of joint [facility] Primary Care & of pelvic region and thigh Ancillary Ser v[facility] 2022-07-19 00:00 Chronic pain [facility] 2022-07-19 00:00 Anxiety disorder, unspecified [facility] [place] 2022-07-19 00:00 Other chronic pain [facility] [place] 2022-07-19 00:00 Dermatitis, unspecified [facility] [place] 2022-07-19 00:00 Bilateral primary osteoarthritis of Wa lk-In Clinic Primary Care & hip [facility] 2022-07-19 00:00 Pain in unspecified knee [facility]:00 Other specified joint disorders, [facility]- In [facility] Primary Care & unspecified hip [facility] 2022-07-20 00:00 Screening mammography Walk-In Clinic [facility] 2022-07-20 00:00 Anxiety state, unspecified Walk-In Cli [facility] 2022-07-20 00:00 Knee pain Walk[facility]In [facility] 2022-07-20 00:00 Eczema Walk-In [facility] 2022-07-20 00:00 Femoral acetabular impingement Walk-In Clinic [facility] 2022-07-20 00:00 Anxiety Walk-In [facility] 2022-07-20 00:00 Arthritis of hip Walk-In [facility] 2022-07-20 00:00 Contact dermatitis and other Walk-In [facility] Primary Care & eczema, unspecified cause [facility] Serv [facility] 2022-07-20 00:00 Arthropathy unspecified, involving [facility] Primary Care & pelvic region and thigh [facility] 2022-07-20 00:00 Pain in joint involving lower leg Walk -In [facility] Primary [facility] Services [facility] 2022-07-20 00:00 Other specified disorders of joint [facility] Primary Care & of pelvic region and thigh Ancillary Ser vices [facility] 2022-07-20 00:00 Chronic pain [facility] 00:00 Anxiety disorder, unspecified [facility] 2022-07-20 00:00 Other chronic pain [facility] 2022-07-20 00:00 Dermatitis, unspecified [facility] [place] 2022-07-20 00:00 Bilateral primary osteoarthritis of Wa lk-In Clinic Primary Care & hip [facility] 2022-07-20 00:00 Pain in unspecified knee Walk[facility]In Cl[facility] 2022-07-20 00:00 Other specified joint disorders, Walk- In Clinic Primary Care & unspecified hip Ancillary Services [facility] 2022-07-20 00:00 Other screening mammogram Walk-In Clin ic [facility] 2022-07-20 00:00 Encounter for screening mammogram Walk -In Clinic Primary Care & for malignant neoplasm of breast [facility]illa [facility] 2022-08-04 00:00 Anxiety state, unspecified Walk-In [facility] 2022-08-04 00:00 Knee pain Walk-In [facility] 2022-08-04 00:00 Eczema Walk-In [facility] 2022-08-04 00:00 Femoral acetabular impingement Walk-In [facility] 2022-08-04 00:00 Anxiety [facility] [place] 2022-08-04 00:00 Arthritis of hip Walk-In [facility] 2022-08-04 00:00 Contact dermatitis and other Walk-In [facility] Primary Care & eczema, unspecified cause [facility] Serv [facility] 2022-08-04 00:00 Arthropathy unspecified, involving [facility] Primary Care & pelvic region and thigh [facility] 2022-08-04 00:00 Pain in joint involving lower leg Walk -[facility] [place] 2022-08-04 00:00 Other specified disorders of joint [facility] Primary Care & of pelvic region and thigh Ancillary Ser v[facility] 2022-08-04 00:00 Chronic pain [facility] [place] 2022-08-04 00:00 Anxiety disorder, unspecified [facility] 2022-08-04 00:00 Other chronic pain [facility] [place] 2022-08-04 00:00 Dermatitis, unspecified [facility] 2022-08-04 00:00 Bilateral primary osteoarthritis of Wa lk-In Clinic Primary Care & hip [facility] 2022-08-04 00:00 Pain in unspecified knee [facility] 2022-08-04 00:00 Other specified joint disorders, Walk- In Clinic Primary Care & unspecified hip [facility] Services [facility] 2022-08-24 00:00 Cervical arthrodesis Walk-In [facility] Pr im[facility] Care & [facility]illary Services [facility] 2022-08-24 00:00 Postsurgical arthrodesis status Walk-I n [facility] 2022-08-24 00:00 Arthrodesis status Walk-In [facility] 2022-08-31 00:00 Anxiety state, unspecified Walk[facility]In [facility] 2022-08-31 00:00 Knee pain Walk-In [facility] 2022-08-31 00:00 Eczema Walk-In [facility] 2022-08-31 00:00 Femoral acetabular impingement Walk[facility]In [facility] 2022-08-31 00:00 Anxiety Walk-In [facility] 2022-08-31 00:00 Arthritis of hip [facility]-In [facility] 2022-08-31 00:00 [facility], unspecified cause [facility] Serv [facility] 2022-08-31 00:00 Arthropathy unspecified, involving [facility] Primary Care & pelvic region and thigh [facility] 2022-08-31 00:00 Pain in joint involving lower leg Walk -In [facility] 2022-08-31 00:00 Other specified disorders of joint [facility] Primary Care & of pelvic region and thigh Ancillary [facility] v[facility] 2022-08-31 00:00 Chronic pain Walk[facility]In [facility] 2022-08-31 00:00 Anxiety disorder, unspecified [facility] 2022-08-31 00:00 Other chronic pain [facility] 2022-08-31 00:00 Dermatitis, unspecified [facility] 2022-08-31 00:00 Bilateral primary osteoarthritis of Wa lk-In Clinic Primary Care & hip [facility] 2022-08-31 00:00 Pain in unspecified knee [facility] 2022-08-31 00:00 Other specified joint disorders, Walk- In Clinic Primary Care & unspecified hip [facility] Services [facility] 2022-09-01 00:00 Thyroid disorder screening Walk-In [facility] 2022-09-01 00:00 Hyperlipidemia screening [facility] 2022-09-01 00:00 Perianal dermatitis Walk-In Clinic [facility] Care & Ancillary Services [facility] 2022-09-01 00:00 Anxiety state, unspecified Walk-In [facility] 2022-09-01 00:00 Knee pain Walk-In [facility] 2022-09-01 00:00 Eczema Walk-In [facility] 2022-09-01 00:00 Femoral acetabular impingement Walk-In [facility] 2022-09-01 00:00 Spasm Walk-In [facility] 2022-09-01 00:00 Anxiety Walk-In [facility] 2022-09-01 00:00 Arthritis of hip Walk-In [facility] 2022-09-01 00:00 Contact dermatitis and other Walk-In C l[facility] Primary Care & eczema, unspecified cause Ancillary Serv ices [facility] 2022-09-01 00:00 Arthropathy unspecified, involving [facility] Primary Care & pelvic region and thigh [facility] 2022-09-01 00:00 Pain in joint involving lower leg Walk -In [facility] [place] 2022-09-01 00:00 Other specified disorders of joint [facility] Primary Care & of pelvic region and thigh Ancillary Ser vices [facility] 2022-09-01 00:00 Spasm of muscle Walk-In [facility] 2022-09-01 00:00 Chronic pain Walk-In [facility] 2022-09-01 00:00 Anxiety disorder, unspecified [facility] [place] 2022-09-01 00:00 Other chronic pain [facility]:00 Dermatitis, unspecified [facility]In [facility] 2022-09-01 00:00 Bilateral primary osteoarthritis of Wa lk-In Clinic Primary Care & hip Ancillary Services [facility] [place] 2022-09-01 00:00 Pain in unspecified knee [facility]In [facility] & [facility] [place] 2022-09-01 00:00 Other specified joint disorders, [facility]- In [facility]:00 Other muscle spasm Walk[facility]In [facility] 2022-09-01 00:00 Rash and other nonspecific skin Walk-I n Clinic Primary Care & eruption [facility] 2022-09-01 00:00 Screening for thyroid disorders Walk-I n [facility] Primary [facility] & [facility] Services [facility] 2022-09-01 00:00 Screening for lipoid disorders Walk-In [facility] & [facility] Services [facility] 2022-09-01 00:00 Encounter for screening for lipoid [facility] Primary Care & disorders [facility]illary Services [facility] 2022-09-01 00:00 Encounter for screening for other Walk -In Clinic Primary Care & suspected endocrine disorder Ancillary S mynor Chamorro 2022-09-02 00:00 Anxiety state, unspecified Walk-In Cli [facility] Primary Care & Ancillary Services [facility] 2022-09-02 00:00 Knee pain Walk-In Clinic Prim [facility] Care & [facility] Services [facility] 2022-09-02 00:00 Eczema Walk-In Clinic Prim [facility] Care & Anc[facility] Services [facility] 2022-09-02 00:00 Femoral acetabular impingement Walk-In Clinic Primary Care & Ancillary Services [facility] 2022-09-02 00:00 Anxiety Walk-In Clinic [facility] Care [facility] Anc[facility] Services [facility] 2022-09-02 00:00 Arthritis of hip Walk-In Clinic [facility] Care & Anc[facility] Services [facility] 2022-09-02 00:00 Contact dermatitis and other Walk-In [facility] Primary Care & eczema, unspecified cause Ancillary Serv ices [place] 2022-09-02 00:00 Arthropathy unspecified, involving [facility] Primary Care & pelvic region and thigh Ancillary Serv[facility] 2022-09-02 00:00 Pain in joint involving lower leg Walk -In Clinic Primary Care & Ancillary Services [facility] 2022-09-02 00:00 Other specified disorders of joint [facility] Primary Care & of pelvic region and thigh Ancillary Ser vices [facility] 2022-09-02 00:00 Chronic pain Walk-In Clinic [facility] Care & Anc[facility] Services [facility] 2022-09-02 00:00 Anxiety disorder, unspecified Walk-In Clinic Primary Care & Ancillary Services [facility] 2022-09-02 00:00 Other chronic pain Walk-In Clinic Prim [facility] Care & [facility] Services [facility] 2022-09-02 00:00 Dermatitis, unspecified Walk-In Clinic Primary Care & Ancillary Services [facility] 2022-09-02 00:00 Bilateral primary osteoarthritis of Wa lk-In Clinic Primary Care & hip Ancillary Services [facility] 2022-09-02 00:00 Pain in unspecified knee Walk-In Clini Primary Care & Ancillary Services [facility] 2022-09-02 00:00 Other specified joint disorders, Walk- In Clinic Primary Care & unspecified hip Ancillary Services [facility] 2022-09-14 00:00 Anxiety state, unspecified Walk-In [facility] Primary Care & Ancillary Services [facility] 2022-09-14 00:00 Knee pain Walk-In Clinic Prim [facility] Care & Ancillary Services [facility] 2022-09-14 00:00 Eczema Walk-In Clinic [facility] Care & [facility] Services [facility] 2022-09-14 00:00 Femoral acetabular impingement [facility] [place] 2022-09-14 00:00 Anxiety [facility] [place] 2022-09-14 00:00 Arthritis of hip [facility] [place] [facility] [place] 2022-09-14 00:00 Contact dermatitis and other [facility] & eczema, unspecified cause [facility] Serv [facility] [place] 2022-09-14 00:00 Arthropathy unspecified, involving [facility] pelvic region and thigh [facility] [place] 2022-09-14 00:00 Pain in joint involving lower leg [facility] [place] 2022-09-14 00:00 Other specified disorders of joint [facility] & of pelvic region and thigh [facility] [place] 2022-09-14 00:00 Chronic pain [facility] [place] 2022-09-14 00:00 Anxiety disorder, unspecified [facility] [place] 2022-09-14 00:00 Other chronic pain [facility] [place] 2022-09-14 00:00 Dermatitis, unspecified [facility] [place] 2022-09-14 00:00 Bilateral primary osteoarthritis of [facility] [place] 2022-09-14 00:00 Pain in unspecified knee [facility] [place] 2022-09-14 00:00 Other specified joint disorders, [facility] & unspecified hip [facility] [place] Procedures date description facility 2022-09-01 00:00 Visit Code Hold [facility] Results/Labs test date author facility value unit interpret ation Result panel 1 (unknown) (no date) (unknown) [facility] (no value) (units [facility]own[facility] Result panel 2 (unknown) (no date) (unknown) [facility] (no value) (units [facility] Result panel 3 (unknown) (no date) (unknown) [facility] (no value) (units ([facility] Result panel 4 (unknown) (no date) (unknown) [facility] (no value) (units [facility] Result panel 5 (unknown) (no date) (unknown) [facility] (no value) (units ([facility]own[facility] Result panel 6 (unknown) (no date) (unknown) [facility] (no value) (units ([facility] Result panel 7 (unknown) (no date) (unknown) [facility] (no value) (units ([facility] nown[facility] unknown[facility] Social History date description facility 2022-09-01 00:00 Former smoker [facility] Vital Signs date measurement value units 2022-07-20 00:00 BMI 36.33 kg/m2 2022-07-20 00:00 BP_diastolic 84 mmHg 2022-07-20 00:00 BP_systolic 146 mmHg 2022-07-20 00:00 height_metric 154.94 cm 2022-07-20 00:00 height_standard 61 in 2022-07-20 00:00 temperature_metric 36.5 C 2022-07-20 00:00 temperature_standard 97.7 F 2022-07-20 00:00 weight_metric 86.91 kg 2022-07-20 00:00 weight_standard 191.6 lb 2022-09-01 00:00 BMI 37.74 kg/m2 2022-09-01 00:00 BP_diastolic 93 mmHg 2022-09-01 00:00 BP_systolic 153 mmHg 2022-09-01 00:00 heart_rate 75 /min 2022-09-01 00:00 height_metric 154.94 cm 2022-09-01 00:00 height_standard 61 in 2022-09-01 00:00 respiration_rate 14 /min 2022-09-01 00:00 temperature_metric 36.39 C 2022-09-01 00:00 temperature_standard 97.5 F 2022-09-01 00:00 weight_metric 90.26 kg 2022-09-01 00:00 weight_standard 199 lb
[2022-10-14 17:06] VITALS: BP 161/91
== END 2022-10-14 19:09 | disposition left against medical advice (07) ==
LOC: ED 14:46
DX: Z53.29 Procedure and treatment not carried out because of patient's decision for other reasons (principal)

== ENCOUNTER 2022-10-18 08:00 | Outpatient (CLI) | payer MEDICAID | END 2022-10-18 23:59 | disposition home or self-care (01) | LOC: LAB 08:00 | PROVIDERS: ATTEND Obstetrics & Gynecology | DX: N64.52 Nipple discharge (principal) | CPT/HCPCS: 87070; 87205 ==

== ENCOUNTER 2022-10-18 14:52 | Outpatient (CLI) | payer MEDICAID ==
--- NOTE | 2022-10-18 17:30 | XRAY Report ---
PROCEDURE: Cervical Spine Complete INDICATIONS: BACK PX TECHNIQUE: 8 views of the cervical spine acquired. COMPARISON: MRI of cervical spine dated 07/13/2022 and cervical spine radiograph dated 02/07/2022. FINDINGS: Bones: No fractures or dislocations to the C7-T1 level. Again noted is prior anterior fusion at C7- T1 level. Surgical hardware position is unchanged. No evidence of hardware loosening or failure. Dege nerative endplate changes are noted throughout cervical spine more notably at C6-7 and C5-6 levels. O blique images demonstrate no significant bony foraminal stenoses. Lateral flexion and extension view s shows decreased range of motion with preserved cervical spine alignment. Soft tissues: No prevertebral soft tissue swelling. IMPRESSION: 1. Stable post fusion changes at C7-T1 level. No fracture or dislocation. No gross hardware loosening or failure. 2. Degenerative disc disease throughout cervical spine. No significant bony foraminal stenosis. Decre ased range of motion on lateral flexion and extension views with preserved cervical spine alignment. Reviewed by: Yavn Sunshine MD on 10/18/2022 5:28 PM PST Approved by: Yvan Sunshine MD on 10/18/2022 5:28 PM PST Station ID: [id number]
== END 2022-10-18 14:53 | disposition home or self-care (01) ==
LOC: DI 14:52
PROVIDERS: ATTEND Nurse Practitioner Adult Health
DX: Z98.1 Arthrodesis status (principal); M50.322 Other cervical disc degeneration at C5-C6 level; N64.52 Nipple discharge
CPT/HCPCS: 87070; 87205

== ENCOUNTER 2022-10-26 12:46 | Outpatient (CLI) | payer MEDICAID ==
--- NOTE | 2022-10-27 09:42 | Ultrasound Report ---
PROCEDURE: Abdomen Limited INDICATIONS: LLQ ABD PAIN TECHNIQUE: Real-time focused scanning was performed of the abdomen at the areas of pain in the right and left lo wer quadrant anterior abdominal wall, with image documentation. COMPARISON: None. FINDINGS: No evidence of hernia, mass, or fluid collection in the areas of concern. IMPRESSION: No hernia or fluid collection demonstrated. Reviewed by: Johnie Ferrer MD on 10/27/2022 9:41 AM PST Approved by: Johnie Ferrer MD on 10/27/2022 9:41 AM PST Station ID: [id number]
== END 2022-10-26 12:47 | disposition home or self-care (01) ==
LOC: DI 12:46
PROVIDERS: ATTEND Obstetrics & Gynecology
DX: R10.32 Left lower quadrant pain (principal)

== ENCOUNTER 2022-10-26 13:19 | Emergency (ER) | payer MEDICAID ==
--- OUTSIDE RECORDS SUMMARY | 2022-10-26 13:41 | EXTERNAL MEDICAL SUMMARY RPT | Continuity of Care Document ---
:1975 Author Organization [facility] Address [address] [place] [address] Phone Care Team Providers Name Role Phone Unavailable Unavailable Unavailable Maria Elena Mays Unavailable Unavailable Allergies No information. Encounters No information. Functional Status No information. Immunizations No information. Medications date description facility 2022-08-04 00:00 ondansetron [facility] 2022-08-31 00:00 ondansetron [facility] 2022-09-01 00:00 ondansetron [facility] E[facility] 2022-09-02 00:00 ondansetron [facility] 2022-09-14 00:00 ondansetron [facility] 2022-10-19 00:00 ondansetron [facility] 2022-10-20 00:00 ondansetron [facility] 2022-10-21 00:00 ondansetron [facility] p[facility] 2022-10-24 00:00 ondansetron [facility] [place] 2022-10-26 00:00 ondansetron [facility] 2022-08-04 00:00 hydrocodone-acetaminophen Walk[facility] 2022-08-31 00:00 hydrocodone-acetaminophen [facility] [place] 2022-09-01 00:00 hydrocodone-acetaminophen [facility] 2022-09-02 00:00 hydrocodone-acetaminophen [facility] [place] 2022-09-14 00:00 hydrocodone-acetaminophen Walk[facility] [place] 2022-10-19 00:00 hydrocodone-acetaminophen Walk[facility] [place] 2022-10-20 00:00 hydrocodone-acetaminophen [facility] [place] 2022-10-21 00:00 hydrocodone-acetaminophen [facility] [place] 2022-10-24 00:00 hydrocodone-acetaminophen Walk[facility] [place] 2022-10-26 00:00 hydrocodone-acetaminophen Walk-In Clin ic Primary Care [...] [facility] [place] 2022-10-19 00:00 ondansetron [facility] [place] 2022-10-20 00:00 ondansetron [facility] [place] 2022-10-21 00:00 ondansetron [facility] [place] 2022-10-24 00:00 ondansetron [facility] [place] 2022-10-26 00:00 ondansetron Walk-In [facility] Prim [facility] [...] [facility] [place] 2022-10-19 00:00 losartan [facility] [place] 2022-10-20 00:00 losartan [facility] [place] 2022-10-21 00:00 losartan [facility] [place] 2022-10-24 00:00 losartan [facility] [place] 2022-10-26 00:00 losartan Walk-In Clinic Prim [facility] Care [...] [facility] [place] 2022-10-19 00:00 losartan [facility] [place] 2022-10-20 00:00 losartan [facility] [place] 2022-10-21 00:00 losartan [facility] [place] 2022-10-24 00:00 losartan [facility] [place] 2022-10-26 00:00 losartan Walk-In Clinic Prim [facility] Care [...] [facility] [place] 2022-10-19 00:00 ondansetron Walk[facility] [place] 2022-10-20 00:00 ondansetron [facility] [place] 2022-10-21 00:00 ondansetron [facility] [place] 2022-10-24 00:00 ondansetron [facility] [place] 2022-10-26 00:00 ondansetron [facility] [place] 2022-09-01 00:00 trazodone Walk[facility] [place] 2022-10-21 00:00 cyclobenzaprine [facility] [place] 2022-09-01 00:00 trazodone [facility] [place] 2022-10-21 00:00 cyclobenzaprine Walk[facility] [...] [facility] [place] 2022-10-19 00:00 ondansetron Walk[facility] [place] 2022-10-20 00:00 ondansetron Walk[facility] [place] 2022-10-21 00:00 ondansetron Walk[facility] [place] 2022-10-24 00:00 ondansetron [facility] [place] 2022-10-26 00:00 ondansetron Walk-In [facility] Prim [facility] Care [...] [facility] [place] 2022-10-19 00:00 hydrocodone-acetaminophen Walk[facility] [place] 2022-10-20 00:00 hydrocodone-acetaminophen Walk[facility] [place] 2022-10-21 00:00 hydrocodone-acetaminophen Walk[facility] [place] 2022-10-24 00:00 hydrocodone-acetaminophen Walk[facility] [place] 2022-10-26 00:00 hydrocodone-acetaminophen Walk-In Clin ic Primary Care [...] [facility] [place] 2022-10-19 00:00 hydrocodone-acetaminophen Walk[facility] [place] 2022-10-20 00:00 hydrocodone-acetaminophen Walk[facility]In [facility] [place] 2022-10-21 00:00 hydrocodone-acetaminophen Walk[facility] [place] 2022-10-24 00:00 hydrocodone-acetaminophen Walk[facility] [place] 2022-10-26 00:00 hydrocodone-acetaminophen Walk-In Clin ic Primary Care [...] [facility] [place] 2022-10-19 00:00 losartan [facility] [place] 2022-10-20 00:00 losartan [facility] [place] 2022-10-21 00:00 losartan [facility] [place] 2022-10-24 00:00 losartan [facility] [place] 2022-10-26 00:00 losartan [facility] [place] 2022-09-01 00:00 gabapentin Walk[facility] [place] 2022-10-21 00:00 cyclobenzaprine Walk[facility] [place] 2022-09-01 00:00 tizanidine Walk[facility] [place] 2022-10-21 00:00 cyclobenzaprine Walk-In [facility] [place] 2022-09-01 [...] [facility] [place] 2022-10-19 00:00 hydrocodone-acetaminophen Walk-In [facility] [place] 2022-10-20 00:00 hydrocodone-acetaminophen Walk-In [facility] [place] 2022-10-21 00:00 hydrocodone-acetaminophen Walk[facility] [place] 2022-10-24 00:00 hydrocodone-acetaminophen Walk[facility] [place] 2022-10-26 00:00 hydrocodone-acetaminophen Walk[facility] [place] 2022-09-01 00:00 tizanidine Walk[facility] [place] 2022-08-04 00:00 losartan [facility] [place] 2022-08-31 00:00 losartan [facility] [place] 2022-09-01 00:00 losartan [facility] [place] 2022-09-02 00:00 losartan [facility] [place] 2022-09-14 00:00 losartan [facility] [place] 2022-10-19 00:00 losartan [facility] [place] 2022-10-20 00:00 losartan [facility] p[facility] 2022-10-21 00:00 losartan Walk[facility] 2022-10-24 00:00 losartan [facility] [place] 2022-10-26 00:00 losartan [facility] [place] Problems date description facility 2022-08-04 00:00 Anxiety state, unspecified Walk-In Cli [facility] 2022-08-04 00:00 Knee pain Walk[facility] 2022-08-04 00:00 Eczema Walk[facility] 2022-08-04 00:00 Femoral acetabular impingement Walk-In Clinic [facility] 2022-08-04 00:00 Anxiety Walk[facility] 2022-08-04 00:00 Arthritis of hip Walk[facility]In [facility] 2022-08-04 00:00 Contact dermatitis and other Walk-In [facility] Primary Care & eczema, unspecified cause Ancillary Serv ices [facility] 2022-08-04 00:00 Arthropathy unspecified, involving [facility] Primary Care & pelvic region and thigh [facility] 2022-08-04 00:00 Pain in joint involving lower leg Walk -In Clinic [facility] 2022-08-04 00:00 Other specified disorders of joint [facility] Primary Care & of pelvic region and thigh Anc[facility] v[facility] 2022-08-04 00:00 Chronic pain [facility] [place] 2022-08-04 00:00 Anxiety disorder, unspecified [facility] [place] 2022-08-04 00:00 Other chronic pain [facility] [place] 2022-08-04 00:00 Dermatitis, unspecified [facility] [place] 2022-08-04 00:00 Bilateral primary osteoarthritis of Wa lk-In Clinic Primary Care & hip Ancillary Services C [place] 2022-08-04 00:00 Pain in unspecified knee Walk-In Clini c [facility] [place] 2022-08-04 00:00 Other specified joint disorders, Walk- In Clinic Primary Care & unspecified hip Ancillary Services [facility] 2022-08-24 00:00 Cervical arthrodesis Walk-In Clinic Pr im[facility] Care & [facility] Services [facility] [place] 2022-08-24 00:00 Postsurgical arthrodesis status Walk-I n Clinic [facility] Services [facility] 2022-08-24 00:00 Arthrodesis status Walk-In Clinic [facility] 2022-08-31 00:00 Anxiety state, unspecified Walk-In Cli cor[facility]ia Primary [facility] Services [facility] 2022-08-31 00:00 Knee pain Walk-In [facility] 2022-08-31 00:00 Eczema Walk-In [facility] 2022-08-31 00:00 Femoral acetabular impingement Walk-In Clinic [facility] Services [facility] 2022-08-31 00:00 Anxiety Walk-In [facility] 2022-08-31 00:00 Arthritis of hip Walk-In [facility] 2022-08-31 00:00 Contact dermatitis and other Walk-In [facility] Primary Care & eczema, unspecified cause Ancillary [...] [facility]In Clini [facility] E[facility] p[facility] 2022-08-31 00:00 Other specified joint disorders, Walk- In Clinic Primary Care & unspecified hip Ancillary Services [facility] 2022-09-01 00:00 Thyroid disorder screening Walk-In Cli [facility] Primary Care & Ancillary Services [facility] p[facility] 2022-09-01 00:00 Hyperlipidemia screening Walk[facility]In [facility] Services Eder peters 2022-09-01 00:00 Perianal dermatitis Walk-In Clinic [facility] Care & Ancillary Services Eder peters [...] 00:00 Contact dermatitis and other Walk-In C [facility] Primary Care & eczema, unspecified cause Ancillary Serv ices [facility] 2022-09-01 00:00 Arthropathy unspecified, involving [facility] Care & pelvic region and thigh [facility] 2022-09-01 00:00 Pain in joint involving lower leg Walk -In [facility] 2022-09-01 00:00 Other specified disorders of joint [facility] Primary Care & of pelvic region and thigh Anc[facility] 2022-09-01 00:00 Spasm of muscle Walk-In [facility] 2022-09-01 00:00 Chronic pain Walk[facility] 2022-09-01 00:00 Anxiety disorder, unspecified [facility] 2022-09-01 00:00 Other chronic pain Walk[facility] 2022-09-01 00:00 Dermatitis, unspecified Walk[facility]In [facility] p[facility] 2022-09-01 00:00 Bilateral primary osteoarthritis of Wa lk-In Clinic Primary Care & hip [facility] Services [facility] p[facility] 2022-09-01 00:00 Pain in unspecified knee Walk-In Clini c [facility] p[facility] 2022-09-01 00:00 Other specified joint disorders, Walk- In Clinic Primary Care & unspecified hip Ancillary Services [facility] p[facility] 2022-09-01 00:00 Other muscle spasm Walk-In Clinic [...] Cli cor[facility]ia Primary Care & Ancillary Services [facility] 2022-09-02 00:00 Knee pain Walk[facility]In [facility] 2022-09-02 00:00 Eczema Walk-In Clinic [facility] 2022-09-02 00:00 Femoral acetabular impingement Walk-In Clinic [facility] Services [facility] 2022-09-02 00:00 Anxiety Walk-In Clinic [facility] 2022-09-02 00:00 Arthritis of hip Walk-In Clinic [facility] 2022-09-02 00:00 Contact dermatitis and other Walk-In [facility] Primary Care & eczema, unspecified cause Ancillary Serv ices [facility] 2022-09-02 00:00 Arthropathy unspecified, involving [facility] Primary Care & pelvic region and thigh Ancillary Serv[facility] 2022-09-02 00:00 Pain in joint involving lower leg Walk -In Clinic Primary Care & Ancillary Services [facility] 2022-09-02 00:00 Other specified disorders of joint [facility] Primary Care & of pelvic region and thigh Ancillary Ser vices [facility] 2022-09-02 00:00 Chronic pain Walk-In Clinic [facility] 2022-09-02 00:00 Anxiety disorder, unspecified Walk-In Clinic Primary [facility] Services [facility] 2022-09-02 00:00 Other chronic pain Walk-In Clinic [facility] 2022-09-02 00:00 Dermatitis, unspecified Walk-In Clinic Primary [facility] Services [facility] 2022-09-02 00:00 Bilateral primary osteoarthritis of Wa lk-In Clinic Primary Care & hip Ancillary Services [facility] 2022-09-02 00:00 Pain in unspecified knee Walk-In Clini Primary Care & Ancillary Services [facility] 2022-09-02 00:00 Other specified joint disorders, Walk- In Clinic Primary Care & unspecified hip Ancillary Services [facility] 2022-09-14 00:00 Anxiety state, unspecified Walk-In Cli cor[facility]ia Primary Care & Ancillary Services [facility] 2022-09-14 00:00 Knee pain Walk-In Clinic [facility] 2022-09-14 00:00 Eczema Walk-In Clinic Prim [facility] 2022-09-14 00:00 Femoral acetabular impingement Walk-In Clinic Primary Care & Ancillary Services [facility] 2022-09-14 00:00 Anxiety Walk-In Clinic Prim [facility] 2022-09-14 00:00 Arthritis of hip Walk-In Clinic Prim [facility] Services [facility] 2022-09-14 00:00 Contact dermatitis and other Walk-In [facility] Primary Care & eczema, unspecified cause Ancillary Serv ices [facility] 2022-09-14 00:00 Arthropathy unspecified, involving [facility] Primary Care & pelvic region and thigh Ancillary Serv[facility] es [facility] 2022-09-14 00:00 Pain in joint involving lower leg Walk -In Clinic Primary Care & Ancillary Services [facility] 2022-09-14 00:00 Other specified disorders of joint [facility] Primary Care & of pelvic region and thigh Ancillary Ser vices [facility] 2022-09-14 00:00 Chronic pain Walk-In Clinic Prim [facility] Services [facility] 2022-09-14 00:00 Anxiety disorder, unspecified Walk-In [facility] Primary Care & Ancillary Services [facility] 2022-09-14 00:00 Other chronic pain Walk-In Clinic Prim [facility] 2022-09-14 00:00 Dermatitis, unspecified Walk-In Clinic Primary Care & Ancillary Services [facility] 2022-09-14 00:00 Bilateral primary osteoarthritis of Wa lk-In Clinic Primary Care & hip Ancillary Services [facility] 2022-09-14 00:00 Pain in unspecified knee Walk-In Clini Primary Care & Ancillary Services [facility] 2022-09-14 00:00 Other specified joint disorders, Walk- In Clinic Primary Care & unspecified hip Ancillary Services [facility] 2022-10-18 00:00 Discharge from nipple Walk-In Clinic P [facility] Care & Ancillary Services [facility] 2022-10-18 00:00 Other signs and symptoms in breast [facility] [place] 2022-10-18 00:00 Abdominal pain, left lower quadrant [facility]-In [facility] [place] 2022-10-18 00:00 Nipple discharge Walk-In Clinic [facility] 2022-10-18 00:00 Left lower quadrant pain Walk-In Clini c Primary Care & Ancillary Services [facility] 2022-10-19 00:00 Anxiety state, unspecified Walk-In Cli [facility] Primary Care & Ancillary Services [facility] 2022-10-19 00:00 Knee pain Walk-In Clinic [facility] Care & Anc[facility] Services [facility] 2022-10-19 00:00 Eczema Walk-In Clinic Prim [facility] Services [facility] 2022-10-19 00:00 Femoral acetabular impingement Walk-In Clinic Primary Care & Ancillary Services [facility] 2022-10-19 00:00 Anxiety Walk-In Clinic [facility] Services [facility] 2022-10-19 00:00 Arthritis of hip Walk-In Clinic [facility] Care & Anc[facility] Services [facility] 2022-10-19 00:00 Contact dermatitis and other Walk-In [facility] Primary Care & eczema, unspecified cause Ancillary Serv ices [facility] 2022-10-19 00:00 Arthropathy unspecified, involving [facility] Primary Care & pelvic region and thigh Ancillary Servic es [facility] 2022-10-19 00:00 Pain in joint involving lower leg Walk -In Clinic Primary Care & Ancillary Services [facility] 2022-10-19 00:00 Other specified disorders of joint [facility] Primary Care & of pelvic region and thigh Ancillary Ser vices [facility] 2022-10-19 00:00 Chronic pain Walk-In Clinic Prim [facility] Care & Ancillary Services [facility] 2022-10-19 00:00 Anxiety disorder, unspecified Walk-In Clinic Primary Care & Ancillary Services [facility] 2022-10-19 00:00 Other chronic pain Walk-In Clinic Prim [facility] Anc[facility] Services [facility] 2022-10-19 00:00 Dermatitis, unspecified Walk-In Clinic Primary Care & Ancillary Services [facility] 2022-10-19 00:00 Bilateral primary osteoarthritis of Wa lk-In Clinic Primary Care & hip Ancillary Services [facility] 2022-10-19 00:00 Pain in unspecified knee Walk-In Clini Primary Care & Ancillary Services [facility] 2022-10-19 00:00 Other specified joint disorders, Walk- In Clinic Primary Care & unspecified hip Ancillary Services [facility] [place] 2022-10-20 00:00 Anxiety state, unspecified Walk-In Cli cor[facility]ia Primary Care & Ancillary Services [facility] 2022-10-20 00:00 Knee pain Walk-In Clinic Prim [facility] Services [facility] 2022-10-20 00:00 Eczema Walk-In Clinic Prim [facility] Care & Ancillary Services [facility] 2022-10-20 00:00 Femoral acetabular impingement Walk-In Clinic Primary Care & Ancillary Services [facility] 2022-10-20 00:00 Anxiety Walk-In Clinic Prim [facility] [place] 2022-10-20 00:00 Arthritis of hip Walk-In Clinic Prim [facility] & Ancillary Services [facility] 2022-10-20 00:00 Contact dermatitis and other Walk-In [facility] Primary Care & eczema, unspecified cause Ancillary Serv ices [facility] 2022-10-20 00:00 Arthropathy unspecified, involving [facility] Primary Care & pelvic region and thigh Ancillary Servic es [facility] 2022-10-20 00:00 Pain in joint involving lower leg Walk -In Clinic Primary Care & Ancillary Services [facility] 2022-10-20 00:00 Other specified disorders of joint [facility] Primary Care & of pelvic region and thigh Ancillary Ser vices [facility] 2022-10-20 00:00 Chronic pain Walk-In Clinic Prim [facility] Care & Ancillary Services [facility] 2022-10-20 00:00 Anxiety disorder, unspecified Walk-In Clinic Primary Care & Ancillary Services [facility] 2022-10-20 00:00 Other chronic pain Walk-In Clinic Prim [facility] Care & Ancillary Services [facility] 2022-10-20 00:00 Dermatitis, unspecified Walk-In [facility] [place] 2022-10-20 00:00 Bilateral primary osteoarthritis of Wa lk-In Clinic Primary Care & hip Ancillary Services [facility] 2022-10-20 00:00 Pain in unspecified knee [facility] [facility] 2022-10-20 00:00 Other specified joint disorders, Walk- In Clinic Primary Care & unspecified hip Ancillary Services [facility] 2022-10-21 00:00 Anxiety state, unspecified [facility] [place] 2022-10-21 00:00 Knee pain Walk-In Clinic Prim eliecer Care & Ancillary Services [facility] 2022-10-21 00:00 Eczema [facility] Care [facility] [place] 2022-10-21 00:00 Femoral acetabular impingement [facility] Primary Care & Ancillary Services [facility] 2022-10-21 00:00 Anxiety Walk-In Clinic Prim eliecer Care & Ancillary Services [facility] 2022-10-21 00:00 Arthritis of hip Walk[facility]In [facility] Prim eliecer Care & Ancillary Services [facility] 2022-10-21 00:00 Contact dermatitis and other Walk-In [facility] Primary Care & eczema, unspecified cause Ancillary Serv ices [facility] 2022-10-21 00:00 Arthropathy unspecified, involving [facility] Primary Care & pelvic region and thigh Ancillary Servic es [facility] 2022-10-21 00:00 Pain in joint involving lower leg Walk -In Clinic Primary Care & Ancillary Services [facility] 2022-10-21 00:00 Other specified disorders of joint [facility] Primary Care & of pelvic region and thigh Ancillary Ser vices [facility] 2022-10-21 00:00 Chronic pain Walk-In Clinic Prim eliecer Care & Ancillary Services [facility] 2022-10-21 00:00 Anxiety disorder, unspecified [facility] Primary Care & Ancillary Services [facility] 2022-10-21 00:00 Other chronic pain [facility]In [facility] Prim [facility]ie[facility] Care & Ancillary Services [facility] 2022-10-21 00:00 Dermatitis, unspecified [facility] Primary Care & Ancillary Services [facility] 2022-10-21 00:00 Bilateral primary osteoarthritis of [facility] Primary Care & hip Ancillary Services [facility] 2022-10-21 00:00 Pain in unspecified knee Walk[facility]In Cl[facility] Primary Care & Ancillary Services [facility] 2022-10-21 00:00 Other specified joint disorders, Walk- In Clinic Primary Care & unspecified hip Ancillary Services [facility] 2022-10-24 00:00 Anxiety state, unspecified [facility] & [facility] Services [facility] 2022-10-24 00:00 Knee pain [facility] [place] 2022-10-24 00:00 Eczema [facility] [place] 2022-10-24 00:00 Femoral acetabular impingement [facility] [place] 2022-10-24 00:00 Anxiety [facility] [place] 2022-10-24 00:00 Arthritis of hip [facility]In [facility] Prim eliecer Care & Ancillary Services [facility] 2022-10-24 00:00 Contact dermatitis and other Walk-In [facility] Primary Care & eczema, unspecified cause Ancillary Serv ices [facility] 2022-10-24 00:00 Arthropathy unspecified, involving [facility] Primary Care & pelvic region and thigh Ancillary Servic es [facility] 2022-10-24 00:00 Pain in joint involving lower leg [facility] [place] 2022-10-24 00:00 Other specified disorders of joint [facility] Primary Care & of pelvic region and thigh Ancillary Ser vices [facility] 2022-10-24 00:00 Chronic pain Walk-In Clinic Prim eliecer Care & Ancillary Services [facility] 2022-10-24 00:00 Anxiety disorder, unspecified [facility] Primary Care & Ancillary Services [facility] 2022-10-24 00:00 Other chronic pain [facility] Care [facility] [place] 2022-10-24 00:00 Dermatitis, unspecified [facility] [place] 2022-10-24 00:00 Bilateral primary osteoarthritis of [facility] Clinic Primary Care & hip Ancillary Services [facility] 2022-10-24 00:00 Pain in unspecified knee Walk[facility]In Cl[facility] c Primary Care & Ancillary Services [facility] 2022-10-24 00:00 Other specified joint disorders, Walk- In Clinic Primary Care & unspecified hip Ancillary Services [facility] 2022-10-26 00:00 Anxiety state, unspecified [facility] [place] 2022-10-26 00:00 Knee pain [facility] Care [facility] [place] 2022-10-26 00:00 Eczema Walk[facility]In [facility] Prim eliecer Care & Ancillary Services [facility] 2022-10-26 00:00 Femoral acetabular impingement [facility] [place] 2022-10-26 00:00 Anxiety [facility] [place] 2022-10-26 00:00 Arthritis of hip [facility] Care [facility] [place] 2022-10-26 00:00 Contact dermatitis and other Walk-In [facility] Primary Care & eczema, unspecified cause Ancillary Serv ices [facility] 2022-10-26 00:00 Arthropathy unspecified, involving [facility] Primary Care & pelvic region and thigh Ancillary Servic es [facility] 2022-10-26 00:00 Pain in joint involving lower leg [facility] [place] 2022-10-26 00:00 Other specified disorders of joint [facility] Primary Care & of pelvic region and thigh Ancillary Ser vices [facility] 2022-10-26 00:00 Chronic pain [facility] Care [facility] [place] 2022-10-26 00:00 Anxiety disorder, unspecified [facility] [place] 2022-10-26 00:00 Other chronic pain [facility] [place] 2022-10-26 00:00 Dermatitis, unspecified [facility] [place] 2022-10-26 00:00 Bilateral primary osteoarthritis of [facility] Primary Care & hip [facility] [place] 2022-10-26 00:00 Pain in unspecified knee [facility] & [facility] [place] 2022-10-26 00:00 Other specified joint disorders, [facility]- In [facility] Primary Care & unspecified hip [facility]illary Services [facility] Procedures date description facility 2022-09-01 00:00 Visit Code Hold [facility]iecer Care [facility] 2022-10-18 00:00 Visit Code Hold [facility] Prim [...] & [facility]illary [facility] Result panel 8 (unknown) (no date) (unknown) Walk-In (no value) (units (unk nown) Clinic Primary unknown) Care & [facility] Result panel 9 (unknown) (no date) (unknown) Walk-In (no value) (units (unk nown) Clinic Primary unknown) Care [facility] Result panel 10 (unknown) (no date) (unknown) Walk-In (no value) (units (unk nown) Clinic Primary unknown) Care [facility] Result panel 11 (unknown) (no date) (unknown) Walk-In (no value) (units (unk nown) Clinic Primary unknown) Care [facility] Result panel 12 (unknown) (no date) (unknown) Walk-In (no value) (units (unk nown) Clinic Primary unknown) Care [facility] Result panel 13 (unknown) (no date) (unknown) Walk-In (no value) (units (unk nown) Clinic Primary unknown) Care [facility] Result panel 14 (unknown) (no date) (unknown) Walk-In (no value) (units (unk nown) Clinic Primary unknown) Care [facility] Social History date description facility 2022-09-01 00:00 Former smoker Walk[facility]In Clinic Prim eliecer Care & Ancillary Services [facility] 2022-10-18 00:00 Former smoker Walk[facility]In Clinic [facility] & Ancillary Services [facility] Vital Signs date measurement value units 2022-09-01 00:00 BMI 37.74 kg/m2 2022-09-01 00:00 BP_diastolic 93 mmHg 2022-09-01 00:00 BP_systolic 153 mmHg 2022-09-01 00:00 heart_rate 75 /min 2022-09-01 00:00 height_metric 154.94 cm 2022-09-01 00:00 height_standard 61 in 2022-09-01 00:00 respiration_rate 14 /min 2022-09-01 00:00 temperature_metric 36.39 C 2022-09-01 00:00 temperature_standard 97.5 F 2022-09-01 00:00 weight_metric 90.26 kg 2022-09-01 00:00 weight_standard 199 lb 2022-10-18 00:00 BMI 39.06 kg/m2 2022-10-18 00:00 BP_diastolic 62 mmHg 2022-10-18 00:00 BP_systolic 110 mmHg 2022-10-18 00:00 height_metric 154.94 cm 2022-10-18 00:00 height_standard 61 in 2022-10-18 00:00 temperature_metric 36.72 C 2022-10-18 00:00 temperature_standard 98.1 F 2022-10-18 00:00 weight_metric 93.44 kg 2022-10-18 00:00 weight_standard 206 lb
--- NOTE | 2022-10-26 16:22 | ED Physician Documentation ---
PD HPI LOWER EXT INJURY - Stated complaint Stated Complaint: NECK PX/LT ARM PX - Chief complaint Chief Complaint: Ext Problem - History obtained from History obtained from: Patient - Additional information Additional information: She has cervical radiculopathy last year addressed via anterior approach with resultant vocal cord injury. Still has radicular symptoms in the left arm but increased pain and numbness of the left arm over the last week consistent with prior cervical radiculopathy. Has been in touch with her surgeon and MRI is arranged for tomorrow but has been referred here for pain management. 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 : Incontinence, Renal insuffiency, Frequency HEENT:  Psych: Depression, Anxiety, Panic attacks, Post traumatic stress disorder, Claustrophobia Musculoskeletal: Osteoarthritis, Chronic back pain, Other Derm: Other - Past Surgical History Past Surgical History: Yes Ortho: Other /DRAGLINE OPERATOR: section Neuro: Other - Present Medications Home Medications: Ambulatory Orders Medication Instructions Recorded Confirmed Albuterol Sulfate [Proair Hfa 2 puffs INH Q4H PRN 05/26/22 05/31/22 Inhaler] Amitriptyline [Elavil] 10 mg PO QPM 05/26/22 05/31/22 Baclofen [Lioresal] 10 mg PO BID PRN 05/26/22 05/31/22 Escitalopram Oxalate 20 mg PO DAILY 05/26/22 06/07/22 Gabapentin [Neurontin] 300 mg PO TID 05/26/22 06/09/22 Lisinopril/Hydrochlorothiazide 2 tab PO DAILY 05/26/22 06/07/22 [Zestoretic 20-12.5 mg Tablet] Ondansetron Odt [Zofran Odt] 4 mg PO Q4HR PRN 05/26/22 05/31/22 Pantoprazole Sodium 20 mg PO DAILY PRN 05/26/22 05/31/22 tiZANidine [Zanaflex] 4 mg PO BID PRN 05/26/22 05/31/22 Cyclobenzaprine [Flexeril] 10 mg PO TID PRN 05/31/22 05/31/22 Acetaminophen [Acetaminophen Extra 1,000 mg PO Q8H PRN #60 tablet 06/10/22 Strength] Docusate Sodium 100Mg Capsule 100 - 200 mg PO BID PRN #60 cap 06/10/22 [Colace 100Mg Capsule] Ibuprofen [Motrin] 600 mg PO Q6H PRN #30 tab 06/10/22 Metoclopramide [Reglan] 10 mg PO Q6H PRN #20 tablet 06/10/22 oxyCODONE [Roxicodone] 2.5 - 5 mg PO Q4H PRN #24 tablet 06/10/22 Gabapentin [Neurontin] 300 mg PO TID #60 cap 10/26/22 Oxycodone HCl/Acetaminophen 1 - 2 each PO Q6H PRN #20 tablet 10/26/22 [Percocet 5-325 mg Tablet] predniSONE [Deltasone] 20 mg PO [id number] #21 tab 10/26/22 - Allergies Allergies/Adverse Reactions: Allergies Allergy/AdvReac Type Severity Reaction Status Date / Time nortriptyline Allergy Unknown Verified 10/26/22 13:28 duloxetine [From Cymbalta] AdvReac Severe Unknown Verified 10/26/22 13:28 sertraline [From Zoloft] AdvReac Severe Unknown Verified 10/26/22 13:28 venlafaxine AdvReac Severe Unknown Verified 10/26/22 13:28 fluoxetine [From Prozac] AdvReac Intermediate Unknown Verified 10/26/22 13:28 - Social History Does the pt smoke?: Yes Smoking Status: Former smoker Does the pt drink ETOH?: Yes Does the pt have substance abuse?: Yes - Immunizations Immunizations are current?: Yes - POLST Patient has POLST: No PD ED PE NORMAL - Vitals Vital signs reviewed: Yes - General General: Alert and oriented X 3, No acute distress - HEENT HEENT: PERRL, EOMI - Neck Neck: Supple, no meningeal sign, No bony TTP - Extremities Extremities: Other (Diminished sensation in a left C7-C8 distribution with normal bread panner strength, thumb extension, interosseous strength.) - Neuro Neuro: Alert and oriented X 3, Normal speech Results - Vitals Vitals: Vital Signs - 24 hr 10/26/22 13:28 Temperature 36.5 C Heart Rate 60 Respiratory 16 Rate Blood Pressure 140/90 H O2 Saturation 98 Oxygen O2 Source Room air PD Medical Decision Making - ED course ED course: The patient and family were counseled as to the diagnosis and need for follow- up. I counseled the patient with regard to signs and symptoms that would necessitate an urgent reevaluation in the emergency department. They understand they are welcome to return at any time if worse or if not improving as expected. This document was made in part using voice recognition software. While efforts are made to proofread this documents, sound alike and grammatical errors may occur. Departure - Departure Disposition: Home, Self Care Clinical Impression: Cervical radiculopathy Condition: Good Record reviewed to determine appropriate education?: Yes Instructions: ED Cervical Radiculopathy Prescriptions: predniSONE [Deltasone] 20 mg PO [id number] #21 tab Gabapentin [Neurontin] 300 mg PO TID #60 cap Oxycodone HCl/Acetaminophen [Percocet 5-325 mg Tablet] 1 - 2 each PO Q6H PRN #20 tablet PRN Reason: pain Comments: I sent prescriptions electronically to [facility] [place]. Follow-up for MRI tomorrow as scheduled. Return for new or worsening symptoms. I am prescribing a short course of narcotic pain medication for you. These are potentially dangerous and addictive medications that should be used carefully. These medications may constipate you. Take an xuez-kxe-unkrwgh stool softener (docusate) twice daily with plenty of water while taking these medications. If you go 24 hours without a bowel movement, take [id number] miralax, per package instructions. Do not drink or drive while taking these medications. If you received narcotic or sedating medications while in the emergency department, do not drive for 24 hours. Store this medication in a safe, secure place and out of reach of children. It is a violation of federal law to give or sell this medication to another person or to use in a manner other than prescribed. The ED will not refill narcotic prescriptions, including prescriptions lost or stolen. To dispose of unwanted medications: 1. [facility] [address] [facility] [place] has a medication drop box. They accept prescription medications (in pill form) Monday through Monday 9:00 a.m. to 5:00 p.m. 2. The [facility] [employer] accepts prescription medications (in pill form only) for disposal year round. Call for more information. 3. Contact the [facility] for the next [facility] sponsored prescription drug collection event. , [phone], or [phone]; Note that many narcotic pain relievers also contain Tylenol/acetaminophen. Please ensure that your total dose of acetaminophen from all sources does not exceed 3 g (3000 mg) per day.
[2022-10-26 16:33] VITALS: BP 133/87
== END 2022-10-26 16:33 | disposition home or self-care (01) ==
LOC: ED 13:19
DX: M54.12 Radiculopathy, cervical region (principal); Z87.891 Personal history of nicotine dependence; R10.32 Left lower quadrant pain
CPT/HCPCS: 99281; 99283

== ENCOUNTER 2022-10-27 13:38 | Outpatient (CLI) | payer MEDICAID ==
--- NOTE | 2022-10-27 15:13 | MRI Report ---
PROCEDURE: CERVICAL SPINE WO INDICATIONS: STATUS POST CERVICAL SPINAL FUSION TECHNIQUE: Noncontrast sagittal T1 spin echo and T2 fast spin echo, sagittal STIR, foraminal oblique sagittal T2 fast spin echo, and axial gradient echo or T2 fast spin echo through the cervical spine. COMPARISON: None. FINDINGS: Postsurgical changes of C7-T1 ACDF. Susceptibility artifact related to the hardware limits evaluation of the marrow signal and prevertebral soft tissues at the operative level. There within this limitat ion there is no obvious abnormality. Straightening of usual cervical lordosis. No listhesis. Vertebra l body heights maintained. No suspicious focal marrow signal abnormality. Discogenic marrow edema at the opposing C5-C6 and C6-C7 endplates. Normal morphology and signal intensity of the cervical cord. There is no syrinx. Prevertebral and soft tissues grossly normal. C2-C3: No spinal canal or neural foraminal stenosis. C3-C4: Mild bilateral neural foraminal narrowing due to facet and uncovertebral hypertrophy. No spi nal canal stenosis. C4-C5: Mild to moderate spinal canal stenosis due to posterior disc osteophyte complex flattening th e ventral cord and ligamentum flavum buckling mildly effacing CSF dorsal to the cord. Facet and uncov ertebral hypertrophy contribute to mild bilateral neural foraminal narrowing. C5-C6: Mild to moderate spinal canal stenosis due to posterior disc-osteophyte complex flattening th e ventral cord slightly. Facet and uncovertebral hypertrophy combine to produce mild-moderate bilater al neural foraminal narrowing. C6-C7: Mild to moderate spinal canal stenosis due to posterior disc-ossify complexes flattening the ventral cord and buckling of the ligamentum flavum mildly effacing CSF dorsal to the cord. Facet and uncovertebral hypertrophy combine to produce mild-moderate bilateral neural foraminal narrowing. C7-T1: No spinal canal or neural foraminal stenosis. IMPRESSION: Post surgical changes of C7-T1 ACDF. Mild to moderate bilateral neural foraminal narrowing at C5-C6 and C6-C7. Mild to moderate spinal canal stenosis from C4 C5 through C6 C7. Reviewed by: Johnie Ferrer MD on 10/27/2022 3:12 PM PST Approved by: Johnie Ferrer MD on 10/27/2022 3:12 PM PST Station ID: [id number]
[2022-10-27 15:44] LABS: T4 (THYROXINE) 8.2 ug/dL (6.09-12.23)
[2022-10-27 15:47] LABS: THYROID STIMULATING HORMONE 0.26 uIU/mL (0.34-5.60)
== END 2022-10-27 13:39 | disposition home or self-care (01) ==
LOC: DI 13:38
PROVIDERS: ATTEND Neurological Surgery
DX: M47.812 Spondylosis without myelopathy or radiculopathy, cervical region (principal); M48.02 Spinal stenosis, cervical region; Z98.1 Arthrodesis status; E03.9 Hypothyroidism, unspecified
CPT/HCPCS: 36415; 84436; 84443; 84480

== ENCOUNTER 2022-11-09 15:10 | Outpatient (CLI) | payer MEDICAID ==
[2022-11-09] MEDS ORDERED: iohexoL-300 100 ML VIAL ONE (15:14)
[2022-11-09] MEDS ORDERED: DIATRIZOATE MEGLU/DIATRIZO SOD 30 ML BOTTLE PO ONE ×2 (15:14→18:23)
[2022-11-09 15:38] LABS: CREATININE 0.7 mg/dL (0.4-1.0)
[2022-11-09] MEDS ORDERED: iohexoL-300 100 ML VIAL IVP ONE (18:23)
--- NOTE | 2022-11-09 18:46 | CT Report ---
PROCEDURE: ABDOMEN/PELVIS W INDICATIONS: RIGHT LWER QUAD ABD PAIN CONTRAST: 100mL Omni 300 TECHNIQUE: After the administration of oral and IV contrast, 5 mm thick sections acquired from the diaphragms to the symphysis. 5 mm thick coronal and sagittal reformats were acquired. For radiation dose reducti on, the following was used: automated exposure control, adjustment of mA and/or kV according to joyce ent size. COMPARISON: CT IVP, 06/08/2022.. FINDINGS: Image quality: Excellent. ABDOMEN: Lung bases: Lung bases are clear. Heart size is normal. Solid organs: Liver is mildly enlarged measuring 20.3 cm in length. Spleen is Normal in size and enh ancement. Gallbladder is normal. Biliary system is non dilated. Pancreas enhances normally. No ad renal nodules. Kidneys demonstrate normal size and enhancement, without hydronephrosis. Peritoneum and bowel: Bowel loops demonstrate normal caliber. Cecum is thickened. There may be mild thickening of the terminal ileum. Appendix is normal. No free fluid or air. Nodes and vessels: No retroperitoneal or mesenteric adenopathy by size criteria. Aorta and inferior vena cava are normal in size. Miscellaneous: No ventral hernias. PELVIS: Genitourinary: Bladder wall thickness is normal. Uterus is absent. Ovaries are unremarkable. Miscellaneous: No inguinal hernias or adenopathy. Bones: No suspicious bony lesions. No vertebral body compression fractures. IMPRESSION: 1. Mild thickening of cecum and equivocal thickening of terminal ileum. Differential diagnoses are in fectious etiology, inflammatory bowel disease and neoplasm. Recommend clinical correlation. If clinic ally indicated, colonoscopy may be obtained. 2. Mild hepatomegaly. Reviewed by: Rodríguez Goetz MD on 11/09/2022 6:45 PM PST Approved by: Rodríguez Goetz MD on 11/09/2022 6:45 PM PST Station ID: [id number]
== END 2022-11-09 15:11 | disposition home or self-care (01) ==
LOC: LAB 15:10
PROVIDERS: ATTEND Obstetrics & Gynecology
DX: R10.31 Right lower quadrant pain (principal); R10.32 Left lower quadrant pain; R16.0 Hepatomegaly, not elsewhere classified; R93.3 Abnormal findings on diagnostic imaging of other parts of digestive tract
CPT/HCPCS: 36415; 74177; 82565; Q9963; Q9967

== ENCOUNTER 2022-12-19 20:12 | Emergency (ER) | payer MEDICAID ==
--- OUTSIDE RECORDS SUMMARY | 2022-12-19 20:24 | EXTERNAL MEDICAL SUMMARY RPT | Continuity of Care Document ---
:1975 Author Organization [facility] Address [address] [place] [address] Phone Care Team Providers Name Role Phone Unavailable Unavailable Unavailable Maria Elena Mays Unavailable Unavailable Allergies No information. Encounters No information. Functional Status No information. Immunizations No information. Medications date description facility 2022-10-19 00:00 [email or web address] [facility] 2022-10-20 00:00 [email or web address] [facility] [place] 2022-10-21 00:00 [email or web address] [facility] [place] 2022-10-24 00:00 [email or web address] [facility] [place] 2022-10-26 00:00 ondansetron [facility] [place] 2022-10-27 00:00 [email or web address] [facility] [place] 2022-10-28 00:00 [email or web address] [facility] [place] 2022-10-31 00:00 [email or web address] [facility] 2022-11-09 00:00 [email or web address] [facility] [place] 2022-10-19 00:00 hydrocodone-acetaminophen [facility] 2022-10-20 00:00 hydrocodone-acetaminophen [facility] 2022-10-21 00:00 hydrocodone-acetaminophen [facility] [place] 2022-10-24 00:00 hydrocodone-acetaminophen [facility] 2022-10-26 00:00 hydrocodone-acetaminophen [facility] [place] 2022-10-27 00:00 hydrocodone-acetaminophen [facility] [place] 2022-10-28 00:00 hydrocodone-acetaminophen [facility] [place] 2022-10-31 00:00 hydrocodone-acetaminophen [facility] [place] 2022-11-09 00:00 hydrocodone-acetaminophen [facility] [...] [facility] [place] 2022-10-27 00:00 [email or web address] [facility] [place] 2022-10-28 00:00 [email or web address] [facility] [place] 2022-10-31 00:00 ondansetron [facility] [place] 2022-11-09 00:00 ondansetron [facility] [...] [facility] [place] 2022-10-27 00:00 losartan [facility] [place] 2022-10-28 00:00 losartan [facility] [place] 2022-10-31 00:00 losartan [facility] [place] 2022-11-09 00:00 losartan [facility] [...] [facility] [place] 2022-10-27 00:00 losartan [facility] [place] 2022-10-28 00:00 losartan [facility] [place] 2022-10-31 00:00 losartan [facility] [place] 2022-11-09 00:00 losartan [facility] [...] [facility] [place] 2022-10-27 00:00 [email or web address] [facility] [place] 2022-10-28 00:00 ondansetron [facility] [place] 2022-10-31 00:00 ondansetron [facility] [place] 2022-11-09 00:00 ondansetron [facility] [...] [facility] [place] 2022-10-27 00:00 ondansetron [facility] [place] 2022-10-28 00:00 ondansetron [facility] [place] 2022-10-31 00:00 ondansetron [facility] [place] 2022-11-09 00:00 [email or web address] [facility] [...] [facility] [place] 2022-10-27 00:00 hydrocodone-acetaminophen [facility] [place] 2022-10-28 00:00 hydrocodone-acetaminophen [facility] [place] 2022-10-31 00:00 hydrocodone-acetaminophen [facility] [place] 2022-11-09 00:00 hydrocodone-acetaminophen Walk[facility]In Clin [facility] Primary Care [...] [facility] [place] 2022-10-27 00:00 hydrocodone-acetaminophen [facility] [place] 2022-10-28 00:00 hydrocodone-acetaminophen [facility] [place] 2022-10-31 00:00 hydrocodone-acetaminophen [facility] [place] 2022-11-09 00:00 hydrocodone-acetaminophen Walk-In Clin ic Primary Care [...] [facility] [place] 2022-10-27 00:00 losartan [facility] [place] 2022-10-28 00:00 losartan [facility] [place] 2022-10-31 00:00 losartan [facility] [place] 2022-11-09 00:00 losartan [facility] [...] [facility] [place] 2022-10-27 00:00 hydrocodone-acetaminophen [facility] [place] 2022-10-28 00:00 hydrocodone-acetaminophen [facility] [place] 2022-10-31 00:00 hydrocodone-acetaminophen [facility] [place] 2022-11-09 00:00 hydrocodone-acetaminophen Walk-In Clin ic Primary Care [...] [facility] [place] 2022-10-27 00:00 losartan [facility] [place] 2022-10-28 00:00 losartan [facility] [place] 2022-10-31 00:00 losartan [facility] [place] 2022-11-09 00:00 losartan [facility] [place] Problems date description facility 2022-10-18 00:00 Discharge from nipple [facility] [place] 2022-10-18 00:00 Other signs and symptoms in breast [facility] [place] 2022-10-18 00:00 Abdominal pain, left lower quadrant [facility] 2022-10-18 00:00 Nipple discharge [facility] 2022-10-18 00:00 Left lower quadrant pain [facility] 2022-10-19 00:00 Anxiety state, unspecified Walk-In [facility] 2022-10-19 00:00 [facility] 2022-10-19 00:00 Eczema [facility] [place] [facility] 2022-10-19 00:00 Femoral acetabular impingement Walk[facility]In Clinic [facility] 2022-10-19 00:00 Anxiety [facility] [place] [facility] 2022-10-19 00:00 Arthritis of hip [facility] [place] [facility] 2022-10-19 00:00 Contact dermatitis and other Walk-In [facility] Primary Care & eczema, unspecified cause [facility] 2022-10-19 00:00 Arthropathy unspecified, involving [facility] Primary Care & pelvic region and thigh [facility] 2022-10-19 00:00 Pain in joint involving lower leg Walk -In [facility] 2022-10-19 00:00 Other specified disorders of joint [facility] Care & of pelvic region and thigh [facility] 2022-10-19 00:00 Chronic pain [facility] 2022-10-19 00:00 Anxiety disorder, unspecified [facility] 2022-10-19 00:00 Other chronic pain [facility] [place] 2022-10-19 00:00 Dermatitis, unspecified [facility] [place] 2022-10-19 00:00 Bilateral primary osteoarthritis of [facility]-In [facility] Primary Care & hip [facility] 2022-10-19 00:00 Pain in unspecified knee Walk[facility] Cl[facility] 2022-10-19 00:00 Other specified joint disorders, Walk- In Clinic Primary Care & unspecified hip [facility] 2022-10-20 00:00 Anxiety state, unspecified [facility] 2022-10-20 00:00 Knee pain [facility] 2022-10-20 00:00 Eczema [facility] 2022-10-20 00:00 Femoral acetabular impingement Walk-In Clinic [facility] 2022-10-20 00:00 Anxiety [facility] 2022-10-20 00:00 Arthritis of hip [facility] 2022-10-20 00:00 Contact dermatitis and other Walk-In [facility] Primary Care & eczema, unspecified cause [facility] 2022-10-20 00:00 Arthropathy unspecified, involving [facility] Care & pelvic region and thigh [facility] 2022-10-20 00:00 Pain in joint involving lower leg Walk -In [facility] 2022-10-20 00:00 Other specified disorders of joint [facility] Care & of pelvic region and thigh [facility] 2022-10-20 00:00 Chronic pain [facility] 2022-10-20 00:00 Anxiety disorder, unspecified [facility] 2022-10-20 00:00 Other chronic pain [facility] 2022-10-20 00:00 Dermatitis, unspecified [facility] 2022-10-20 00:00 Bilateral primary osteoarthritis of [facility]-In [facility] & hip [facility] [place] 2022-10-20 00:00 Pain in unspecified knee [facility] [place] 2022-10-20 00:00 Other specified joint disorders, Walk- In Clinic Primary Care & unspecified hip [facility] 2022-10-21 00:00 Anxiety state, unspecified [facility] 2022-10-21 00:00 Knee pain [facility] [place] 2022-10-21 00:00 Eczema [facility] 2022-10-21 00:00 Femoral acetabular impingement Walk[facility]In [facility] 2022-10-21 00:00 Anxiety [facility] 2022-10-21 00:00 Arthritis of hip [facility] 2022-10-21 00:00 Contact dermatitis and other Walk-In [facility] Primary Care & eczema, unspecified cause [facility] 2022-10-21 00:00 Arthropathy unspecified, involving [facility] Care & pelvic region and thigh [facility] 2022-10-21 00:00 Pain in joint involving lower leg Walk -In [facility] 2022-10-21 00:00 Other specified disorders of joint [facility] Care & of pelvic region and thigh [facility] 2022-10-21 00:00 Chronic pain [facility] 2022-10-21 00:00 Anxiety disorder, unspecified [facility] 2022-10-21 00:00 Other chronic pain [facility] 2022-10-21 00:00 Dermatitis, unspecified [facility] [place] 2022-10-21 00:00 Bilateral primary osteoarthritis of [facility]-In Clinic Primary Care & hip [facility] 2022-10-21 00:00 Pain in unspecified knee [facility] 2022-10-21 00:00 Other specified joint disorders, Walk- In Clinic Primary Care & unspecified hip [facility] [place] 2022-10-24 00:00 Anxiety state, unspecified [facility] [place] 2022-10-24 00:00 Knee pain [facility] 2022-10-24 00:00 Eczema [facility] 2022-10-24 00:00 Femoral acetabular impingement Walk[facility]In [facility] 2022-10-24 00:00 Anxiety [facility] 2022-10-24 00:00 Arthritis of hip [facility] 2022-10-24 00:00 Contact dermatitis and other Walk-In [facility] Primary Care & eczema, unspecified cause [facility] 2022-10-24 00:00 Arthropathy unspecified, involving [facility] Care & pelvic region and thigh [facility] 2022-10-24 00:00 Pain in joint involving lower leg Walk -In [facility] 2022-10-24 00:00 Other specified disorders of joint [facility] Care & of pelvic region and thigh [facility] 2022-10-24 00:00 Chronic pain [facility] 2022-10-24 00:00 Anxiety disorder, unspecified [facility] 2022-10-24 00:00 Other chronic pain [facility] 2022-10-24 00:00 Dermatitis, unspecified [facility] 2022-10-24 00:00 Bilateral primary osteoarthritis of [facility]-In [facility] Primary Care & hip [facility] [place] 2022-10-24 00:00 Pain in unspecified knee [facility] 2022-10-24 00:00 Other specified joint disorders, Walk- In Clinic Primary Care & unspecified hip [facility] [place] 2022-10-26 00:00 Anxiety state, unspecified [facility] 2022-10-26 00:00 Knee pain [facility] 2022-10-26 00:00 Eczema Walk[facility] 2022-10-26 00:00 Femoral acetabular impingement Walk[facility]In [facility] 2022-10-26 00:00 Anxiety [facility] 2022-10-26 00:00 Arthritis of hip [facility] 2022-10-26 00:00 Contact dermatitis and other Walk-In [facility] Primary Care & eczema, unspecified cause [facility] 2022-10-26 00:00 Arthropathy unspecified, involving [facility] Primary Care & pelvic region and thigh [facility] 2022-10-26 00:00 Pain in joint involving lower leg Walk -In [facility] 2022-10-26 00:00 Other specified disorders of joint [facility] Primary Care & of pelvic region and thigh [facility] 2022-10-26 00:00 Chronic pain Walk[facility] 2022-10-26 00:00 Anxiety disorder, unspecified [facility] 2022-10-26 00:00 Other chronic pain [facility] 2022-10-26 00:00 Dermatitis, unspecified [facility] [place] 2022-10-26 00:00 Bilateral primary osteoarthritis of [facility]-In Clinic Primary Care & hip [facility]illary Services [facility] 2022-10-26 00:00 Pain in unspecified knee [facility] 2022-10-26 00:00 Other specified joint disorders, Walk- In Clinic Primary Care & unspecified hip Ancillary Services [facility] 2022-10-27 00:00 Anxiety state, unspecified [facility] 2022-10-27 00:00 Knee pain [facility] [place] 2022-10-27 00:00 Eczema Walk[facility] [place] 2022-10-27 00:00 Femoral acetabular impingement [facility] [place] 2022-10-27 00:00 Anxiety Walk[facility] 2022-10-27 00:00 Arthritis of hip Walk[facility]In [facility] 2022-10-27 00:00 Contact dermatitis and other Walk-In [facility] Primary Care & eczema, unspecified cause [facility] 2022-10-27 00:00 Arthropathy unspecified, involving [facility] Primary Care & pelvic region and thigh [facility] 2022-10-27 00:00 Pain in joint involving lower leg Walk -In [facility] & [facility] Services [facility] 2022-10-27 00:00 Other specified disorders of joint [facility] Primary Care & of pelvic region and thigh [facility] 2022-10-27 00:00 Chronic pain Walk[facility] 2022-10-27 00:00 Anxiety disorder, unspecified [facility]In [facility] 2022-10-27 00:00 Other chronic pain [facility] 2022-10-27 00:00 Dermatitis, unspecified Walk[facility]In [facility] 2022-10-27 00:00 Bilateral primary osteoarthritis of [facility]-In Clinic Primary Care & hip Ancillary Services [facility] 2022-10-27 00:00 Pain in unspecified knee [facility] 2022-10-27 00:00 Other specified joint disorders, Walk- In Clinic Primary Care & unspecified hip Ancillary Services [facility] 2022-10-28 00:00 Anxiety state, unspecified [facility] 2022-10-28 00:00 Knee pain Walk[facility] 2022-10-28 00:00 Eczema Walk[facility] [place] 2022-10-28 00:00 Femoral acetabular impingement [facility] [place] 2022-10-28 00:00 Anxiety [facility] [place] 2022-10-28 00:00 Arthritis of hip [facility] [place] 2022-10-28 00:00 Contact dermatitis and other Walk[facility]In [facility] Primary Care & eczema, unspecified cause [facility] 2022-10-28 00:00 Arthropathy unspecified, involving [facility] Primary Care & pelvic region and thigh [facility] 2022-10-28 00:00 Pain in joint involving lower leg Walk -[facility] [place] 2022-10-28 00:00 Other specified disorders of joint [facility] Primary Care & of pelvic region and thigh [facility] 2022-10-28 00:00 Abdominal pain, right lower Walk-In Cl [facility] Primary Care & quadrant [facility]illary Services [facility] 2022-10-28 00:00 Chronic pain Walk[facility] [place] 2022-10-28 00:00 Anxiety disorder, unspecified [facility] [place] 2022-10-28 00:00 Other chronic pain [facility] [place] 2022-10-28 00:00 Dermatitis, unspecified Walk[facility]In [facility] Services [facility] 2022-10-28 00:00 Bilateral primary osteoarthritis of [facility]-In [facility] Primary Care & hip [facility] [place] 2022-10-28 00:00 Pain in unspecified knee Walk[facility] & [facility]illary Services [facility] 2022-10-28 00:00 Other specified joint disorders, Walk- In Clinic Primary Care & unspecified hip [facility] [place] 2022-10-28 00:00 Right lower quadrant pain Walk-In Clin [facility] [place] 2022-10-31 00:00 Anxiety state, unspecified [facility] 2022-10-31 00:00 Knee pain [facility] [place] 2022-10-31 00:00 Eczema Walk[facility] [place] 2022-10-31 00:00 Femoral acetabular impingement [facility] [place] 2022-10-31 00:00 Anxiety [facility] [place] 2022-10-31 00:00 Arthritis of hip [facility] [place] 2022-10-31 00:00 Contact dermatitis and other Walk-In [facility] Primary Care & eczema, unspecified cause [facility] 2022-10-31 00:00 Arthropathy unspecified, involving [facility] Primary Care & pelvic region and thigh [facility] 2022-10-31 00:00 Pain in joint involving lower leg Walk [facility] [place] 2022-10-31 00:00 Other specified disorders of joint [facility] Primary Care & of pelvic region and thigh Anc[facility] 2022-10-31 00:00 Chronic pain Walk[facility] 2022-10-31 00:00 Anxiety disorder, unspecified Walk[facility]In [facility] & [facility] Services [facility] 2022-10-31 00:00 Other chronic pain Walk[facility] [place] 2022-10-31 00:00 Dermatitis, unspecified [facility] [place] 2022-10-31 00:00 Bilateral primary osteoarthritis of [facility]-In [facility] Primary Care & hip [facility] [place] 2022-10-31 00:00 Pain in unspecified knee [facility] & [facility] Services [facility] 2022-10-31 00:00 Other specified joint disorders, Walk- In Clinic Primary Care & unspecified hip [facility] [place] 2022-11-09 00:00 Anxiety state, unspecified [facility] [place] 2022-11-09 00:00 Knee pain [facility] [place] 2022-11-09 00:00 Eczema Walk[facility] [place] 2022-11-09 00:00 Femoral acetabular impingement Walk[facility] [place] 2022-11-09 00:00 Anxiety Walk[facility] [place] 2022-11-09 00:00 Arthritis of hip Walk[facility]In [facility] [place] 2022-11-09 00:00 Contact dermatitis and other Walk[facility]In [facility] Primary Care & eczema, unspecified cause Ancillary Serv ices [facility] 2022-11-09 00:00 Arthropathy unspecified, involving [facility] and thigh [facility] 2022-11-09 00:00 Pain in joint involving lower leg [facility] [place] 2022-11-09 00:00 Other specified disorders of joint [facility] of pelvic region and thigh Ancillary Ser vices [facility] 2022-11-09 00:00 Chronic pain [facility] [place] 2022-11-09 00:00 Anxiety disorder, unspecified [facility] [place] 2022-11-09 00:00 Other chronic pain [facility] [place] 2022-11-09 00:00 Dermatitis, unspecified [facility] [place] 2022-11-09 00:00 Bilateral primary osteoarthritis of [facility] [place] 2022-11-09 00:00 Pain in unspecified knee [facility] 2022-11-09 00:00 Other specified joint disorders, [facility] & unspecified hip [facility] [place] Procedures date description facility 2022-10-18 00:00 Visit Code Hold [facility] 2022-10-18 00:00 US ABDOMEN, LIMITED [facility] 2022-10-18 00:00 CULT WOUND AEROBIC [facility] Ancillary [...] & Ancillary Services [facility] Result panel 15 (unknown) (no date) (unknown) [facility] (no value) (units ([facility] nown) Clinic Primary unknown) Care & [facility] Result panel 16 (unknown) (no date) (unknown) [facility] value[facility]units [facility] Clinic Primary unknown) [facility] Result panel 17 (unknown) (no date) (unknown) [facility]no value[facility]units ([facility]own[facility] Clinic Primary unknown) [facility] Result panel 18 (unknown) (no date) (unknown) [facility] (no value) (units ([facility] nown[facility] Clinic Primary unknown) [facility] Result panel 19 (unknown) (no date) (unknown) [facility]no value[facility] (units ([facility]own[facility] Clinic Primary unknown) [facility] Result panel 20 (unknown) (no date) (unknown) [facility] (no value[facility]units ([facility]own[facility] Clinic Primary unknown) [facility] Result panel 21 (unknown) (no date) (unknown) [facility] (no value) (units ([facility] nown[facility] Clinic Primary unknown) [facility] Result panel 22 (unknown) (no date) (unknown) [facility] (no value) (units ([facility] nown) Clinic Primary unknown) Care [facility] Result panel 23 (unknown) (no date) (unknown) [facility] (no value) (units ([facility] nown) Clinic Primary unknown) [facility] Result panel 24 (unknown) (no date) (unknown) [facility] (no value) (units ([facility] nown) Clinic Primary unknown) [facility] Result panel 25 (unknown) (no date) (unknown) [facility] (no value) (units ([facility] nown) Clinic Primary unknown) [facility] Result panel 26 (unknown) (no date) (unknown) [facility] (no value) (units ([facility] nown) Clinic Primary unknown) [facility] Social History date description facility 2022-10-18 00:00 Former smoker [facility] Vital Signs date measurement value units 2022-10-18 00:00 BMI 39.06 kg/m2 2022-10-18 00:00 BP_diastolic 62 mmHg 2022-10-18 00:00 BP_systolic 110 mmHg 2022-10-18 00:00 height_metric 154.94 cm 2022-10-18 00:00 height_standard 61 in 2022-10-18 00:00 temperature_metric 36.72 C 2022-10-18 00:00 temperature_standard 98.1 F 2022-10-18 00:00 weight_metric 93.44 kg 2022-10-18 00:00 weight_standard 206 lb
[2022-12-19 20:32] VITALS: BP 147/99
--- NOTE | 2022-12-19 20:49 | ED Physician Documentation ---
History of Present Illness - Stated complaint Stated Complaint: SOA THROAT SWELLING - Chief complaint Chief Complaint: Heent - History obtained from History obtained from: Patient - History of Present Illness Timing: Today - Additonal information Additional information: Patient is a 47-year-old female presents to the emergency department stating that she had a vocal cord prosthesis placed at the [facility] on November 30. She states that today she feels like she is having difficulty breathing and speaking. She states she is eating and drinking without difficulty. She states it feels like the prosthesis has moved. No fevers. No chills. No cough. No congestion. No nausea or vomiting. No diarrhea. Review of Systems Constitutional: denies: Fever Respiratory: denies: Cough GI: denies: Vomiting PD PAST MEDICAL HISTORY - Past Medical History Cardiovascular: Hypertension Respiratory: Shortness of breath, Other Neuro: Other Endocrine/Autoimmune: None GI: GERD OCCUPATIONAL THER: None : Incontinence, Renal insuffiency, Frequency HEENT:  Psych: Depression, Anxiety, Panic attacks, Post traumatic stress disorder, Claustrophobia Musculoskeletal: Osteoarthritis, Chronic back pain, Other Derm: Other - Past Surgical History Past Surgical History: Yes Ortho: Other /OCCUPATIONAL THER: section Neuro: Other - Present Medications Home Medications: Ambulatory Orders Medication Instructions Recorded Confirmed Albuterol Sulfate [Proair Hfa 2 puffs INH Q4H PRN 05/26/22 05/31/22 Inhaler] Amitriptyline [Elavil] 10 mg PO QPM 05/26/22 05/31/22 Baclofen [Lioresal] 10 mg PO BID PRN 05/26/22 05/31/22 Escitalopram Oxalate 20 mg PO DAILY 05/26/22 06/07/22 Gabapentin [Neurontin] 300 mg PO TID 05/26/22 06/09/22 Lisinopril/Hydrochlorothiazide 2 tab PO DAILY 05/26/22 06/07/22 [Zestoretic 20-12.5 mg Tablet] Ondansetron Odt [Zofran Odt] 4 mg PO Q4HR PRN 05/26/22 05/31/22 Pantoprazole Sodium 20 mg PO DAILY PRN 05/26/22 05/31/22 tiZANidine [Zanaflex] 4 mg PO BID PRN 05/26/22 05/31/22 Cyclobenzaprine [Flexeril] 10 mg PO TID PRN 05/31/22 05/31/22 Acetaminophen [Acetaminophen Extra 1,000 mg PO Q8H PRN #60 tablet 06/10/22 Strength] Docusate Sodium 100Mg Capsule 100 - 200 mg PO BID PRN #60 cap 06/10/22 [Colace 100Mg Capsule] Ibuprofen [Motrin] 600 mg PO Q6H PRN #30 tab 06/10/22 Metoclopramide [Reglan] 10 mg PO Q6H PRN #20 tablet 06/10/22 oxyCODONE [Roxicodone] 2.5 - 5 mg PO Q4H PRN #24 tablet 06/10/22 Gabapentin [Neurontin] 300 mg PO TID #60 cap 10/26/22 Oxycodone HCl/Acetaminophen 1 - 2 each PO Q6H PRN #20 tablet 10/26/22 [Percocet 5-325 mg Tablet] predniSONE [Deltasone] 20 mg PO [id number] #21 tab 10/26/22 - Allergies Allergies/Adverse Reactions: Allergies Allergy/AdvReac Type Severity Reaction Status Date / Time nortriptyline Allergy Unknown Verified 12/19/22 20:34 duloxetine [From Cymbalta] AdvReac Severe Unknown Verified 12/19/22 20:34 sertraline [From Zoloft] AdvReac Severe Unknown Verified 12/19/22 20:34 venlafaxine AdvReac Severe Unknown Verified 12/19/22 20:34 fluoxetine [From Prozac] AdvReac Intermediate Unknown Verified 12/19/22 20:34 - Social History Does the pt smoke?: Yes Smoking Status: Former smoker Does the pt drink ETOH?: Yes Does the pt have substance abuse?: Yes - Immunizations Immunizations are current?: Yes - POLST Patient has POLST: No PD ED PE NORMAL - Vitals Vital signs reviewed: Yes - General General: Alert and oriented X 3, No acute distress - HEENT HEENT: Moist mucous membranes, Pharynx benign - Neck Neck: Supple, no meningeal sign, Other (No signs of infection over surgical scars No stridor. No wheezing.) - Cardiac Cardiac: RRR, Strong equal pulses - Respiratory Respiratory: No respiratory distress, Clear bilaterally - Derm Derm: Warm and dry - Neuro Neuro: Alert and oriented X 3 Results - Vitals Vitals: Vital Signs - 24 hr 12/19/22 12/19/22 12/19/22 20:25 20:48 22:36 Temperature 37 C Heart Rate 76 75 85 Respiratory 17 16 Rate Blood Pressure 147/99 H O2 Saturation 97 97 100 Oxygen O2 Source Room air - Labs Labs: Laboratory Tests 12/19/22 12/19/22 22:12 22:12 WBC 8.0 RBC 4.14 L Hgb 12.4 Hct 38.5 MCV 93.0 MCH 30.0 MCHC 32.2 RDW 13.2 Plt Count 181 MPV 12.4 H Neut # (Auto) 5.0 Lymph # (Auto) 2.1 [place] # (Auto) 0.7 Eos # (Auto) 0.2 Baso # (Auto) 0.1 Absolute Nucleated RBC 0.00 Nucleated RBC % 0.0 Sodium 140 Potassium 3.2 L Chloride 105 Carbon Dioxide 29 Anion Gap 6.0 BUN 10 Creatinine 0.7 Estimated GFR (MDRD) 89 Glucose 99 Calcium 8.9 PD Medical Decision Making - ED course Complexity details: reviewed results, considered differential, d/w patient, d/w payroll consultant ED course: Discussed the case with ENT on-call at the [facility]. They recommend follow-up in the office. They do not recommend any imaging at this time. White blood cell count is normal. No fevers. Symptoms do not seem to be worsening. No acute findings on CBC or laboratory testing other than a mild hypokalemia. We will have the patient follow-up with her ENT for further care. No stridor. No wheezing. Eating and drinking without difficulty. Patient counseled regarding signs and symptoms for which I believe and urgent re- evaluation would be necessary. Patient with good understanding of and agreement to plan and is comfortable going home at this time This document was made in part using voice recognition software. While efforts are made to proofread this document, sound alike and grammatical errors may occur. Departure - Departure Disposition: 01 Home, Self Care Clinical Impression: History of thyroplasty, Laryngeal pain Condition: Good Instructions: Dysfunction Vocal Cord Follow-Up: your,ENT tomorrow [Other] Comments: I spoke with the [facility] ENT on-call tonight. He recommends following up in the office for further care. He states that your ENT should call you tomorrow to check on you. Please return if you worsen including increasing difficulty breathing, stridor, fevers or any other new or worsening symptoms. Of note the closest hospitals with ENT services are [facility] in [place] and [facility] in [place]. Discharge Date/Time: 12/19/22 23:03
[2022-12-19 22:19] LABS: BASOPHILS # (AUTO) 0.1 10^3/uL (0.0-0.1); BASOPHILS % (AUTO) 0.6 %; EOSINOPHILS # (AUTO) 0.2 10^3/uL (0.0-0.7); EOSINOPHILS % (AUTO) 2.5 %; HCT - HEMATOCRIT 38.5 % (37.0-47.0); HGB - HEMOGLOBIN 12.4 g/dL (12.0-16.0); LYMPHOCYTES # (AUTO) 2.1 10^3/uL (1.5-3.5); LYMPHOCYTES % (AUTO) 25.8 %; MEAN CORPUSCULAR HGB CONC 32.2 g/dL (32.0-36.0); MEAN PLATELET VOLUME 12.4 fL (7.9-10.8); MONOCYTES # (AUTO) 0.7 10^3/uL (0.0-1.0); MONOCYTES % (AUTO) 8.5 %; NEUTROPHILS % (AUTO) 62.5 %; PLT - PLATELET COUNT 181 10^3/uL (130-450); RED BLOOD COUNT 4.14 10^6/uL (4.20-5.40); RED CELL DISTRIBUTION WIDTH 13.2 % (12.0-15.0)
[2022-12-19 22:30] LABS: CALCIUM 8.9 mg/dL (8.5-10.3); CREATININE 0.7 mg/dL (0.4-1.0); POTASSIUM 3.2 mmol/L (3.5-5.0)
== END 2022-12-19 23:03 | disposition home or self-care (01) ==
LOC: ED 20:12
DX: Z98.890 Other specified postprocedural states (principal); R07.0 Pain in throat; I10 Essential (primary) hypertension; Z87.891 Personal history of nicotine dependence
CPT/HCPCS: 36415; 80048; 85025; 99283; 99284

== ENCOUNTER 2022-12-22 17:23 | Outpatient (CLI) | payer MEDICAID ==
--- NOTE | 2022-12-22 23:19 | CT Report ---
PROCEDURE: CERVICAL SPINE WO INDICATIONS: CERVICAL SPINE FUSION TECHNIQUE: Noncontrast 3 mm thick sections acquired from the skull base to the T4 level. Sagittal and coronal r eformats were then constructed. For radiation dose reduction, the following was used: automated exp osure control, adjustment of mA and/or kV according to patient size. COMPARISON: 09/09/2021. Correlation is also made with cervical spine MRI, 10/27/2022. FINDINGS: Image quality: There is artifact associated with the metallic hardware. Bones: No fractures or dislocations. Visualized superior ribs are intact. Anterior fixation hardware is seen at the C7-T1 level. A C7-T1 disc spacer is seen. No findings of jerez rdware failure or hardware loosening can be seen. There is mild to moderate disc space narrowing seen at C3-C4 and C4-C5, with at least moderate disc s pace narrowing seen at C5-C6 and the C6-C7. Posteriorly directed endplate osteophytes are seen, which are worst at C5-C6 and at C6-C7. Soft tissues: Prevertebral soft tissues are normal in thickness. No paravertebral hematomas. No ap ical pneumothoraces. IMPRESSION: Intact appearing anterior fixation hardware seen at C7-T1. Cervical spine degenerative changes are seen, which are worst inferiorly. Reviewed by: David Azevedo MD on 12/22/2022 10:18 PM [facility] Approved by: David Azevedo MD on 12/22/2022 10:18 PM [facility]B Station ID: [id number]
== END 2022-12-22 17:24 | disposition home or self-care (01) ==
LOC: DI 17:23
PROVIDERS: ATTEND Neurological Surgery
DX: M47.812 Spondylosis without myelopathy or radiculopathy, cervical region (principal); Z98.1 Arthrodesis status

== ENCOUNTER 2023-03-08 16:31 | Outpatient (CLI) | payer MEDICAID ==
--- NOTE | 2023-03-08 19:17 | MRI Report ---
PROCEDURE: BRAIN WO INDICATIONS: MEMORY LOSS TECHNIQUE: Noncontrast axial T1 spin echo, axial T2 fast spin echo, sagittal and axial FLAIR, coronal T2 fast sp in echo, axial gradient echo, axial diffusion and ADC through the brain. COMPARISON: 01/18/2022 FINDINGS: Image quality: Excellent. CSF Spaces: Basal cisterns are patent. No extra-axial fluid collections. Ventricles are normal in size and shape. Brain: No intracranial masses or hemorrhage. Hercules/white matter interface is normal. Brainstem appe ars normal. Diffusion-weighted images demonstrate no acute ischemic insult. No chronic ischemic ins ults. Normal intravascular flow voids are present. Skull and face: Calvarium has normal marrow signal. Orbits appear normal. Sinuses: Sinuses and mastoids are clear. IMPRESSION: Unremarkable brain MRI for age, stable from prior. Reviewed by: David Azevedo MD on 03/08/2023 6:16 PM SEB Approved by: David Azevedo MD on 03/08/2023 6:16 PM [facility] Station ID: [id number]
== END 2023-03-08 16:32 | disposition home or self-care (01) ==
LOC: DI 16:31
PROVIDERS: ATTEND Psychiatry & Neurology Neurology
DX: R41.3 Other amnesia (principal); G31.9 Degenerative disease of nervous system, unspecified; Z59.7 Insufficient social insurance and welfare support
CPT/HCPCS: 36415; 80061; 82175; 82607; 82746; 83655; 83721; 83735; 83825; 84425; 85651; 86140; 86780

== ENCOUNTER 2023-03-08 16:36 | Outpatient (CLI) | payer MEDICAID ==
[2023-03-08 18:15] LABS: CHOL/HDL RATIO 3.6 (<4.4); CHOLESTEROL 184 mg/dL; HDL CHOLESTEROL 51 mg/dL; LDL CHOLESTEROL,CALCULATED 104 mg/dL; MAGNESIUM 2.2 mg/dL (1.7-2.8); TRIGLYCERIDES 146 mg/dL; VLDL CHOLESTEROL 29 mg/dL
[2023-03-08 18:16] LABS: CRP - C-REACTIVE PROTEIN < 1.0 mg/dL (0-1.0)
[2023-03-08 18:38] LABS: FOLATE 16.71 ng/mL (5.90 - >24.8)
[2023-03-10 15:10] LABS: TREPONEMA PALLIDUM ANTIBODIES Non Reactive (Non Reactive)
== END 2023-03-08 16:37 | disposition home or self-care (01) ==
LOC: LAB 16:36
PROVIDERS: ATTEND Psychiatry & Neurology Neurology
DX: G31.9 Degenerative disease of nervous system, unspecified (principal); R41.3 Other amnesia
CPT/HCPCS: 36415; 80061; 82175; 82607; 82746; 83655; 83721; 83735; 83825; 84425; 85651; 86140; 86780

== ENCOUNTER 2023-03-17 13:19 | Outpatient (CLI) | payer MEDICAID ==
[2023-03-20 13:10] LABS: ARSENIC BLOOD None Detected ug/L (0-9); LEAD BLOOD <1.0 ug/dL (0.0-3.4); MERCURY BLOOD None Detected ug/L (0.0-14.9)
== END 2023-03-17 13:20 | disposition home or self-care (01) ==
LOC: LAB.S 13:19
PROVIDERS: ATTEND Registered Nurse
DX: R41.3 Other amnesia (principal)
CPT/HCPCS: 82175; 83655; 83825

== ENCOUNTER 2023-03-24 09:26 | Day surgery (SDC) | payer MEDICAID ==
[2023-03-24] MEDS ORDERED: LACTATED RINGERS 1,000 ML IV ONE (09:56)
--- NOTE | 2023-03-24 10:10 | ANESTHESIA ---
Pre-Anesthesia VS, & Labs - Diagnosis thickened cecum - Procedure colonoscopy Height: 5 ft 1 in Weight (kg): 87.1 kg Body Mass Index: 36.3 BMI Classification: Obese - NPO >8 hours - Is Patient ?: No - Lab Results Lab results reviewed: Yes Home Medications and Allergies Home Medications: Ambulatory Orders Gabapentin [Neurontin] 600 mg PO BID 03/23/23 Guanfacine HCl [Intuniv] 1 mg PO DAILY 03/23/23 Levothyroxine [Synthroid] 112 mcg PO QDAC 03/23/23 Multivitamin 1 each PO DAILY 03/23/23 [place]-3S/Dha/Epa/Fish Oil [Fish Oil 1,200 mg Softgel] 1 each PO DAILY 03/23/23 Solifenacin Succinate 5 mg PO DAILY 03/23/23 Vitamin B Complex [B-Complex] 1 each PO DAILY 03/23/23 Escitalopram Oxalate 20 mg PO DAILY 05/26/22 Lisinopril/Hydrochlorothiazide [Zestoretic 20-12.5 mg Tablet] 2 tab PO DAILY 05/26/22 Pantoprazole Sodium 20 mg PO DAILY PRN 05/26/22 tiZANidine [Zanaflex] 4 mg PO BID PRN 05/26/22 Cyclobenzaprine [Flexeril] 10 mg PO TID PRN 05/31/22 Gabapentin [Neurontin] 600 mg PO BID 03/23/23 Guanfacine HCl [Intuniv] 1 mg PO DAILY 03/23/23 Levothyroxine [Synthroid] 112 mcg PO QDAC 03/23/23 Multivitamin 1 each PO DAILY 03/23/23 [place]-3S/Dha/Epa/Fish Oil [Fish Oil 1,200 mg Softgel] 1 each PO DAILY 03/23/23 Solifenacin Succinate 5 mg PO DAILY 03/23/23 Vitamin B Complex [B-Complex] 1 each PO DAILY 03/23/23 Allergies/Adverse Reactions: Allergies Allergy/AdvReac Type Severity Reaction Status Date / Time nortriptyline Allergy Unknown Verified 03/23/23 15:47 duloxetine [From Cymbalta] AdvReac Severe Unknown Verified 03/23/23 15:47 sertraline [From Zoloft] AdvReac Severe Unknown Verified 03/23/23 15:47 venlafaxine AdvReac Severe Unknown Verified 03/23/23 15:47 fluoxetine [From Prozac] AdvReac Intermediate Unknown Verified 03/23/23 15:47 Anes History & Medical History - Anesthetic History Anesthesia Complications: reports: No previous complications Family history of Anesthesia Complications: Denies Family history of Malignant Hyperthermia: Denies - Medical History Cardiovascular: reports: Hypertension Pulmonary: reports: None Gastrointestinal: reports: GERD Urinary: reports: Incontinence Neuro: reports: Other Musculoskeletal: reports: Osteoarthritis, Chronic back pain Endocrine/Autoimmune: reports: HyPOthyroidism Blood Disorders: reports: None Skin: reports: None Smoking Status: Former smoker Psychosocial: reports: Cannabis - Surgical History Gynecologic: reports: section, Hysterectomy Neurologic: reports: Other Orthopedic: reports: Spine surgery, Other Exam General: Alert, Oriented x3, Cooperative Dental: Loose/Frag (several loose upper teeth, ,5,6,9,10) Mouth Openin Fingerbreadth Neck Mobility: Limited Mallampati classification: II Thyromental Distance: 4-6 cm Respiratory: Lungs clear Cardiovascular: Regular rate Plan Anesthesia Type: MAC Consent for Procedure(s) Verified and Reviewed: No Code Status: Attempt Resuscitation ASA classification: 2-Mild systemic disease Is this case an emergency?: No
--- NOTE | 2023-03-24 10:11 | HISTORY & PHYSICAL EXAMINATION ---
Chief Complaint - Chief Complaint Chief Complaint: here for colonoscopy History of Present Illness - History Obtained From Records Reviewed: yes History obtained from: pt Exam Limitations: none - History of Present Illness HPI Comment/Other: history of abdominal discomfort and ct abdomen. ct possible abnormal cecum with thickening History - Past Medical History Cardiovascular: reports: Hypertension Respiratory: reports: None Neuro: reports: Other Endocrine/Autoimmune: reports: HyPOthyroidism GI: reports: GERD CATHOLIC PRIEST: reports: None : reports: Incontinence HEENT: reports: None Psych: reports: Depression, Anxiety, Panic attacks Musculoskeletal: reports: Osteoarthritis, Chronic back pain Derm: reports: None MRSA Hx?: No - Past Surgical History Ortho: reports: Spine surgery, Other /CATHOLIC PRIEST: reports: section, Hysterectomy Neuro: reports: Other - Family & Social History Family History Comment/Other: No diseases run in the family Living Situation: With family (Her mother lives there as well as her 18 and 13-year-old children) Social History Notes: She quit smoking 2 years ago. She drinks alcohol very rarely. She occasionally uses edible marijuana. 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 - Substance History Use: Uses substance without health or social issues: NONE - POLST Patient has POLST: No Meds/Allgy - Home Medications Home Medications: Ambulatory Orders Medication Instructions Recorded Confirmed Escitalopram Oxalate 20 mg PO DAILY 05/26/22 03/23/23 Lisinopril/Hydrochlorothiazide 2 tab PO DAILY 05/26/22 03/23/23 [Zestoretic 20-12.5 mg Tablet] Pantoprazole Sodium 20 mg PO DAILY PRN 05/26/22 03/23/23 tiZANidine [Zanaflex] 4 mg PO BID PRN 05/26/22 03/23/23 Cyclobenzaprine [Flexeril] 10 mg PO TID PRN 05/31/22 03/23/23 Acetaminophen [Acetaminophen Extra 1,000 mg PO Q8H PRN #60 tablet 06/10/22 03/23/23 Strength] Gabapentin [Neurontin] 600 mg PO BID 03/23/23 03/23/23 Guanfacine HCl [Intuniv] 1 mg PO DAILY 03/23/23 03/23/23 Levothyroxine [Synthroid] 112 mcg PO QDAC 03/23/23 03/23/23 Multivitamin 1 each PO DAILY 03/23/23 03/23/23 [place]-3S/Dha/Epa/Fish Oil [Fish 1 each PO DAILY 03/23/23 03/23/23 Oil 1,200 mg Softgel] Solifenacin Succinate 5 mg PO DAILY 03/23/23 03/23/23 Vitamin B Complex [B-Complex] 1 each PO DAILY 03/23/23 03/23/23 - Allergies Allergies/Adverse Reactions: Allergies Allergy/AdvReac Type Severity Reaction Status Date / Time nortriptyline Allergy Unknown Verified 03/23/23 15:47 duloxetine [From Cymbalta] AdvReac Severe Unknown Verified 03/23/23 15:47 sertraline [From Zoloft] AdvReac Severe Unknown Verified 03/23/23 15:47 venlafaxine AdvReac Severe Unknown Verified 03/23/23 15:47 fluoxetine [From Prozac] AdvReac Intermediate Unknown Verified 03/23/23 15:47 Review of Systems - Other Findings Other Findings: 10 pt ros as above otherwise unremarkable Exam - Physical Exam General Appearance: positive: No acute distress, Alert Eyes Bilateral: positive: PERRL, EOMI, No scleral icterus ENT: positive: No signs of dehydration Neck: positive: No JVD, Trachea midline Respiratory: positive: No respiratory distress Cardiovascular: positive: Regular rate & rhythm Abdomen: positive: No distention Neurologic/Psychiatric: positive: Oriented x3 Conclusion/Plan - Problem List (1) S/P abdominal hysterectomy Conclusion/Plan: ct scan done for abdominal pain. possible abnormal cecum with thickening. plan colonoscopy with biopsies. parq held and consent obtained
[2023-03-24] MEDS ORDERED: PROPOFOL 500 MG/50 ML 500 MG/50 ML VIAL ONE (10:24)
[2023-03-24] MEDS ORDERED: PROPOFOL 200 MG/20 ML VIAL IVP ONE ×2 (10:48→11:49)
[2023-03-24] MEDS ORDERED: LACTATED RINGERS 700 ML IV ONE (11:00)
--- NOTE | 2023-03-24 11:42 | ANESTHESIA POST OP EVALUATION ---
Anesthesia Post Eval - Post Anesthesia Eval Vitals: Last Vital Signs Temp 36.2 C L 03/24/23 11:06 Pulse 63 03/24/23 11:06 Resp 16 03/24/23 11:06 BP 122/70 03/24/23 11:06 Pulse Ox 99 03/24/23 11:06 O2 Flow Rate CV Function Including HR & BP: Stable Pain Control: Satisfactory Nausea & Vomiting: Negative Mental Status: Baseline Respiratory Status: Airway Patent Hydration Status: Satisfactory Anesthesia Complications: None
[2023-03-24 12:14] VITALS: BP 114/62
== END 2023-03-24 09:27 | disposition home or self-care (01) ==
LOC: SDS 09:26
PROVIDERS: ATTEND Surgery
PROC: 0DBB8ZX Excision of Ileum, Via Natural or Artificial Opening Endoscopic, Diagnostic (ICD-10-PCS; 2023-03-24)
PROC: 0DBH8ZX Excision of Cecum, Via Natural or Artificial Opening Endoscopic, Diagnostic (ICD-10-PCS; principal; 2023-03-24 10:30)
DX: R93.3 Abnormal findings on diagnostic imaging of other parts of digestive tract (principal); R10.9 Unspecified abdominal pain; E66.9 Obesity, unspecified; Z68.36 Body mass index [BMI] 36.0-36.9, adult; Z87.891 Personal history of nicotine dependence
CPT/HCPCS: 45380; J7120

== ENCOUNTER 2023-07-02 00:29 | Outpatient (CLI) | payer MEDICAID | END 2023-07-02 23:59 | disposition critical access hospital (66) | LOC: EMS 00:29 | DX: R10.32 Left lower quadrant pain (principal); M54.50 Low back pain, unspecified; R11.2 Nausea with vomiting, unspecified | CPT/HCPCS: A0425; A0427; A0999 ==

== ENCOUNTER 2023-07-04 08:30 | Outpatient (CLI) | payer MEDICAID ==
[2023-07-04 15:35] LABS: BASOPHILS # (AUTO) 0.1 10^3/uL (0.0-0.1); BASOPHILS % (AUTO) 0.8 %; EOSINOPHILS # (AUTO) 0.4 10^3/uL (0.0-0.7); EOSINOPHILS % (AUTO) 4.3 %; HCT - HEMATOCRIT 43.8 % (37.0-47.0); HGB - HEMOGLOBIN 14.1 g/dL (12.0-16.0); LYMPHOCYTES # (AUTO) 2.1 10^3/uL (1.5-3.5); LYMPHOCYTES % (AUTO) 24.7 %; MEAN CORPUSCULAR HEMOGLOBIN 31.2 pg (27.0-31.0); MEAN CORPUSCULAR HGB CONC 32.2 g/dL (32.0-36.0); MEAN CORPUSCULAR VOLUME 96.9 fL (81.0-99.0); MONOCYTES # (AUTO) 0.7 10^3/uL (0.0-1.0); MONOCYTES % (AUTO) 7.9 %; NEUTROPHILS # (AUTO) 5.3 10^3/uL (1.5-6.6); NEUTROPHILS % (AUTO) 62.1 %; RED BLOOD COUNT 4.52 10^6/uL (4.20-5.40); RED CELL DISTRIBUTION WIDTH 13.3 % (12.0-15.0); WHITE BLOOD COUNT 8.6 x10^3/uL (4.8-10.8)
[2023-07-04 15:58] LABS: ALBUMIN 4.3 g/dL (3.2-5.5); ALKALINE PHOSPHATASE 58 IU/L (42-121); ALT ALANINE AMINOTRANSFERASE 14 IU/L (10-60); AST ASPARTATE AMINOTRANSFERASE 15 IU/L (10-42); BILIRUBIN,TOTAL 0.6 mg/dL (0.2-1.0); BUN - BLOOD UREA NITROGEN 10 mg/dL (6-20); CALCIUM 9.1 mg/dL (8.5-10.3); CARBON DIOXIDE - CO2 32 mmol/L (21-32); CHLORIDE 102 mmol/L (101-111); CHOL/HDL RATIO 3.2 (<4.4); CHOLESTEROL 178 mg/dL; GFR - MDRD 59 (>89); GLUCOSE 90 mg/dL (74-104); HDL CHOLESTEROL 55 mg/dL; LDL CHOLESTEROL,CALCULATED 84 mg/dL; LDL/HDL RATIO 1.5 (<4.4); POTASSIUM 3.5 mmol/L (3.5-4.5); SODIUM 140 mmol/L (135-145); TOTAL PROTEIN 6.5 g/dL (6.4-8.9); TRIGLYCERIDES 195 mg/dL (48-352); VLDL CHOLESTEROL 39 mg/dL
[2023-07-04 16:03] LABS: THYROID STIMULATING HORMONE 2.49 uIU/mL (0.34-5.60)
[2023-07-04 17:12] LABS: PLATELET ESTIMATE, MANUAL NORMAL (130-450,000) (NORMAL); PLATELET MORPHOLOGY PLATELET CLUMPING (NORMAL); SLIDE REVIEW? Indicated
[2023-07-04 20:14] LABS: ESTIMATED AVERAGE GLUCOSE 100 mg/dL (70-100); HEMOGLOBIN A1c% 5.1 % (4.27-6.07)
== END 2023-07-04 08:31 | disposition home or self-care (01) ==
LOC: LAB.S 08:30
PROVIDERS: ATTEND Physician Assistant Medical
DX: E03.9 Hypothyroidism, unspecified (principal); Z13.9 Encounter for screening, unspecified
CPT/HCPCS: 36415; 80053; 80061; 83036; 83721; 84443; 85025

== ENCOUNTER 2023-07-13 16:42 | Outpatient (CLI) | payer MEDICAID ==
[~2023-07-13 16:42] MED LIST: GADOTERATE MEGLUMINE 10 MMOL/20 ML VIAL ONE
[2023-07-13] MEDS ORDERED: GADOTERATE MEGLUMINE 10 MMOL/20 ML VIAL IVP ONE (18:09)
--- NOTE | 2023-07-14 09:57 | MRI Report ---
PROCEDURE: PELVIS W/WO INDICATIONS: PELVIC MASS TECHNIQUE: Multiple MR images obtained of the pelvis using multiple sequences and multiple planes wit h and without contrast. COMPARISON: 07/02/2023 CT and MRI. 05/26/2022 MRI FINDINGS: Image quality: Good Lower abdomen: No bowel obstruction. No pathologic ascites. Bladder: Unremarkable Reproductive organs: Interval hysterectomy compared to 2021. The right ovary is small and unremarkable. There is an intrinsically T1 hyperintense lesion in the left ovary measuring 3.3 x 2.7 x 2.7 cm. Ther e are internal septations. The wall is mildly thickened, with small areas of enhancement that is tejal stinguishable from the surrounding ovarian stroma. On precontrast T1-weighted images, no evidence of deep pelvic endometriosis deposits. Rectum: Unremarkable Vessels and lymph nodes: No aneurysmal vessel. No pathologic lymph nodes by size criteria. Pelvic wall: There is a 1.1 cm right labial lesion, with intrinsic T1 signal. Bones: No acute or suspicious osseous finding. IMPRESSION: A 3.3 x 2.7 cm intrinsically T1 hyperintense lesion is seen in the left ovary, with thin enhancing wa ll and septations. No evidence of endometrioma or deep pelvic endometriosis seen on prior MRI in 2021 , thus this is favored to represent a degenerating corpus luteum and/or hemorrhagic cyst. In this dem ographic (post hysterectomy, under 50), this is favored to be benign, however follow-up ultrasound or MRI is recommended in 6-12 weeks for surveillance. This appears slightly smaller than CT from [facility] 2022. Endometrioma and early cystic neoplasm are less likely considerations. Incidentally noted small right Colerain's or Bartholin's gland cyst. Reviewed by: Florentino Gilbert MD on 07/14/2023 9:55 AM PDT Approved by: Florentino Gilbert MD on 07/14/2023 9:55 AM PDT Station ID: [id number]
== END 2023-07-13 16:43 | disposition home or self-care (01) ==
LOC: DI 16:42
PROVIDERS: ATTEND Obstetrics & Gynecology
DX: N83.9 Noninflammatory disorder of ovary, fallopian tube and broad ligament, unspecified (principal)
CPT/HCPCS: 72197; A9575

== ENCOUNTER 2023-08-13 23:58 | Outpatient (CLI) | payer MEDICAID | END 2023-08-13 23:59 | disposition critical access hospital (66) | LOC: EMS 23:58 | DX: R55 Syncope and collapse (principal); S01.81XA Laceration without foreign body of other part of head, initial encounter; R15.9 Full incontinence of feces; R42 Dizziness and giddiness; R03.1 Nonspecific low blood-pressure reading; W18.39XA Other fall on same level, initial encounter; Y92.002 Bathroom of unspecified non-institutional (private) residence as the place of occurrence of the external cause | CPT/HCPCS: A0425; A0427; A0999 ==

== ENCOUNTER 2023-08-14 00:24 | Emergency (ER) | payer MEDICAID ==
[2023-08-14] MEDS ORDERED: SODIUM CHLORIDE 0.9% 1,000 ML IV STA ×2 (00:39→01:51)
[2023-08-14] MEDS ORDERED: KETOROLAC 15 MG/ML VIAL IVP STA (00:39)
--- NOTE | 2023-08-14 00:40 | ED Physician Documentation ---
PD HPI SYNCOPE - Stated complaint Stated Complaint: SYNCOPE, HEAD LAC, ETOH - Chief complaint Chief Complaint: Laceration - History obtained from History obtained from: Patient, EMS - History of Present Illness Witnessed: Unwitnessed Timing - onset: How many hours ago (1-2) Duration: Unknown (She apparently was by herself at home and got up to go to the bathroom during the night felt lightheaded and felt herself starting to pass out. Currently struck her head on the sink. Awoke on the floor after unknown duration with blood on the floor coming from her forehead. Called EMS.) Preceding symptoms: Headache (some headache during the evening, not abrupt nor severe.), Light headed, Generalized weakness. No: Chest pain, Abdominal pain, Nausea / vomiting Associated symptoms: Headache. No: Chest pain, Nausea / vomiting, Abdominal pain Contributing factors: Decreased PO intake (possibly - was celebrating birthday during the day with some drinks gradually through day with friends. Did not have much to eat/other fluids.), Just stood up. No: Recent med change Injury occurred: Fell, Head injury. 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 denies: Focal weakness, Numbness, Confused, Altered mental status PD PAST MEDICAL HISTORY - Past Medical History Cardiovascular: Hypertension Respiratory: Shortness of breath, Other Neuro: Other (denies seizures) Endocrine/Autoimmune: None GI: GERD STEWARD/STEWARDESS ROOM: None : Incontinence, Renal insuffiency, Frequency HEENT: None Psych: Depression, Anxiety, Panic attacks, Post traumatic stress disorder, Claustrophobia Musculoskeletal: Osteoarthritis, Chronic back pain, Other Derm: Other - Past Surgical History Past Surgical History: Yes Ortho: Other /STEWARD/STEWARDESS ROOM: section Neuro: Other - Present Medications Home Medications: Ambulatory Orders Medication Instructions Recorded Confirmed Escitalopram Oxalate 20 mg PO DAILY 05/26/22 03/23/23 Lisinopril/Hydrochlorothiazide 2 tab PO DAILY 05/26/22 03/23/23 [Zestoretic 20-12.5 mg Tablet] Pantoprazole Sodium 20 mg PO DAILY PRN 05/26/22 03/23/23 tiZANidine [Zanaflex] 4 mg PO BID PRN 05/26/22 03/23/23 Cyclobenzaprine [Flexeril] 10 mg PO TID PRN 05/31/22 03/23/23 Acetaminophen [Acetaminophen Extra 1,000 mg PO Q8H PRN #60 tablet 06/10/22 03/23/23 Strength] Gabapentin [Neurontin] 600 mg PO BID 03/23/23 03/23/23 Guanfacine HCl [Intuniv] 1 mg PO DAILY 03/23/23 03/23/23 Levothyroxine [Synthroid] 112 mcg PO QDAC 03/23/23 03/23/23 Multivitamin 1 each PO DAILY 03/23/23 03/23/23 [place]-3S/Dha/Epa/Fish Oil [Fish 1 each PO DAILY 03/23/23 03/23/23 Oil 1,200 mg Softgel] Solifenacin Succinate 5 mg PO DAILY 03/23/23 03/23/23 Vitamin B Complex [B-Complex] 1 each PO DAILY 03/23/23 03/23/23 - Allergies Allergies/Adverse Reactions: Allergies Allergy/AdvReac Type Severity Reaction Status Date / Time nortriptyline Allergy Unknown Verified 08/14/23 00:39 duloxetine [From Cymbalta] AdvReac Severe Unknown Verified 08/14/23 00:39 sertraline [From Zoloft] AdvReac Severe Unknown Verified 08/14/23 00:39 venlafaxine AdvReac Severe Unknown Verified 08/14/23 00:39 fluoxetine [From Prozac] AdvReac Intermediate Unknown Verified 08/14/23 00:39 - Social History Does the pt smoke?: Yes Smoking Status: Former smoker Does the pt drink ETOH?: Yes Does the pt have substance abuse?: Yes - Immunizations Immunizations are current?: Yes - POLST Patient has POLST: No PD ED PE NORMAL - Vitals Vital signs reviewed: Yes (BP low at 92/62) - General General: Alert and oriented X 3, No acute distress, Well developed/nourished - HEENT HEENT: PERRL, EOMI, Other (forehead laceration 1.5 cm to fatty tissue, without FB but mild bleeding. ) - Neck Neck: Supple, no meningeal sign, No bony TTP - Cardiac Cardiac: RRR, No murmur - Respiratory Respiratory: Clear bilaterally - Abdomen Abdomen: Soft, Non tender - Derm Derm: Warm and dry. No: Normal color (mild pallor. ) - Extremities Extremities: Normal ROM s pain, No edema, No calf tenderness / cord - Neuro Neuro: Alert and oriented X 3, No motor deficit, No sensory deficit, Normal speech Eye Opening: Spontaneous Motor: Obeys Commands Verbal: Oriented GCS Score: 15 Results - Vitals Vitals: Oxygen O2 Source Room air - EKG (time done) 00:32 EKG releavant findings:: EKG personally interpreted by author of this note. Relevant findings are: Rate: Rate (enter#) (65) Rhythm: NSR [employer]: Normal Intervals: Normal NC, Prolonged QT (540) QRS: Normal Ischemia: Normal ST segments. No: ST elevation c/w ischemia, ST depression 04:48 EKG releavant findings:: EKG personally interpreted by author of this note. Relevant findings are: Rate: Rate (enter#) (68) Rhythm: NSR [employer]: Normal Intervals: Normal NC. No: Prolonged QT (now 487) QRS: Normal Ischemia: Normal ST segments. No: ST elevation c/w ischemia, ST depression Compare to prior EKG: Changed from prior EKG (QT has normalized with fluids/lytes) - Labs Labs: Laboratory Tests 08/14/23 08/14/23 08/14/23 00:42 00:42 00:42 WBC 7.7 RBC 3.99 L Hgb 12.1 Hct 38.1 MCV 95.5 MCH 30.3 MCHC 31.8 L RDW 12.9 Plt Count 190 MPV 12.6 H Neut # (Auto) 4.3 Lymph # (Auto) 2.4 [place] # (Auto) 0.7 Eos # (Auto) 0.2 Baso # (Auto) 0.1 Absolute Nucleated RBC 0.00 Nucleated RBC % 0.0 Sodium 142 Potassium 3.4 L Chloride 107 Carbon Dioxide 24 Anion Gap 11.0 BUN 10 Creatinine 1.3 Estimated GFR (MDRD) 43 L Glucose 97 Calcium 8.4 L Magnesium 1.6 L Total Bilirubin 0.2 AST 16 ALT 14 Alkaline Phosphatase 58 Troponin I High Sens 3.5 Total Protein 5.7 L Albumin 4.1 Globulin 1.6 L Albumin/Globulin Ratio 2.6 H Lipase 28 Ethyl Alcohol 39.5 - Rads (name of study) head CT Relevant Findings:: Prelim report reviewed, EMP independent interpretation of test (no acute injury) Procedures - Laceration (location) forehead Length in cm: 1.5 Wound type: Linear, Into subcut fat Wound preparation: Wound explored, To the base, Other (cleansed with tap water) Skin layer closure: Dermabond, Steri strips Other: Patient tolerated well, Dressing applied PD Medical Decision Making - ED course Complexity details: reviewed results, considered differential (Posture lightheaded Dominick syncope with apparently decreased fluid intake through the day. Had had some alcohol drinks through the day. Some food. No recent illness. No throwing up and or diarrhea. BP is somewhat low.), d/w patient Reviewed Lab Results: She is given IV fluids. We did do blood tests including CBC and chemistry panel. She is not anemic. White count is slightly elevated. Chemistry panel shows a normal blood sugar. Potassium is low as is magnesium though not ser iously low. However this may reflect some element of volume loss or under hydration. Coupled with the EKG showing some QT prolongation, I am inclined to give some IV fluids as well as some potassium and magnesium supplement IV and orally. We will then recheck the EKG. We will reassess the blood pressure after some IV fluids. She will be given an oral fluid challenge. ED course: The patient did have dry mouth and stated she felt thirsty. She does have a lower blood pressure. Presumption is under hydration. Basic blood tests of the white count is normal. She is not anemic by blood count. Electrolytes showed a slightly low potassium and also a low magnesium of 1.6. These were not significantly low but given her syncopal episode and initial EKG showing a QT mild prolongation, I did feel appropriate to replace with fluids as well as magnesium and potassium supplements. She was feeling improved and on standing up did not feel lightheaded. Her blood pressure is still marginally low but she is symptomatically feeling much better. A repeat EKG showed a normalized QT interval. Presume related to under hydration. Prlonged ED stay for head CT, IV fluids, Electrolyte replacement, heart monitoring, and repeat ECG. At this point I do not see a significant cause for her syncope aside from likely postural hypotension and under hydration with some electrolyte abnormalities. I feel she is stable and safe for discharge. She is not having any concussive symptoms and we did do a CT of the head which did not show any acute bleeding or abnormalities. The forehead laceration was Steri-Stripped. Departure - Departure Disposition: 01 Home, Self Care Clinical Impression: Forehead laceration, Syncope, Transient hypotension, Hypokalemia, Hypomagnesemia, Mild concussion, Prolonged Q-T interval on ECG Condition: Stable Record reviewed to determine appropriate education?: Yes Instructions: ED Dehydration, ED Laceration Facial Skin Glue Comments: You likely have some degree of headache from injuring your forehead and head. There may be some level of lightheadedness and feeling off for a couple of days related to mild concussion (you were knocked out briefly and not feeling quite right). Keep the Steri-Strips and glue on your forehead clean and dry and allow them to fall off on their own after several days or more. At that point routine wound care with cleaning and ointment. Recheck if signs of infection. Tylenol ibuprofen if needed for pains. Your basic blood test showed a normal blood count and white count, blood sugar, kidney function and liver enzymes. Your electrolytes did show abnormalities of a mildly low potassium and magnesium. This may have helped contribute to poor blood pressure responsiveness to volume depletion. Consider foods with higher potassium and magnesium over the next week or oral supplements in the short- term. At this point I would presume you are under hydrated and that contributed to the lightheadedness and fainting when you stood up. Your blood pressure was a bit low here in the ER but has improved with some fluids. Does seem like you are feeling better with standing up and walking. Allow slow and easy over the next couple of days and return to normal activity as tolerated. Stay well-hydrated. Forms: PCP List Discharge Date/Time: 08/14/23 06:04
[2023-08-14 01:16] LABS: ALBUMIN 4.1 g/dL (3.2-5.5); ALBUMIN/GLOBULIN RATIO 2.6 (1.0-2.2); BILIRUBIN,TOTAL 0.2 mg/dL (0.2-1.0); CALCIUM 8.4 mg/dL (8.5-10.3); CREATININE 1.3 mg/dL (0.6-1.3); ETOH - ETHANOL 39.5 mg/dL; MAGNESIUM 1.6 mg/dL (1.7-2.3); POTASSIUM 3.4 mmol/L (3.5-4.5); TOTAL PROTEIN 5.7 g/dL (6.4-8.9)
[2023-08-14 01:35] LABS: BASOPHILS # (AUTO) 0.1 10^3/uL (0.0-0.1); BASOPHILS % (AUTO) 0.6 %; EOSINOPHILS # (AUTO) 0.2 10^3/uL (0.0-0.7); HCT - HEMATOCRIT 38.1 % (37.0-47.0); HGB - HEMOGLOBIN 12.1 g/dL (12.0-16.0); LYMPHOCYTES # (AUTO) 2.4 10^3/uL (1.5-3.5); MEAN CORPUSCULAR HEMOGLOBIN 30.3 pg (27.0-31.0); MEAN CORPUSCULAR HGB CONC 31.8 g/dL (32.0-36.0); MEAN CORPUSCULAR VOLUME 95.5 fL (81.0-99.0); MEAN PLATELET VOLUME 12.6 fL (7.9-10.8); MONOCYTES # (AUTO) 0.7 10^3/uL (0.0-1.0); MONOCYTES % (AUTO) 9.3 %; NEUTROPHILS # (AUTO) 4.3 10^3/uL (1.5-6.6); NEUTROPHILS % (AUTO) 55.8 %; PLT - PLATELET COUNT 190 10^3/uL (130-450); RED BLOOD COUNT 3.99 10^6/uL (4.20-5.40); RED CELL DISTRIBUTION WIDTH 12.9 % (12.0-15.0); WHITE BLOOD COUNT 7.7 x10^3/uL (4.8-10.8)
--- NOTE | 2023-08-14 01:40 | CT Report ---
PROCEDURE: HEAD WO INDICATIONS: syncope, struck head, headache TECHNIQUE: Noncontrast 4.5 mm thick angled axial sections acquired from the foramen magnum to the vertex. For r adiation dose reduction, the following was used: automated exposure control, adjustment of mA and/or kV according to patient size. COMPARISON: None. FINDINGS: Image quality: Excellent. CSF spaces: Basal cisterns are patent. No extra-axial fluid collections. Ventricles are normal in size and shape. Brain: No midline shift. No intracranial masses or hemorrhage. Hercules-white matter interface is norm al. Skull and face: Calvarium and visualized facial bones are intact, without suspicious lesions. Sinuses: Visualized sinuses and mastoids are clear. IMPRESSION: No acute intracranial pathology. Reviewed by: Lex Ramos on 08/14/2023 1:39 AM [facility] Approved by: Lex Ramos on 08/14/2023 1:39 AM [facility] Station ID: [id number]
[2023-08-14] MEDS ORDERED: MAGNESIUM SULFATE 2 GRAM 2 GM/50 ML BAG IV ONE (01:50)
[2023-08-14] MEDS ORDERED: POTASSIUM BICARB 25 MEQ TABLET PO STA (01:50)
[2023-08-14] MEDS ORDERED: POTASSIUM CHLOR 10 MEQ/100 ML 10 MEQ/100 ML BAG IV ONE (01:50)
[2023-08-14 06:08] VITALS: BP 114/74; O2SAT 98
== END 2023-08-14 06:04 | disposition home or self-care (01) ==
LOC: EDUNIT# → ED 00:24
DX: I95.89 Other hypotension (principal); S01.81XA Laceration without foreign body of other part of head, initial encounter; S06.0X9A Concussion with loss of consciousness of unspecified duration, initial encounter; R40.2412 Glasgow coma scale score 13-15, at arrival to emergency department; W18.39XA Other fall on same level, initial encounter; W22.09XA Striking against other stationary object, initial encounter; Y93.89 Activity, other specified; Y92.002 Bathroom of unspecified non-institutional (private) residence as the place of occurrence of the external cause; E87.6 Hypokalemia; E83.42 Hypomagnesemia; R94.31 Abnormal electrocardiogram [ECG] [EKG]; Z87.891 Personal history of nicotine dependence
CPT/HCPCS: 12011; 36415; 70450; 80053; 80320; 83690; 83735; 84484; 85025; 93005; 96361; 96365; 96368; 96375; 99284; A9270

== ENCOUNTER 2023-11-23 02:21 | Outpatient (CLI) | payer MEDICAID | END 2023-11-23 23:59 | disposition critical access hospital (66) | LOC: EMS 02:21 | DX: R25.2 Cramp and spasm (principal); R53.83 Other fatigue; I95.9 Hypotension, unspecified | CPT/HCPCS: A0425; A0427; A0999 ==

== ENCOUNTER 2023-11-23 02:43 | Emergency (ER) | payer MEDICAID ==
--- NOTE | 2023-11-23 02:58 | ED Physician Documentation ---
History of Present Illness - Stated complaint Stated Complaint: BACK SPASMS, LETHARGIC - History obtained from History obtained from: Patient, EMS - Additonal information Additional information: 48yF with pmh cervical spine surgery with chronic nerve damage and chronic neck pain p/w complaint of neck pain and BL arm spasm tonight, prompting her to call 911. on ems arrival she was found to be behaving bizarrely and her blood pressure was 59/P, improving en route with 1L IVF. fingerstick 123. patient is AOX4 on arrival but behaving in erratic manner. she states she took several of her medications but is unable to give specific information about which ones aside from lyrica and trazodone. she states she had two servings of alcoholic cider tonight. when asked if she used illicit drugs she said no while nodding her head. patient appears confused and intoxicated despite answering orientation questions correctly. 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 : Incontinence, Renal insuffiency, Frequency HEENT: None Psych: Depression, Anxiety, Panic attacks, Post traumatic stress disorder, Claustrophobia Musculoskeletal: Osteoarthritis, Chronic back pain, Other Derm: Other - Past Surgical History Past Surgical History: Yes Ortho: Other /ICE RINK ATTENDANT: section Neuro: Other - Present Medications Home Medications: Ambulatory Orders Medication Instructions Recorded Confirmed Escitalopram Oxalate 20 mg PO DAILY 05/26/22 03/23/23 Lisinopril/Hydrochlorothiazide 2 tab PO DAILY 05/26/22 03/23/23 [Zestoretic 20-12.5 mg Tablet] Pantoprazole Sodium 20 mg PO DAILY PRN 05/26/22 03/23/23 tiZANidine [Zanaflex] 4 mg PO BID PRN 05/26/22 03/23/23 Cyclobenzaprine [Flexeril] 10 mg PO TID PRN 05/31/22 03/23/23 Acetaminophen [Acetaminophen Extra 1,000 mg PO Q8H PRN #60 tablet 06/10/22 03/23/23 Strength] Gabapentin [Neurontin] 600 mg PO BID 03/23/23 03/23/23 Guanfacine HCl [Intuniv] 1 mg PO DAILY 03/23/23 03/23/23 Levothyroxine [Synthroid] 112 mcg PO QDAC 03/23/23 03/23/23 Multivitamin 1 each PO DAILY 03/23/23 03/23/23 [place]-3S/Dha/Epa/Fish Oil [Fish 1 each PO DAILY 03/23/23 03/23/23 Oil 1,200 mg Softgel] Solifenacin Succinate 5 mg PO DAILY 03/23/23 03/23/23 Vitamin B Complex [B-Complex] 1 each PO DAILY 03/23/23 03/23/23 - Allergies Allergies/Adverse Reactions: Allergies Allergy/AdvReac Type Severity Reaction Status Date / Time nortriptyline Allergy Unknown Verified 11/23/23 03:01 duloxetine [From Cymbalta] AdvReac Severe Unknown Verified 11/23/23 03:01 sertraline [From Zoloft] AdvReac Severe Unknown Verified 11/23/23 03:01 venlafaxine AdvReac Severe Unknown Verified 11/23/23 03:01 fluoxetine [From Prozac] AdvReac Intermediate Unknown Verified 11/23/23 03:01 - Social History Does the pt smoke?: Yes Smoking Status: Former smoker Does the pt drink ETOH?: Yes Does the pt have substance abuse?: Yes - Immunizations Immunizations are current?: Yes - POLST Patient has POLST: No PD ED PE NORMAL - Vitals Vital signs reviewed: Yes - General General: Alert and oriented X 3, No acute distress, Well developed/nourished - HEENT HEENT: Atraumatic, PERRL, EOMI, Moist mucous membranes, Pharynx benign, Other (pinpoint pupils) - Neck Neck: Supple, no meningeal sign - Cardiac Cardiac: RRR - Respiratory Respiratory: No respiratory distress, Clear bilaterally - Abdomen Abdomen: Non tender, Non distended - Derm Derm: Normal color, Warm and dry - Neuro Neuro: Alert and oriented X 3, Other (slurred speech. eyes rapidly moving about the room.) Eye Opening: Spontaneous Motor: Obeys Commands Verbal: Confused GCS Score: 14 - Psych Psych: Other (intoxicated appearing) Results - Vitals Vitals: Vital Signs - 24 hr 11/23/23 11/23/23 02:53 02:58 Temperature 36.8 C 36.8 C Heart Rate 70 70 Respiratory 20 20 Rate Blood Pressure 118/107 H 118/107 H O2 Saturation 97 97 Oxygen O2 Source Room air - Labs Labs: Laboratory Tests 11/23/23 11/23/23 03:13 03:13 WBC 6.8 RBC 3.73 L Hgb 11.8 L Hct 36.0 L MCV 96.5 MCH 31.6 H MCHC 32.8 RDW 13.1 Plt Count 183 MPV 12.3 H Neut # (Auto) 3.8 Lymph # (Auto) 2.1 [place] # (Auto) 0.6 Eos # (Auto) 0.3 Baso # (Auto) 0.1 Absolute Nucleated RBC 0.00 Nucleated RBC % 0.0 Sodium 142 Potassium 3.9 Chloride 108 Carbon Dioxide 24 Anion Gap 10.0 BUN 18 Creatinine 2.2 H Estimated GFR (MDRD) 24 L Glucose 100 Calcium 8.3 L Magnesium 1.6 L Total Bilirubin 0.3 AST 13 ALT 11 Alkaline Phosphatase 52 Total Creatine Kinase 38 Total Protein 5.6 L Albumin 3.7 Globulin 1.9 L Albumin/Globulin Ratio 1.9 Lipase 41 TSH 8.16 H Salicylates < 1.5 Acetaminophen 0.1 Ethyl Alcohol 101.6 PD Medical Decision Making - ED course ED course: 48yF presents with acute intoxication likely 2/2 polypharmacy. A review of her medications shows many sedating meds, several of which she admits taking tonight in addition to alcohol. (Flexeril, clonidine, xanax, trazodone, lyrica.) Patient also takes ritalin, lithium, labetalol, lisinopril. She was hypotensive on scene per ems but bp is now improved to 118/107. Plan to obtain screening labs including drug screens and allow her to metabolize off the polypharmacy. Will maintain on cardiac cath technologist. patient threw up at 5am. IV zofran and pepcid administered with improvement. She was found to have mild rodriguez and anemia. plan to f/u outpatient pcp regarding these findings once she is clinically sober. patient endorsed to incoming daytime ED MD at 7am shift change. Departure - Departure Clinical Impression: Polypharmacy, Alcohol use, Intoxication by drug, RODRIGUEZ (acute kidney injury), Anemia, Hypomagnesemia Condition: Stable Comments: You were seen in the emergency department for intoxication with alcohol and multiple of your home medications. You should not drink alcohol when taking lyrica, trazodone, xanax, flexeril, clonidine, or other sedating medications. Your kidneys are showing damage compared to the last time you had blood work here (creatinine 2.2 today compared with creatinine 1.3 on August 14, 2023). You also have some mild anemia with a hemoglobin of 11.8. You should stop taking lisinopril until further advised by a medical professional, since this can make your kidneys worse. Please follow-up with your primary care provider and return to the emergency department if you have any new or worsening symptoms or other concerns.
[2023-11-23 03:17] LABS: BASOPHILS # (AUTO) 0.1 10^3/uL (0.0-0.1); BASOPHILS % (AUTO) 0.9 %; EOSINOPHILS # (AUTO) 0.3 10^3/uL (0.0-0.7); EOSINOPHILS % (AUTO) 4.5 %; HGB - HEMOGLOBIN 11.8 g/dL (12.0-16.0); LYMPHOCYTES # (AUTO) 2.1 10^3/uL (1.5-3.5); LYMPHOCYTES % (AUTO) 30.7 %; MEAN CORPUSCULAR HEMOGLOBIN 31.6 pg (27.0-31.0); MEAN CORPUSCULAR HGB CONC 32.8 g/dL (32.0-36.0); MEAN CORPUSCULAR VOLUME 96.5 fL (81.0-99.0); MEAN PLATELET VOLUME 12.3 fL (7.9-10.8); MONOCYTES # (AUTO) 0.6 10^3/uL (0.0-1.0); MONOCYTES % (AUTO) 8.8 %; NEUTROPHILS # (AUTO) 3.8 10^3/uL (1.5-6.6); NEUTROPHILS % (AUTO) 54.8 %; PLT - PLATELET COUNT 183 10^3/uL (130-450); RED BLOOD COUNT 3.73 10^6/uL (4.20-5.40); RED CELL DISTRIBUTION WIDTH 13.1 % (12.0-15.0); WHITE BLOOD COUNT 6.8 x10^3/uL (4.8-10.8)
[2023-11-23 03:30] LABS: ACETAMINOPHEN 0.1 ug/mL; ALBUMIN 3.7 g/dL (3.2-5.5); ALBUMIN/GLOBULIN RATIO 1.9 (1.0-2.2); ALKALINE PHOSPHATASE 52 IU/L (42-121); ALT ALANINE AMINOTRANSFERASE 11 IU/L (10-60); AST ASPARTATE AMINOTRANSFERASE 13 IU/L (10-42); BILIRUBIN,TOTAL 0.3 mg/dL (0.2-1.0); BUN - BLOOD UREA NITROGEN 18 mg/dL (6-20); CALCIUM 8.3 mg/dL (8.5-10.3); CARBON DIOXIDE - CO2 24 mmol/L (21-32); CHLORIDE 108 mmol/L (101-111); CK- CREATINE KINASE 38 IU/L (30-223); CREATININE 2.2 mg/dL (0.6-1.3); ETOH - ETHANOL 101.6 mg/dL; GFR - MDRD 24 (>89); GLUCOSE 100 mg/dL (74-104); LIPASE 41 U/L (11-82); MAGNESIUM 1.6 mg/dL (1.7-2.3); POTASSIUM 3.9 mmol/L (3.5-4.5); SODIUM 142 mmol/L (135-145); TOTAL PROTEIN 5.6 g/dL (6.4-8.9)
[2023-11-23 03:31] LABS: SALICYLATE < 1.5 mg/dL
[2023-11-23 03:46] LABS: THYROID STIMULATING HORMONE 8.16 uIU/mL (0.34-5.60)
[2023-11-23] MEDS ORDERED: THIAMINE 100 MG/1 ML 2 ML MDV ONE (03:56)
[2023-11-23] MEDS: MAGNESIUM SULFATE 2 GRAM 2 GM/50 ML BAG IV ONE (03:58)
[2023-11-23] MEDS: THIAMINE INJ 100 MG in SODIUM CHLORIDE 0.9% 50 ML IV STA (03:58)
[2023-11-23] MEDS: SODIUM CHLORIDE 0.9% 1,000 ML IV STA ×2 (03:59→04:22)
[2023-11-23] MEDS: ONDANSETRON 4 MG/2 ML VIAL IVP STA (06:03)
[2023-11-23] MEDS: FAMOTIDINE 20 MG/2 ML VIAL IVP STA (06:03)
[2023-11-23 07:10] VITALS: BP 83/59; O2SAT 95
== END 2023-11-23 07:33 | disposition home or self-care (01) ==
LOC: EDUNIT# → ED 02:43
DX: T50.905A Adverse effect of unspecified drugs, medicaments and biological substances, initial encounter (principal); N17.9 Acute kidney failure, unspecified; D64.9 Anemia, unspecified; E83.42 Hypomagnesemia; I10 Essential (primary) hypertension; F10.90 Alcohol use, unspecified, uncomplicated; Y90.5 Blood alcohol level of 100-119 mg/100 ml; Z87.891 Personal history of nicotine dependence
CPT/HCPCS: 36415; 80053; 80143; 80179; 82077; 82550; 83690; 83735; 84443; 85025; 96374; 96375; 99284; 99285; J3411; J7040

== ENCOUNTER 2023-12-06 11:10 | Outpatient (CLI) | payer MEDICAID ==
[2023-12-06 15:05] LABS: BASOPHILS # (AUTO) 0.1 10^3/uL (0.0-0.1); BASOPHILS % (AUTO) 0.7 %; EOSINOPHILS # (AUTO) 0.2 10^3/uL (0.0-0.7); EOSINOPHILS % (AUTO) 2.7 %; HCT - HEMATOCRIT 39.6 % (37.0-47.0); LYMPHOCYTES # (AUTO) 1.7 10^3/uL (1.5-3.5); LYMPHOCYTES % (AUTO) 24.5 %; MEAN CORPUSCULAR HEMOGLOBIN 30.7 pg (27.0-31.0); MEAN CORPUSCULAR HGB CONC 32.8 g/dL (32.0-36.0); MEAN CORPUSCULAR VOLUME 93.4 fL (81.0-99.0); MEAN PLATELET VOLUME 12.7 fL (7.9-10.8); MONOCYTES # (AUTO) 0.4 10^3/uL (0.0-1.0); MONOCYTES % (AUTO) 5.9 %; NEUTROPHILS # (AUTO) 4.4 10^3/uL (1.5-6.6); NEUTROPHILS % (AUTO) 65.9 %; PLT - PLATELET COUNT 190 10^3/uL (130-450); RED BLOOD COUNT 4.24 10^6/uL (4.20-5.40); RED CELL DISTRIBUTION WIDTH 12.5 % (12.0-15.0); WHITE BLOOD COUNT 6.7 x10^3/uL (4.8-10.8)
[2023-12-06 15:50] LABS: ALBUMIN 4.2 g/dL (3.2-5.5); ALBUMIN/GLOBULIN RATIO 1.8 (1.0-2.2); BILIRUBIN,TOTAL 0.5 mg/dL (0.2-1.0); CALCIUM 9.6 mg/dL (8.5-10.3); CREATININE 0.9 mg/dL (0.6-1.3); MAGNESIUM 1.8 mg/dL (1.7-2.3); POTASSIUM 3.7 mmol/L (3.5-4.5); TOTAL PROTEIN 6.5 g/dL (6.4-8.9)
== END 2023-12-06 11:11 | disposition home or self-care (01) ==
LOC: LAB.S 11:10
PROVIDERS: ATTEND Physician Assistant Medical
DX: N17.9 Acute kidney failure, unspecified (principal); E83.42 Hypomagnesemia
CPT/HCPCS: 36415; 80053; 83735; 85025

== ENCOUNTER 2023-12-21 14:35 | Outpatient (CLI) | payer MEDICAID ==
[2023-12-21 19:55] LABS: BASOPHILS # (AUTO) 0.1 10^3/uL (0.0-0.1); BASOPHILS % (AUTO) 0.7 %; EOSINOPHILS # (AUTO) 0.4 10^3/uL (0.0-0.7); HCT - HEMATOCRIT 41.4 % (37.0-47.0); HGB - HEMOGLOBIN 13.1 g/dL (12.0-16.0); LYMPHOCYTES % (AUTO) 29.4 %; MEAN CORPUSCULAR HEMOGLOBIN 30.3 pg (27.0-31.0); MEAN CORPUSCULAR HGB CONC 31.6 g/dL (32.0-36.0); MEAN CORPUSCULAR VOLUME 95.8 fL (81.0-99.0); MEAN PLATELET VOLUME 12.7 fL (7.9-10.8); MONOCYTES # (AUTO) 0.5 10^3/uL (0.0-1.0); MONOCYTES % (AUTO) 7.3 %; NEUTROPHILS # (AUTO) 3.8 10^3/uL (1.5-6.6); NEUTROPHILS % (AUTO) 56.3 %; PLT - PLATELET COUNT 145 10^3/uL (130-450); RED BLOOD COUNT 4.32 10^6/uL (4.20-5.40); RED CELL DISTRIBUTION WIDTH 13.3 % (12.0-15.0); WHITE BLOOD COUNT 6.7 x10^3/uL (4.8-10.8)
[2023-12-21 20:07] LABS: ALBUMIN 4.2 g/dL (3.2-5.5); BILIRUBIN,TOTAL 0.5 mg/dL (0.2-1.0); CALCIUM 9.2 mg/dL (8.5-10.3); CREATININE 0.8 mg/dL (0.6-1.3); POTASSIUM 3.6 mmol/L (3.5-4.5); TOTAL PROTEIN 6.3 g/dL (6.4-8.9)
[2023-12-21 20:21] LABS: THYROID STIMULATING HORMONE 0.07 uIU/mL (0.34-5.60)
== END 2023-12-21 14:36 | disposition home or self-care (01) ==
LOC: LAB.S 14:35
PROVIDERS: ATTEND Physician Assistant Medical
DX: E03.9 Hypothyroidism, unspecified (principal); N17.9 Acute kidney failure, unspecified
CPT/HCPCS: 36415; 80053; 84439; 84443; 85025

== ENCOUNTER 2023-12-27 10:51 | Outpatient (CLI) | payer MEDICAID ==
--- NOTE | 2023-12-28 09:56 | Ultrasound Report ---
LIMITED ULTRASOUND OF RIGHT BREAST AND AXILLA: 12/27/2023 CLINICAL: Bloody nipple discharge right breast. Comparison is made to exams dated: 12/27/2023 mammogram, 08/03/2022 mammogram, and 08/05/2014 mammogram - [facility]. Color flow and real-time ultrasound of the right breast retroareolar and axilla regions were performe d. Hercules scale images of the real-time examination were reviewed. Right axillary node measuring 1 cm short axis diameter. Suspect punctate calcifications. No right retroareolar mass or dilated ducts. IMPRESSION: BENIGN Prominent right axillary node with suspect punctate calcifications. The calcification is felt to be r elated to the patient's tattoo and is typically benign. No right retroareolar mass or dilated ducts. Patient describes scant right breast bloody nipple disch arge. Thickening adjacent to the nipple is reported as decreased. Patient also has milky and yellowis h nipple discharge which is typically benign. Exam findings were discussed with the patient. Patient is advised to monitor for significant change. If symptoms persist or worsen, breast MRI is recommended. A 1 year screening mammogram is recommended. This exam was interpreted at Station ID: [id number]. Electronically Signed By: Jorge Alberto Rodriguez M.D. slc/:12/27/2023 12:22:03 Ultrasound BI-RADS: 2 Benign BI-RADS CATEGORY: (2) - 2 RECOMMENDATION: (ANNUAL) - Recommend routine annual screening mammography. [id number] 1 year screening LATERALITY: (B)
--- NOTE | 2023-12-28 09:56 | Mammography Report ---
BILATERAL DIGITAL DIAGNOSTIC MAMMOGRAM 3D/2D WITH MAGNIFICATION: 12/27/2023 CLINICAL: Bloody nipple discharge right breast. Due for bilateral exam. Comparison is made to exams dated: 08/03/2022 mammogram and 08/05/2014 mammogram - [facility]. There are scattered areas of fibroglandular density in both breasts (category b / 25%-50% glandular t issue). There is a lymph node with heterogeneous calcifications in the right breast posterior depth superior region seen on the mediolateral oblique view only. No right retroareolar mass is seen. No other significant masses, calcifications, or other findings are seen in either breast. IMPRESSION: INCOMPLETE: NEEDS ADDITIONAL IMAGING EVALUATION The lymph node in the right axilla with calcifications is indeterminate. No right retroareolar mass is seen. A targeted ultrasound is recommended and will immediately follow. Based on the Tyrer Cuzick model (a risk assessment model) the patient's lifetime risk is 9.0% and her 10 year risk is 2.1%. According to the ACR, ACS, and NCCN guidelines, an annual breast MRI exam fanny g with mammogram is recommended if the patient's lifetime risk is 20% or greater. This exam was interpreted at Station ID: [id number]. NOTE: For mammograms, a report in lay terms will be sent to the patient. Approximately 15% of breast malignancies will not be visualized mammographically. In the management of a palpable breast mass, a negative mammogram must not discourage biopsy of a clinically suspicious lesion. Electronically Signed By: Jorge Alberto Rodriguez M.D. slc/:12/27/2023 11:46:37 ACR BI-RADS Category 0: Incomplete 3340F PARENCHYMAL PATTERN: (A) - The breast(s) demonstrate(s) scattered fibroglandular densities. BI-RADS CATEGORY: (0) - 0 Ultrasound [id number] Immediate follow-up LATERALITY: (B)
== END 2023-12-27 10:52 | disposition home or self-care (01) ==
LOC: DI 10:51
PROVIDERS: ATTEND Physician Assistant Medical
DX: R59.0 Localized enlarged lymph nodes (principal); N64.59 Other signs and symptoms in breast; R92.323 Mammographic fibroglandular density, bilateral breasts

== ENCOUNTER 2024-01-11 14:58 | Outpatient (CLI) | payer MEDICAID ==
--- NOTE | 2024-01-11 15:49 | Sleep Patient Instructions ---
Sleep Center Visit Summary - Patient Visit Information Reason for Visit: Initial consult for evaluation of sleep disordered breathing and other sleep issues. - Patient Instructions Instructions Attached: Sleep Study Home Monitor, Sleep Study Additional Instructions: You will be completing a sleep study, either an in-lab polysomnography (PSG) or home sleep study (HST). You will follow-up in the sleep care office after the sleep study is completed to hear the results and talk about therapy, if needed. You will be called by our office staff to schedule this appointment, but you may contact us with any questions. - Clinic Information Contact: [facility] [address] [place] [id number] [email or web address] T: [phone]
--- NOTE | 2024-01-11 15:54 | SLEEP CARE CONSULTATION ---
Information from patient questionnaire entered by Delma Rutherford. I have reviewed and concur with the information entered by Delma Rutherford. This document represents the service I personally performed and the decisions made by me, Peace Glover ARNP. History of Present Illness Service Date and Time: 01/11/2024 1458 Reason for Visit: New patient Chief Complaint: reports: Unrefreshed sleep, Excessive daytime sleepiness, Fatigue, Frequent awakenings at night Date of Onset: 3YRS Usual bedtime: [id number] Time it takes to fall asleep: 30MINS Snores at night: Yes Sleeps alone due to snoring: No Number of times waking at night: 4-5 Reasons for waking at night: reports: Pain, Bathroom, Other (UNKNOWN). denies: Choking, Gasping for air Toss, Turn, or Twitch while sleeping: Yes Recalls having dreams: No (had a night mare last night) Usually gets out of bed at: 0900 Feels refreshed in the morning: No Morning headache: Yes (daily; it does not go away; hurts at base of head, comes around to forehead) Sleepy or fatigued during the day: Yes Ever fallen asleep while driving: No Takes day naps: No Prior sleep studies: No Additional HPI information: I had the pleasure of seeing JOYA PITT today regarding the possibility of her having a sleep disorder. Her current complaints are daytime sleepiness, fatigue, frequent night awakenings and unrefreshed sleep. She says she does not feel like she sleeps well but feels this is due to pain. She takes a sleeping pill and a muscle relaxer to be able to get to sleep at night since she had ACDF surgery. She has a hard time getting comfortable without her neck and shoulders feeling tense. She will usually fall asleep in about 30 minutes. She says she wakes up 4-5 times a night and can go back to sleep. She gets up for the day about 9 AM. She normally does not feel rested in the mornings. - Parasomnia Symptoms Ever been unable to move upon waking from sleep: No Walks in sleep: No Talks in sleep: Yes (years ago did but no one recently) Ever acted out dreams in sleep: Yes (crying according ex) Ever felt weak in the knees when startled or emotional: No Bothered by creepy, crawly, restless sensations in legs: Yes (sometimes) Problems with memory or concentration: Yes (both) Subjective Initial [place] Sleepiness Scale score: 11 (01/11/24) Past Medical History Past Medical History: reports: Hypertension, Claustrophobia, Arthritis, Hypothyroidism, Anxiety, Depression, Attention deficit, Other (urination problems; partial hysterectomy; anterior cervical diskectomy fusion, vocal cord damaged; silent acid reflux) Social History The patient's occupation is a [employer]. Patient is Single and lives in [place]. Have you smoked in the past 12 months: No Cigarettes per day (20/pack): 20 Years of smokin Quit date: 2019 Smoking Pack Years: 17.0 Alcohol use: Yes Alcohol amount and frequency: 2-3 drinks, 2-3 Caffeine use: Yes Caffeine amount and frequency: 2 COFFEES DAILY Family History Family history of sleep disordered breathing: Yes Family Hx Sleep Apnea: Father: Snoring Allergies and Home Medications Known drug allergies: Yes (as listed) Drug allergies reviewed: Yes Home medication list reviewed: Yes (as listed, except for BP med, unsure of name because new) Allergy and home medication list: Allergies nortriptyline Allergy (Verified 01/09/24 11:03) Unknown duloxetine [From Cymbalta] Adverse Reaction (Severe, Verified 01/09/24 11:03) Unknown sertraline [From Zoloft] Adverse Reaction (Severe, Verified 01/09/24 11:03) Unknown venlafaxine Adverse Reaction (Severe, Verified 01/09/24 11:03) Unknown fluoxetine [From Prozac] Adverse Reaction (Intermediate, Verified 01/09/24 11:03) Unknown Home Medications Medication Instructions Recorded Confirmed Last Taken Type Escitalopram Oxalate 20 mg PO DAILY 05/26/22 01/11/24 03/23/23 History Pantoprazole Sodium 20 mg PO DAILY PRN 05/26/22 01/11/24 03/23/23 History tiZANidine [Zanaflex] 4 mg PO BID PRN 05/26/22 01/11/24 03/23/23 History Cyclobenzaprine [Flexeril] 10 mg PO TID PRN 05/31/22 01/11/24 03/23/23 History Acetaminophen [Acetaminophen Extra 1,000 mg PO Q8H PRN #60 tablet 06/10/22 01/11/24 03/23/23 Rx Strength] Guanfacine HCl [Intuniv] 1 mg PO DAILY 03/23/23 01/11/24 03/23/23 History Levothyroxine [Synthroid] 112 mcg PO QDAC 03/23/23 01/11/24 03/23/23 History Multivitamin 1 each PO DAILY 03/23/23 01/11/24 03/23/23 History [place]-3S/Dha/Epa/Fish Oil [Fish 1 each PO DAILY 03/23/23 01/11/24 03/23/23 History Oil 1,200 mg Softgel] Solifenacin Succinate 5 mg PO DAILY 03/23/23 01/11/24 03/23/23 History Vitamin B Complex [B-Complex] 1 each PO DAILY 03/23/23 01/11/24 03/23/23 History Lyrica See Rx Instructions .ROUTE .COMPLEX 01/11/24 01/11/24 Unknown History Review of Systems Cardiovascular: reports: high blood pressure Respiratory: reports: shortness of breath Gastrointestinal: reports: heartburn, difficulty swallowing, vomitting Urinary: reports: incontinence, frequency, urgency Neurological: reports: headaches, gait or balance problems Psychiatric: reports: Attention Deficit Hyperactivity, anxiety, depression, claustrophobia Ear/Nose/Throat: reports: dry mouth/throat, hoarseness, wisdom teeth removed Endocrine: reports: sluggishness Musculoskeletal: reports: joint pain, neck pain, back pain, muscle pain or cramping Physical Exam Vital signs obtained and entered by: DELMA Gaines MA Blood Pressure: 187/106 (RIGHT ARM) Cuff size: regular Heart Rate: 70 O2 Saturation: 98 Height: 5 ft 1 in Weight: 193 lb 3.2 oz Body Mass Index: 36.5 BMI Classification: Obese Neck circumference: 15.5 Mouth and throat: narrow oropharynx Soft palate: long Hard palate: normal Uvula: normal Uvula visualization: 100% Mallampati Class I Tongue: enlarged in size with teeth he on lateral edges Tonsils: small Neck: normal w/o lymphadenopathy or thyromegaly Heart: regular rate and rhythm Lungs: clear bilaterally Impression and Plan 1. Suspected Obstructive Sleep Apnea-Hypopnea Syndrome, as suggested by a history of loud and irregular snoring, morning headache, frequent awakening during the night, unrefreshed sleep, cognitive impairment, and excessive daytime sleepiness. Narrow oropharynx and obesity are common predisposing factors for obstructive sleep apnea-hypopnea syndrome. I recommend proceeding to polysomnography to confirm the diagnosis and to assess severity. If the patient has significant sleep disordered breathing, a manual CPAP titration study will also be performed to find the optimal treatment pressure. I informed the patient of what the sleep studies involve and after some discussion, obtained agreement to proceed. The pathophysiology of obstructive sleep apnea-hypopnea syndrome was discussed with the patient and health risks of cardiovascular and cerebrovascular disease if not treated. Risks of drowsy driving discussed in detail and patient advised to avoid long distance driving and to tap puller at the first sign of drowsiness. Patient agreed to plan. * Schedule polysomnography. * Avoid long distance driving or driving when feeling sleepy. * Avoid alcohol, sedative and muscle relaxant around bedtime. * Attempt to lose weight. * Review instructions provided by trained office staff on how to prepare for the sleep study. * Return for follow-up after sleep study completed. Counseling Topics: Weight loss health impact Plan: PSG/HST Visit Type: In Office Time Spent with Patient (minutes): 32 Provider Statement: I spent 100% of the Face to Face Visit with the patient with greater than 50% spent counseling the patient and coordination of care.
[2024-01-11 16:07] VITALS: BP 187/106; O2SAT 98
== END 2024-01-11 14:59 | disposition home or self-care (01) ==
LOC: SC 14:58
PROVIDERS: ATTEND Nurse Practitioner Family
DX: G47.10 Hypersomnia, unspecified (principal); R53.83 Other fatigue; G47.8 Other sleep disorders; R51.9 Headache, unspecified; R06.83 Snoring; F32.A Depression, unspecified; I10 Essential (primary) hypertension; E66.9 Obesity, unspecified; Z68.36 Body mass index [BMI] 36.0-36.9, adult; Z87.891 Personal history of nicotine dependence
CPT/HCPCS: 99203; 99212

== ENCOUNTER 2024-02-19 19:43 | Outpatient (CLI) | payer MEDICAID | END 2024-02-19 19:44 | disposition home or self-care (01) | LOC: SC 19:43 | PROVIDERS: ATTEND Nurse Practitioner Family | DX: G47.10 Hypersomnia, unspecified (principal); R53.83 Other fatigue; G47.8 Other sleep disorders; R51.9 Headache, unspecified; R06.83 Snoring; E66.9 Obesity, unspecified; Z68.36 Body mass index [BMI] 36.0-36.9, adult; I10 Essential (primary) hypertension; F32.A Depression, unspecified | CPT/HCPCS: 95810 ==

== ENCOUNTER 2024-02-20 12:16 | Outpatient (CLI) | payer MEDICAID ==
[2024-02-20 16:32] LABS: CALCIUM 9.6 mg/dL (8.5-10.3); CREATININE 0.9 mg/dL (0.6-1.3); POTASSIUM 3.4 mmol/L (3.5-4.5)
[2024-02-20 17:30] LABS: THYROID STIMULATING HORMONE 0.38 uIU/mL (0.34-5.60)
== END 2024-02-20 12:17 | disposition home or self-care (01) ==
LOC: LAB.S 12:16
PROVIDERS: ATTEND Physician Assistant Medical
DX: R03.0 Elevated blood-pressure reading, without diagnosis of hypertension (principal); N17.9 Acute kidney failure, unspecified; E03.9 Hypothyroidism, unspecified
CPT/HCPCS: 36415; 80048; 84443

== ENCOUNTER 2024-03-14 15:37 | Outpatient (CLI) | payer MEDICAID ==
--- NOTE | 2024-03-14 14:56 | SLEEP CARE CONSULTATION ---
Information from patient questionnaire entered by Elly Rutherford. I have reviewed and concur with the information entered by Elly Rutherford. This document represents the service I personally performed and the decisions made by , Peace Glover ARNP. History of Present Illness Service Date and Time: 03/14/2024 1440 Initial [place] Sleepiness Scale score: 11 (01/11/24) Current [place] Sleepiness Scale score: 13 (03/14/24) Additional HPI information: JOYA PITT returns via video appointment for follow up and results of the recently performed polysomnography. The patient was informed of the following findings: No significant sleep disordered breathing with an average AHI of 3.1 and sony oxygen saturation of 87%. I explained the pathophysiology behind obstructive sleep apnea. Patient does not have sleep apnea and was advised how weight gain could increase the risk of developing sleep apnea in the future. I strongly encouraged the patient to lose weight. Patient has light snoring. Snoring can be reduced by weight loss. Weight loss is best achieved with diet consult. Patient instructed to contact PCP for referral. Snoring can also be treated with an oral appliance from a dentist. Advised to check insurance coverage. In addition, an ENT evaluation can be do to see if other treatment is indicated. Patient counseled not drink alcohol less than 4 hours before bedtime as it can increase snoring and apnea. Patient was cautioned about risks of drowsy driving until sleepiness symptoms resolve. Patient denies drowsy driving. Sleep Study - Results Type of Sleep Study: Polysomnography (COMPLETED 02/19/24) Prior sleep studies: No Polysomnography/Home Sleep Study results: IMPRESSION: The quality of the study is good. 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 The sleep architecture was relatively normal considering the first-night effect. Respiratory monitoring showed no significant sleep disordered breathing (AHI = 3.1) or hypoxia (sony oxygen saturation of 87% and only 0.1% to the total sleep time was spent with oxygen saturation below 90%). The few respiratory events occurred mainly during supine sleep (supine AHI = 4.6; non-supine = 1.64). Snore was infrequent and light in intensity. There was no significant periodic leg movement of sleep. Cardiac rhythm was normal sinus rhythm without significant arrhythmia. No abnormal behavior (parasomnia) observed during the night. Allergies and Home Medications Known drug allergies: Yes (as listed) Drug allergies reviewed: Yes Home medication list reviewed: Yes (no changes) Allergy and home medication list: Allergies nortriptyline Allergy (Verified 03/12/24 12:01) Unknown duloxetine [From Cymbalta] Adverse Reaction (Severe, Verified 03/12/24 12:01) Unknown sertraline [From Zoloft] Adverse Reaction (Severe, Verified 03/12/24 12:01) Unknown venlafaxine Adverse Reaction (Severe, Verified 03/12/24 12:01) Unknown fluoxetine [From Prozac] Adverse Reaction (Intermediate, Verified 03/12/24 12:01) Unknown Review of Systems Review of systems same as previous: Yes (NO CHANGE) Physical Exam Vital signs obtained and entered by: ELLY Gaines MA Height: 5 ft 2 in (PER PT) Weight: 192 lb (PER PT) Body Mass Index: 35.1 BMI Classification: Obese Impression and Plan 1. Snoring but no significant sleep disordered breathing. Patient advised that often weight loss will reduce snoring as well as apnea risk. An oral appliance can also be used for snoring. This would require a dental consultation. Patient cautioned not to use other online appliances as can cause bite issues. Patient is advised to check if insurance will cover. An ENT consult can also be helpful to determine if any other treatment is an option. 2. Obesity, unspecified. Currently patients BMI is 35.1. Obesity increases the risk of apnea, CPAP pressure requirements and overall health risks especially cardiovascular and diabetes. Thus patient is advised to lose weight. * Attempt to lose weight * Avoid alcohol consumption near bedtime * Return as needed for follow up. Counseling Topics: Weight loss health impact Follow up with Sleep Care in: as needed Visit Type: Telehealth Video Video Type: Doximity Patient Location: in car Location of Provider: Office Patient agrees and consents to this telehealth visit type: Yes Time Spent with Patient (minutes): 11 Provider Statement: I spent 100% of the Telehealth Video Call with the patient with greater than 50% spent counseling the patient and coordination of care.
== END 2024-03-14 15:38 | disposition home or self-care (01) ==
LOC: SC 15:37
PROVIDERS: ATTEND Nurse Practitioner Family
DX: R06.83 Snoring (principal); E66.9 Obesity, unspecified; Z68.35 Body mass index [BMI] 35.0-35.9, adult

== ENCOUNTER 2024-04-12 13:54 | Emergency (ER) | payer MEDICAID ==
--- NOTE | 2024-04-12 17:33 | ED Physician Documentation ---
History of Present Illness - Stated complaint Stated Complaint: SOMETHING STUCK IN THROAT - Chief complaint Chief Complaint: General - History obtained from History obtained from: Patient - History of Present Illness Timing: Today - Additonal information Additional information: Madyson Curiel is a 48-year-old female with a history of panic attacks and a history of esophageal stricture. She was taking some of her blood pressure medication today when it felt like it got stuck. She states that she was able to get some water down following that but she has been told not to drink water since she has been here. Review of Systems Constitutional: denies: Fever Ears: denies: Ear pain Nose: denies: Congestion Throat: denies: Sore throat Cardiac: denies: Chest pain / pressure, Palpitations Respiratory: denies: Dyspnea, Cough GI: denies: Abdominal Pain, Nausea, Vomiting : denies: Dysuria, Frequency Skin: denies: Rash Musculoskeletal: reports: Neck pain, Back pain Neurologic: reports: Numbness (similar to always with neck pain). 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 : Incontinence, Renal insuffiency, Frequency HEENT: None Psych: Depression, Anxiety, Panic attacks, Post traumatic stress disorder, Claustrophobia Musculoskeletal: Osteoarthritis, Chronic back pain, Other Derm: Other - Past Surgical History Past Surgical History: Yes Ortho: Other /LANGUAGE ASSISTANT: section, Hysterectomy Neuro: Other - Present Medications Home Medications: Ambulatory Orders Medication Instructions Recorded Confirmed Escitalopram Oxalate 20 mg PO DAILY 05/26/22 03/14/24 Pantoprazole Sodium 20 mg PO DAILY PRN 05/26/22 03/14/24 tiZANidine [Zanaflex] 4 mg PO BID PRN 05/26/22 03/14/24 Cyclobenzaprine [Flexeril] 10 mg PO TID PRN 05/31/22 03/14/24 Acetaminophen [Acetaminophen Extra 1,000 mg PO Q8H PRN #60 tablet 06/10/22 03/14/24 Strength] Guanfacine HCl [Intuniv] 1 mg PO DAILY 03/23/23 03/14/24 Levothyroxine [Synthroid] 112 mcg PO QDAC 03/23/23 03/14/24 Multivitamin 1 each PO DAILY 03/23/23 03/14/24 [place]-3S/Dha/Epa/Fish Oil [Fish 1 each PO DAILY 03/23/23 03/14/24 Oil 1,200 mg Softgel] Solifenacin Succinate 5 mg PO DAILY 03/23/23 03/14/24 Vitamin B Complex [B-Complex] 1 each PO DAILY 03/23/23 03/14/24 Lyrica See Rx Instructions .ROUTE .COMPLEX 01/11/24 03/14/24 Oxycodone HCl/Acetaminophen 1 - 2 each PO Q6H PRN #14 tablet 04/12/24 [Percocet 5-325 mg Tablet] - Allergies Allergies/Adverse Reactions: Allergies Allergy/AdvReac Type Severity Reaction Status Date / Time nortriptyline Allergy Unknown Verified 04/12/24 13:57 duloxetine [From Cymbalta] AdvReac Severe Unknown Verified 04/12/24 13:57 sertraline [From Zoloft] AdvReac Severe Unknown Verified 04/12/24 13:57 venlafaxine AdvReac Severe Unknown Verified 04/12/24 13:57 fluoxetine [From Prozac] AdvReac Intermediate Unknown Verified 04/12/24 13:57 - Social History Does the pt smoke?: No Smoking Status: Never smoker Does the pt drink ETOH?: Yes Does the pt have substance abuse?: No - Immunizations Immunizations are current?: Yes - POLST Patient has POLST: No PD ED PE NORMAL - Vitals Vital signs reviewed: Yes (Hypertensive) - General General: Alert and oriented X 3 (Hypertensive), Well developed/nourished, Other (The patient appears to be sleeping when I enter the room and when she awakens she immediately feels a sense of panic and feels that she had just passed out. She begins hyperventilating and crying. ) - HEENT HEENT: Atraumatic, PERRL, EOMI - Neck Neck: Supple, no meningeal sign, No bony TTP - Cardiac Cardiac: RRR, No murmur - Respiratory Respiratory: No respiratory distress, Clear bilaterally - Abdomen Abdomen: Soft, Non tender - Back Back: No CVA TTP, No spinal TTP - Derm Derm: Normal color, Warm and dry, No rash - Extremities Extremities: No deformity, No edema - Neuro Neuro: Alert and oriented X 3, psychiatric attendant 2-12 intact, No motor deficit, No sensory deficit, Normal speech Eye Opening: Spontaneous Motor: Obeys Commands Verbal: Oriented GCS Score: 15 - Psych Psych: Normal mood, Normal affect Results - Vitals Vitals: Vital Signs - 24 hr 04/12/24 04/12/24 13:58 17:52 Temperature 36.5 C 36.8 C Heart Rate 68 74 Respiratory 16 18 Rate Blood Pressure 182/99 H 176/103 H O2 Saturation 99 97 Oxygen O2 Source Room air PD Medical Decision Making - ED course Complexity details: re-evaluated patient, considered differential, d/w patient ED course: 48-year-old female with a history of esophageal stricture and a sensation that she has swallowed her pills wrong awakens when I walk into the room and has an immediate panic attack. She is able to calm herself enough to take a drink of a soda which goes down well she does have some pain associated with the swallowing that resolves rapidly. She still has some hyperventilation and crying and she is administered a milligram of Ativan IM. She is able to think more clearly and able to give more history she does have a sensation of foreign body in the esophagus with swallowing. She is requesting pain medication for neck and back pain which she states she has chronically and this is currently bothering her. Departure - Departure Disposition: 01 Home, Self Care Clinical Impression: Cervical myofascial pain syndrome Esophageal abrasion Qualifiers: Encounter type: initial encounter Qualified Code(s): S27.818A - Other injury of esophagus (thoracic part), initial encounter Condition: Stable Instructions: ED Foreign Body Esophageal Rslv, ED Neck Back Pain General Follow-Up: Your, doctor [Other] Prescriptions: Oxycodone HCl/Acetaminophen [Percocet 5-325 mg Tablet] 1 - 2 each PO Q6H PRN #14 tablet PRN Reason: pain Comments: Madyson, today looks like you have an abrasion to your esophagus from swallowing a pill. The sensation from this should resolve within 1-1/2 days. Eat soft foods and drink fluids. I have E scribed some Percocet to [facility] in [place] for your chronic neck pain. Forms: PCP List
[2024-04-12] MEDS: LORazepam 2 MG/ML VIAL IM STA (17:37)
[2024-04-12 18:50] VITALS: BP 176/100; O2SAT 99
== END 2024-04-12 18:41 | disposition home or self-care (01) ==
LOC: ED 13:54
DX: M79.18 Myalgia, other site (principal); S27.818A Other injury of esophagus (thoracic part), initial encounter; W44.8XXA Other foreign body entering into or through a natural orifice, initial encounter; F41.0 Panic disorder [episodic paroxysmal anxiety]
CPT/HCPCS: 36415; 80048; 84443; 96372; 99283; J2060

== ENCOUNTER 2024-04-12 16:10 | Outpatient (CLI) | payer MEDICAID ==
[2024-04-12 17:06] LABS: CALCIUM 9.6 mg/dL (8.5-10.3); CREATININE 0.9 mg/dL (0.6-1.3); POTASSIUM 3.5 mmol/L (3.5-4.5)
[2024-04-12 17:17] LABS: THYROID STIMULATING HORMONE 3.23 uIU/mL (0.34-5.60)
== END 2024-04-12 16:11 | disposition home or self-care (01) ==
LOC: LAB 16:10
PROVIDERS: ATTEND Physician Assistant Medical
DX: R03.0 Elevated blood-pressure reading, without diagnosis of hypertension (principal); E03.9 Hypothyroidism, unspecified; N17.9 Acute kidney failure, unspecified
CPT/HCPCS: 36415; 80048; 84443

== ENCOUNTER 2024-04-14 18:25 | Emergency (ER) | payer MEDICAID ==
[2024-04-14 18:39] VITALS: BP 148/87
--- NOTE | 2024-04-14 19:09 | ED Physician Documentation ---
PD HPI HEAD INJURY - Stated complaint Stated Complaint: FALL,HEAD PX - Chief complaint Chief Complaint: Trauma Hd/Nk - History obtained from History obtained from: Patient (She was chasing her son yesterday and fell backwards hitting the back of her head and now she has a severe headache and feels slightly confused. No other injuries. 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: section, Hysterectomy Neuro: Other - Present Medications Home Medications: Ambulatory Orders Medication Instructions Recorded Confirmed Escitalopram Oxalate 20 mg PO DAILY 05/26/22 03/14/24 Pantoprazole Sodium 20 mg PO DAILY PRN 05/26/22 03/14/24 tiZANidine [Zanaflex] 4 mg PO BID PRN 05/26/22 03/14/24 Cyclobenzaprine [Flexeril] 10 mg PO TID PRN 05/31/22 03/14/24 Acetaminophen [Acetaminophen Extra 1,000 mg PO Q8H PRN #60 tablet 06/10/22 03/14/24 Strength] Guanfacine HCl [Intuniv] 1 mg PO DAILY 03/23/23 03/14/24 Levothyroxine [Synthroid] 112 mcg PO QDAC 03/23/23 03/14/24 Multivitamin 1 each PO DAILY 03/23/23 03/14/24 [place]-3S/Dha/Epa/Fish Oil [Fish 1 each PO DAILY 03/23/23 03/14/24 Oil 1,200 mg Softgel] Solifenacin Succinate 5 mg PO DAILY 03/23/23 03/14/24 Vitamin B Complex [B-Complex] 1 each PO DAILY 03/23/23 03/14/24 Lyrica See Rx Instructions .ROUTE .COMPLEX 01/11/24 03/14/24 Oxycodone HCl/Acetaminophen 1 - 2 each PO Q6H PRN #14 tablet 04/12/24 [Percocet 5-325 mg Tablet] - Allergies Allergies/Adverse Reactions: Allergies Allergy/AdvReac Type Severity Reaction Status Date / Time nortriptyline Allergy Unknown Verified 04/12/24 13:57 duloxetine [From Cymbalta] AdvReac Severe Unknown Verified 04/12/24 13:57 sertraline [From Zoloft] AdvReac Severe Unknown Verified 04/12/24 13:57 venlafaxine AdvReac Severe Unknown Verified 04/12/24 13:57 fluoxetine [From Prozac] AdvReac Intermediate Unknown Verified 04/12/24 13:57 - Social History Does the pt smoke?: No Smoking Status: Never smoker Does the pt drink ETOH?: Yes Does the pt have substance abuse?: No - Immunizations Immunizations are current?: Yes - POLST Patient has POLST: No PD ED PE NORMAL - Vitals Vital signs reviewed: Yes - General General: Alert and oriented X 3, No acute distress, Other (Slow slurred speech and smells of alcohol.) - HEENT HEENT: PERRL, EOMI - Neck Neck: Supple, no meningeal sign, No bony TTP - Neuro Neuro: Alert and oriented X 3 Eye Opening: Spontaneous Motor: Obeys Commands Verbal: Oriented GCS Score: 15 Results - Vitals Vitals: Vital Signs - 24 hr 04/14/24 18:27 Temperature 36.7 C Heart Rate 76 Respiratory 16 Rate Blood Pressure 148/87 H O2 Saturation 97 Oxygen O2 Source Room air - Rads (name of study) CT of the head was unremarkable. Relevant Findings:: Final report received, EMP independent interpretation of test PD Medical Decision Making - ED course ED course: She presents with concerning concussive symptoms. She may also be intoxicated. I did not see any medical indication for specific toxicology testing but did review the chart which does show a history of concerns for alcohol and positive alcohol levels. Cranial imaging was negative for intracranial hemorrhage or other worrisome finding. Departure - Departure Disposition: 01 Home, Self Care Clinical Impression: Concussion Qualifiers: Encounter type: initial encounter Loss of consciousness presence/duration: without LOC Qualified Code(s): S06.0X0A - Concussion without loss of consciousness, initial encounter Condition: Good Record reviewed to determine appropriate education?: Yes Instructions: ED Concussion Comments: You are seen today for concussive symptoms. Please refrain from drinking alcohol. Follow-up with your primary care physician and return for new or worsening symptoms. Forms: PCP List
[2024-04-14] MEDS: HYDROcod/ACETAM 5/325 MG TABLET PO STA (19:22)
--- NOTE | 2024-04-14 20:52 | CT Report ---
PROCEDURE: Head WO INDICATIONS: head inj TECHNIQUE: Noncontrast 4.5 mm thick angled axial sections acquired from the foramen magnum to the vertex. For r adiation dose reduction, the following was used: automated exposure control, adjustment of mA and/or kV according to patient size. COMPARISON: CT head 08/14/2023 FINDINGS: Image quality: Excellent. CSF spaces: Basal cisterns are patent. No extra-axial fluid collections. Ventricles are normal in size and shape. Brain: No midline shift. No intracranial masses or hemorrhage. Hercules-white matter interface is norm al. Skull and face: Calvarium and visualized facial bones are intact, without suspicious lesions. Sinuses: Visualized sinuses and mastoids are clear. IMPRESSION: No acute intracranial pathology. Reviewed by: Joan Anne MD on 04/14/2024 8:51 PM PDT Approved by: Joan Anne MD on 04/14/2024 8:51 PM PDT Station ID: [id number]
[2024-04-14 21:14] VITALS: O2SAT 98
== END 2024-04-14 21:10 | disposition home or self-care (01) ==
LOC: ED 18:25
DX: S06.0X0A Concussion without loss of consciousness, initial encounter (principal); W18.39XA Other fall on same level, initial encounter; Y93.02 Activity, running
CPT/HCPCS: 70450; 99283; 99284; A9270

== ENCOUNTER 2024-06-19 01:54 | Outpatient (CLI) | payer MEDICAID | END 2024-06-19 22:35 | disposition EMS.NT | LOC: EMS 01:54 | DX: R55 Syncope and collapse (principal) ==